=== PATIENT | female | born 1985 | race Caucasian/White ===

== ENCOUNTER 2016-07-31 20:50 | Emergency (ER) | payer SELFPAY ==
[~2016-07-31 20:50] MED LIST: ACET-749 PO; MTR600X PO; PRENTAB26 PO
[2016-07-31 20:52] VITALS: TEMP 36.7; O2SAT 98; Ht 165.1 cm
[2016-07-31] MEDS ORDERED: OXYCODONE HCL IR 5 MG TAB (IMMEDIATE RELEASE) PO STA (21:11)
[2016-07-31] MEDS ORDERED: ONDANSETRON 4MG OD TAB PO ONE (21:15)
--- NOTE | 2016-07-31 21:38 | DIAGNOSTIC IMAGING REPORT ---
HEAD CT NONCONTRAST CT DOSE: HISTORY: CHI/neck pain s/p fall TECHNIQUE: Multiaxial CT images of the head were performed without the use of intravenous contrast. Automated exposure control was utilized for this study. Comparison: None. Findings: The paranasal sinuses and mastoid air cells are clear. The calvarium and skull base are intact. The ventricles and sulci are within normal limits. There is no mass, hematoma, midline shift, or acute infarct. Impression: No acute intracranial abnormality. Electronically signed by: Adalberto Nguyen M.D. 07/31/2016 9:36 PM Dictated Date/Time: 07/31/2016 9:34 PM
--- NOTE | 2016-07-31 21:42 | DIAGNOSTIC IMAGING REPORT ---
CERVICAL SPINE CT CT DOSE: 1086.22 mGy.cm HISTORY: CHI/neck pain s/p fall TECHNIQUE: Multiaxial CT images of the cervical spine were performed and reformatted in the sagittal and coronal plane without the use of contrast. COMPARISON: None. FINDINGS: No fractures. No subluxation. Prevertebral soft tissues and the C1-C2 interval are intact. No pneumothorax. Posterior fusion defects at C1 with only a small portion of the C1 posterior arch remaining. This is considered developmental. Reversal of the normal lordotic curvature. IMPRESSION: No fractures within the cervical spine. Reversal of the normal lordotic curvature. Electronically signed by: Adalberto Nguyen M.D. 07/31/2016 9:40 PM Dictated Date/Time: 07/31/2016 9:37 PM
--- NOTE | 2016-07-31 21:49 | DIAGNOSTIC IMAGING REPORT ---
RIGHT KNEE 3 VIEWS HISTORY: R knee pain s/p fall Right COMPARISON: None. FINDINGS: There is no fracture or dislocation. Soft tissues are unremarkable. No radiopaque foreign bodies. No knee effusion. IMPRESSION: No fractures. Electronically signed by: Adalberto Nguyen M.D. 07/31/2016 9:47 PM Dictated Date/Time: 07/31/2016 9:46 PM
--- NOTE | 2016-07-31 21:50 | DIAGNOSTIC IMAGING REPORT ---
RIGHT WRIST 4 VIEWS HISTORY: R wrist pain s/p fall Right COMPARISON: None. FINDINGS: There is no fracture or dislocation. Soft tissues are unremarkable. No radiopaque foreign bodies. IMPRESSION: No fractures. Electronically signed by: Adalberto Nguyen M.D. 07/31/2016 9:49 PM Dictated Date/Time: 07/31/2016 9:47 PM
[2016-07-31] MEDS ORDERED: TRAMADOL HCL 50 MG HOME PACK PO ONE (22:30)
[2016-07-31] MEDS ORDERED: TRAM-10 PO (22:33)
[2016-07-31] MEDS ORDERED: ONDA4TAB10 SL (22:33)
[2016-07-31] MEDS ORDERED: ONDANSETRON HOME PACK 4MG OD TAB PO ONE (22:45)
[2016-07-31 23:40] VITALS: BP 133/103; PULSE 97
--- NOTE | 2016-07-31 23:54 | EMERGENCY ROOM VISIT NOTE ---
History First contact with patient: 20:56 Chief Complaint: FALL Stated Complaint: FELL DOWN HIT HEAD, ARM AND KNEE History of Present Illness The patient is a 30 year old female who presents to the Emergency Room with complaints of injuries after she slipped on a wet floor at the [employer] store. She complains of a head injury with headache. She is uncertain if she lost consciousness. She reports nausea and worsening frontal headache. She also reports mild neck pain. She also complains of significant right wrist and right knee pain from her fall. She denies back pain, chest pain, abdominal pain or left-sided extremity injuries. She rates her discomfort a 10 out of 10. Review of Systems 10 system review was performed and was negative except for pertinent positives and negatives as indicated in history of present illness Past Medical/Surgical History Medical Problems: (1) Headache (2) Toxemia of Social History Smoking Status: Never Smoker Alcohol Use: none Drug Use: none Marital Status: Housing Status: lives with significant other Current/Historical Medications Scheduled Ondasetron Odt (Zofran Odt), 4 MG SL Q6H Scheduled PRN Tramadol (Ultram), 1-2 TAB PO Q4H PRN for Pain Allergies Coded Allergies: No Known Allergies (Unverified , 07/31/16) Physical Exam Vital Signs Date Time Temp Pulse Resp B/P Pulse Ox O2 Delivery O2 Flow Rate FiO2 07/31/16 23:40 97 18 133/103 07/31/16 20:52 36.7 90 21 151/104 98 Room Air Physical Exam CONSTITUTIONAL: Healthy and well nourished. Alert and oriented X 3 with positive affect. She appears in moderately severe discomfort from her headache , and holding an emesis bag. HEENT: Normocephalic, atraumatic. No lacerations or hematomas. Pupils equal, round and reactive. No subconjunctival hemorrhage, epistaxis, hemotympanum, raccoon's eyes or Moreland sign. NECK: The patient has mild tenderness to palpation of the cervical musculature without any focal central cervical spine tenderness to palpation. RESPIRATORY: Clear to auscultation bilaterally with no wheezing, crackles, rhonchi or stridor. CARDIOVASCULAR: Regular rate and rhythm with no murmurs, rubs or gallops. GASTROINTESTINAL: Bowel sounds present in all quadrants. Soft and nontender to palpation. MUSCULOSKELETAL: Examination shows diffuse edema of the right wrist and knee. No open wounds noted. She is tender to palpation about the entire wrist and knee region. No knee effusion appreciated. The patient refused any range of motion of the wrist or knee. Capillary refill is less than 2 seconds of the right hand. She otherwise has no tenderness to palpation through the thoracolumbar spine or ribs. Distal pulses are intact. INTEGUMENTARY: No rash or other significant dermatologic conditions noted. NEUROLOGIC: No focal neurologic deficits noted. Upper and lower extremities are sensory intact. Normal finger to nose test. Negative pronator drift. Medical Decision & Procedures ER Provider Diagnostic Interpretation: My interpretation of right wrist x-rays does not show any acute fractures or carpal bone dislocation. Radiologist report is as follows: RIGHT WRIST 4 VIEWS HISTORY: R wrist pain s/p fall Right COMPARISON: None. FINDINGS: There is no fracture or dislocation. Soft tissues are unremarkable. No radiopaque foreign bodies. IMPRESSION: No fractures. My interpretation of right knee x-rays does not show any acute fractures, dislocation, patellar subluxation or joint effusion. Radiologist report is as follows: The RIGHT KNEE 3 VIEWS HISTORY: R knee pain s/p fall Right COMPARISON: None. FINDINGS: There is no fracture or dislocation. Soft tissues are unremarkable. No radiopaque foreign bodies. No knee effusion. IMPRESSION: No fractures. Noncontrast CT of the head does not show any fracture, intracranial bleed, midline shift or mass effect. Radiologist report is as follows: HEAD CT NONCONTRAST CT DOSE: HISTORY: CHI/neck pain s/p fall TECHNIQUE: Multiaxial CT images of the head were performed without the use of intravenous contrast. Automated exposure control was utilized for this study. Comparison: None. Findings: The paranasal sinuses and mastoid air cells are clear. The calvarium and skull base are intact. The ventricles and sulci are within normal limits. There is no mass, hematoma, midline shift, or acute infarct. Impression: No acute intracranial abnormality. Noncontrast CT of the cervical spine does not show any acute fracture or subluxation. Lordotic reversal is noted. Radiologist report is as follows: CERVICAL SPINE CT CT DOSE: 1086.22 mGy.cm HISTORY: CHI/neck pain s/p fall TECHNIQUE: Multiaxial CT images of the cervical spine were performed and reformatted in the sagittal and coronal plane without the use of contrast. COMPARISON: None. FINDINGS: No fractures. No subluxation. Prevertebral soft tissues and the C1-C2 interval are intact. No pneumothorax. Posterior fusion defects at C1 with only a small portion of the C1 posterior arch remaining. This is considered developmental. Reversal of the normal lordotic curvature. IMPRESSION: No fractures within the cervical spine. Reversal of the normal lordotic curvature. Medications Administered Medications (Trade) Dose Ordered Sig/[facility] Route Start Time Stop Time Status Last Admin Dose Admin Oxycodone HCl (Roxicodone Immediate Rel Tab) 5 mg NOW STAT PO 07/31/16 21:11 07/31/16 21:14 DC 07/31/16 21:11 5 MG Ondansetron HCl (Zofran Odt) 4 mg ONE ONCE PO 07/31/16 21:15 07/31/16 21:16 DC 07/31/16 21:15 4 MG Tramadol HCl (Ultram Home Pack) 1 homepack UD ONCE PO 07/31/16 22:30 07/31/16 22:31 DC 07/31/16 22:37 1 HOMEPACK Ondansetron HCl (ZOFRAN ODT 4MG Home Pack) 1 homepack UD ONCE PO 07/31/16 22:45 07/31/16 22:46 DC 07/31/16 22:37 1 HOMEPACK ED Course Patient history and physical exam were performed. Nurse's notes were reviewed. Vital signs were reviewed, showing a blood pressure 151/104. The patient is not tachycardic. The patient was administered OxyIR 5 mg and Zofran 4 mg ODT for pain and nausea. X-rays of the right wrist and right knee were normal. Noncontrast CT of the head and cervical spine were also normal. The patient was advised of her normal studies. At this point, a wrist lacer and knee immobilizer were applied. The patient was also dispensed a walker to help with ambulation. The patient was provided home packs and prescriptions for Ultram and Zofran ODT. The patient reports that she currently does not have a family doctor. She was provided contact information for the [facility] as they are next on our list for unassigned outpatient follow-up. She was also provided a concussion handout, and instructed to limit her activities until her symptoms improve. Several times throughout the evaluation, the patient's mother interjected regarding the choice of imaging studies and workup that was being performed.. Prior to discharge, she wanted to review the images. I did explain that I as well as the radiologist reviewed the x-rays and were normal. Reviewing the x- rays, it is obvious that she has not had any training reading x-rays. She became frustrated, stating that there are several areas where she hurts. The patient also was saying that her wrist and knee were still painful after being given pain medications. I had to politely advise her that she did have a fall and injury, and that the pain medications will not completely take the pain away. I offered to perform additional imaging studies and administer additional pain medication, but the patient reported that she would rather go home and go to sleep. The patient also apologized for her mother, stating that she is just worried about her injuries from her fall. The patient was welcome to return to the emergency department as needed for any additional symptoms from her fall. It is also noted that her blood pressure was elevated, likely secondary to pain response. She was instructed to discuss this with her PCP during her follow- up. The patient voiced understanding of all discharge instructions, was happy with plan of care, and rated her pain a 4 out of 10 at the time of discharge. Impression Primary Impression: Concussion Additional Impressions: Right wrist sprain Injury of right knee Fall from slipping on wet surface Elevated blood pressure reading Departure Information Prescriptions Ondasetron Odt (ZOFRAN ODT) 4 Mg Tab 4 MG SL Q6H for Nausea, #10 TAB Prov: Luis Tuttle PA 07/31/16 Tramadol (Ultram) 50 Mg Tab 1-2 TAB PO Q4H Y for Pain, #30 TAB For Initial Treatment Prov: Luis Tuttle PA 07/31/16 Referrals No Doctor, Assigned (PCP) Patient Instructions [facility] Problem Qualifiers Primary Impression: Concussion Encounter type: initial encounter Loss of consciousness presence/duration: without LOC Qualified Codes: S06.0X0A - Concussion without loss of consciousness, initial encounter Additional Impressions: Right wrist sprain Encounter type: initial encounter Qualified Codes: S63.501A - Unspecified sprain of right wrist, initial encounter Injury of right knee Encounter type: initial encounter Qualified Codes: S89.91XA - Unspecified injury of right lower leg, initial encounter Fall from slipping on wet surface Encounter type: initial encounter Qualified Codes: W01.0XXA - Fall on same level from slipping, tripping and stumbling without subsequent striking against object, initial encounter
== END 2016-07-31 23:41 | disposition home or self-care (01) ==
LOC: C.EDB 20:52 → C.EDD 23:41
DX: S06.0X0A Concussion without loss of consciousness, initial encounter (principal); S63.501A Unspecified sprain of right wrist, initial encounter; S89.91XA Unspecified injury of right lower leg, initial encounter; W01.0XXA Fall on same level from slipping, tripping and stumbling without subsequent striking against object, initial encounter; R03.0 Elevated blood-pressure reading, without diagnosis of hypertension

== ENCOUNTER → 2017-05-17 | Outpatient (CLI) | payer OTHER | END | disposition home or self-care (01) | LOC: C.PAPS 07:47 | PROVIDERS: ATTEND Obstetrics & Gynecology | DX: Z34.81 Encounter for supervision of other normal pregnancy, first trimester (principal) ==

== ENCOUNTER → 2017-05-18 | Outpatient (CLI) | payer OTHER | END | disposition home or self-care (01) | LOC: C.LABSPEC 14:25 | PROVIDERS: ATTEND Obstetrics & Gynecology | DX: Z34.81 Encounter for supervision of other normal pregnancy, first trimester (principal) ==

== ENCOUNTER → 2017-05-31 | Outpatient (CLI) | payer OTHER | END | disposition home or self-care (01) | LOC: C.LABSPEC 14:46 | PROVIDERS: ATTEND Obstetrics & Gynecology | DX: O12.11 Gestational proteinuria, first trimester (principal) ==

== ENCOUNTER → 2017-06-30 | Outpatient (CLI) | payer OTHER ==
[2017-06-30 16:00] LABS: ALBUMIN 2.8 gm/dl (3.4-5.0); BLOOD UREA NITROGEN 9 mg/dl (7-18); CALCIUM 9.2 mg/dl (8.5-10.1); CARBON DIOXIDE 24 mmol/L (21-32); CREATININE 0.55 mg/dl (0.60-1.20); GLUCOSE 93 mg/dl (70-99); POTASSIUM 3.8 mmol/L (3.5-5.1); SODIUM 135 mmol/L (136-145)
[2017-06-30 16:01] LABS: PHOSPHORUS 3.3 mg/dl (2.5-4.9)
== END | disposition home or self-care (01) ==
LOC: C.LAB1850 13:43
PROVIDERS: ATTEND Internal Medicine Nephrology
DX: R80.9 Proteinuria, unspecified (principal)

== ENCOUNTER → 2017-07-06 | Outpatient (CLI) | payer OTHER ==
--- NOTE | 2017-07-06 11:22 | DIAGNOSTIC IMAGING REPORT ---
RENAL ULTRASOUND CLINICAL HISTORY: NEPHROTIC SYNDROME COMPARISON STUDY: CT of the abdomen and pelvis September 27, 2012. TECHNIQUE: Sonography of the kidneys and the urinary bladder was performed. FINDINGS: Both kidneys measure 13.8 cm in maximal dimension. Renal echogenicity, size and cortical thickness are normal. There is no hydronephrosis. No calculi or masses are identified by sonography. Bladder is unremarkable by sonography. IMPRESSION: Normal sonographic appearance of the kidneys. No hydronephrosis. Electronically signed by: Andrae Knight M.D. 07/06/2017 11:21 AM Dictated Date/Time: 07/06/2017 11:20 AM
== END | disposition home or self-care (01) ==
LOC: C.ULTR 10:33
PROVIDERS: ATTEND Internal Medicine Nephrology
DX: N04.9 Nephrotic syndrome with unspecified morphologic changes (principal)

== ENCOUNTER → 2017-08-01 | Outpatient (CLI) | payer OTHER | END | disposition home or self-care (01) | LOC: C.LAB 14:00 | PROVIDERS: ATTEND Internal Medicine | DX: R80.9 Proteinuria, unspecified (principal) ==

== ENCOUNTER 2017-10-31 12:15 | Outpatient (CLI) | payer OTHER ==
[~2017-10-31 12:15] MED LIST changes: -ACET-749 PO; +DOXY30TA PO; +LABE100T3 PO; -MTR600X PO
== END 2017-10-31 13:20 | disposition home or self-care (01) ==
LOC: C.OPB 12:15 → C.LD 12:16 → C.OPB 13:20
PROVIDERS: ATTEND Obstetrics & Gynecology
DX: O16.9 Unspecified maternal hypertension, unspecified trimester (principal); Z3A.00 Weeks of gestation of pregnancy not specified

== ENCOUNTER 2017-11-07 20:31 | Outpatient (CLI) | payer OTHER ==
[~2017-11-07] VITALS: Ht 160 cm; Wt 108.2 kg
[2017-11-07 21:13] VITALS: Ht 160 cm; Wt 108.2 kg
== END 2017-11-07 21:05 | disposition home or self-care (01) ==
LOC: C.OPB 20:31 → C.LD 20:31 → C.OPB 21:05 → C.LD 21:05
PROVIDERS: ATTEND Obstetrics & Gynecology
DX: O26.899 Other specified pregnancy related conditions, unspecified trimester (principal); Z3A.00 Weeks of gestation of pregnancy not specified

== ENCOUNTER 2017-11-14 21:45 | Outpatient (CLI) | payer OTHER | END 2017-11-14 23:05 | disposition home or self-care (01) | LOC: C.LD 21:45 → C.OPB 21:45 | PROVIDERS: ATTEND Obstetrics & Gynecology | DX: O16.9 Unspecified maternal hypertension, unspecified trimester (principal); Z3A.00 Weeks of gestation of pregnancy not specified ==

== ENCOUNTER 2017-11-21 11:51 | Outpatient (CLI) | payer OTHER ==
[~2017-11-21 11:51] MED LIST changes: -DOXY30TA PO
--- NOTE | 2017-11-23 13:26 | EDITING REQUIRED CODING QUERY ---
DIAGNOSIS NEEDED To promote full compliance with coding requirements relating to patient care, physician participation is requested in all cases of engagement quality consultant uncertainty. Please assist us with the question(s) below: Coding Question: The patient received care in labor and delivery on 11/21/17 as noted within the record. Please document the diagnosis that is being addressed by the medication/treatment. Provider Response: DIAGNOSIS:chronic proteinuria WEEKS OF GESTATION: 35 weeks Thank you for your assistance, Bernarda Mccarthy - Engagement Quality Consultant
== END 2017-11-21 12:25 | disposition home or self-care (01) ==
LOC: C.OPB 11:51 → C.LD 11:52 → C.OPB 12:25
PROVIDERS: ATTEND Obstetrics & Gynecology
DX: O12.13 Gestational proteinuria, third trimester (principal); Z3A.35 35 weeks gestation of pregnancy

== ENCOUNTER 2017-11-28 14:55 | Outpatient (CLI) | payer OTHER ==
--- NOTE | 2017-12-01 09:16 | EDITING REQUIRED CODING QUERY ---
DIAGNOSIS NEEDED To promote full compliance with coding requirements relating to patient care, physician participation is requested in all cases of flying teacher uncertainty. Please assist us with the question(s) below: Coding Question: The patient received care in labor and delivery on 11/28/17 as noted within the record. Please document the diagnosis that is being addressed by the medication/treatment. Provider Response: DIAGNOSIS: Chronic proteinuria Intrauterine 35 weeks 5 days WEEKS OF GESTATION: Thank you for your assistance, Bernarda Mccarthy - Wildlife Photographer
== END 2017-11-28 15:53 | disposition home or self-care (01) ==
LOC: C.OPB 14:55 → C.LD 14:56 → C.OPB 15:53
PROVIDERS: ATTEND Obstetrics & Gynecology
DX: O12.13 Gestational proteinuria, third trimester (principal); Z3A.35 35 weeks gestation of pregnancy

== ENCOUNTER 2017-11-30 19:25 | Outpatient (CLI) | payer OTHER ==
[~2017-11-30] VITALS: Ht 160 cm; Wt 108.0 kg
[2017-11-30 19:59] VITALS: Ht 160 cm; Wt 108.0 kg
[2017-11-30] MEDS ORDERED: RANI1TAB77 (20:03)
--- NOTE | 2017-11-30 21:04 | HISTORY & PHYSICAL EXAMINATION ---
DATE OF ADMISSION: 11/30/2017 CHIEF COMPLAINT: Contractions, intrauterine 36 weeks gestation, chronic proteinuria. HISTORY OF PRESENT ILLNESS: The patient is a 32-year-old 2, para 1. She has a history of chronic proteinuria. She had had it for her first . Her second is well dated her due date is 12/28/2017. She is currently being followed also by a service crew leader outside of the hospital. He occasionally does lab work on her. Her due date is 12/28/2017. She has been well dated. First was an induction at 39 weeks, boy, 8 pounds 11 ounces 2-1/2 years ago. Present has been complicated by hypertension. She was placed on labetalol 3 times a day, early in her . It is well controlled, if she does not miss any of her doses. She stated that she had contractions about 5:00, called the office thought she was in labor, came to the hospital, and the cervix was posterior, closed. There were no contraction pattern noted on the monitor NST was reactive. She has not complained of any bleeding or leakage of fluid. She was instructed to return to the office later in the week and we would set up a date for induction. PAST MEDICAL HISTORY: She has 2-1/2-year-old boy in good health. ALLERGIES: No known drug allergies. PAST SURGICAL HISTORY: No previous surgery. MEDICAL HISTORY: Chronic proteinuria and hypertension. SOCIAL HISTORY: No smoking. No alcohol intake. Fabs-ma-btmw mom. FAMILY HISTORY: Mom 46 of Crohn's disease. Father 60, high blood pressure, diabetes, elevated cholesterol. Two brothers, 1 sister. One brother has high blood pressure. One sister has thyroid disease. REVIEW OF SYSTEMS: She occasionally gets headaches especially when she misses her labetalol dose. PHYSICAL EXAMINATION: GENERAL: Well-developed, well-nourished 32-year-old white female, alert, oriented x3 and cooperative in no acute distress, appears stated age. EYES: Conjunctivae are pink. Sclerae white, no evidence of jaundice. EARS: Had normal light reflex bilaterally. HEART: Had regular rhythm. S1 and S2 were normal. ABDOMEN: Soft and nontender, consistent with 36 weeks gestation. No CVA tenderness, no calf tenderness. PELVIC: Cervix is posterior, closed, presenting part floating. MUSCULOSKELETAL: No calf tenderness. IMPRESSIONS OF THIS CASE: Intrauterine 36 weeks gestation, hypertension and chronic proteinuria, false labor. YOALNDAD
== END 2017-11-30 20:42 | disposition home or self-care (01) ==
LOC: C.OPB 19:25 → C.LD 19:25 → C.OPB 20:42
PROVIDERS: ATTEND Obstetrics & Gynecology
DX: O12.13 Gestational proteinuria, third trimester (principal); O62.9 Abnormality of forces of labor, unspecified; O16.3 Unspecified maternal hypertension, third trimester; Z3A.36 36 weeks gestation of pregnancy

== ENCOUNTER 2019-12-25 21:46 | Observation (INO) ==
[2019-12-25] MEDS ORDERED: KETOROLAC 30 MG/ML VIAL IV STA (22:45)
[2019-12-25] MEDS ORDERED: SODIUM CHLORIDE 0.9% 1000ML 1,000 ML IV SCH (22:45)
[2019-12-25] MEDS ORDERED: ONDANSETRON INJ 2 MG/ML 2 ML VIAL IV STA (22:45)
[2019-12-25] MEDS ORDERED: MoRPHine SULFATE 4 MG/ML 1 ML CARP\\VIAL IV STA (22:45)
[2019-12-25 22:58] LABS: Basophils # (auto) 0.02 K/uL (0-0.2); Basophils % (auto) 0.1 %; Eosinophils # (auto) 0.05 K/uL (0-0.5); Eosinophils % (auto) 0.3 %; Hematocrit (blood only) 39.6 % (37-47); Hemoglobin 12.8 g/dL (12.0-16.0); Immature Granulocytes # (auto) 0.07 K/uL (0.00-0.02); Immature Granulocytes % (auto) 0.4 %; Lymphocytes # (auto) 1.14 K/uL (1.2-3.4); Lymphocytes % (auto) 6.5 %; Mean Corpuscular Hemoglobin 24.3 pg (25-34); Mean Corpuscular Hgb Conc 32.3 g/dL (32-36); Mean Corpuscular Volume 75.3 fL (80-100); Mean Platelet Volume 9.7 fL (7.4-10.4); Monocytes # (auto) 1.05 K/uL (0.11-0.59); Neutrophils # (auto) 15.19 K/uL (1.4-6.5); Neutrophils % (auto) 86.7 %; Platelet Count 345 K/uL (130-400); RDW Coefficient of Variation 15.7 % (11.5-14.5); RDW Standard Deviation 42.8 fL (36.4-46.3); Red Blood Count 5.26 M/uL (4.2-5.4); White Blood Count 17.52 K/uL (4.8-10.8)
[2019-12-25 23:13] LABS: Albumin Level 3.2 gm/dl (3.4-5.0); BUN Creatinine Ratio 18.6 (10-20); Est GFR (African American) 74.5; Est GFR (Non-African American) 64.3; Potassium 3.8 mmol/L (3.5-5.1)
[2019-12-25 23:16] LABS: Albumin Globulin Ratio 0.7 (0.9-2); Bilirubin,Total 0.2 mg/dl (0.2-1); Globulin 4.6 gm/dl (2.5-4.0); Total Protein 7.8 gm/dl (6.4-8.2)
[2019-12-25 23:22] LABS: Bacteria Urine Automated Negative (Negative); Blood Urine 3+ (Negative); Epithelial Cell Urine Auto >30 /lpf (0-5); Glucose Urine UA Trace (Negative); Ketones Urine Negative (Negative); Leukocyte Esterase Urine 2+ (Negative); Nitrite Urine Positive (Negative); Protein Urine 3+ (Negative); RBC Urine Automated >30 /hpf (0-4); Specific Gravity Urine 1.017 (1.000-1.030); Urobilinogen Urine Negative (Negative); WBC Urine Automated >30 /hpf (0-5)
[2019-12-25 23:33] LABS: Appearance Urine Turbid (Clear); Color Urine Red
[2019-12-25 23:43] LABS: Bilirubin Urine Negative (Negative); Ictotest Urine Negative (Negative)
[2019-12-25] MEDS ORDERED: HYDROmorphone INJ 0.5 MG/0.5 ML SYR IV STA (23:59)
--- NOTE | 2019-12-26 03:15 | History & Physical Report ---
Date of Service December 26, 2019 Assessment & Plan (1) Flank pain: s/p cystoscopy performed yesterday. Pain minimally improved by PO medication -observation to medical floor -Continue Tylenol, Percocent PRN -Toradol, Dilaudid PRN -Zofran PRN -Continue Cipro, Oxybutynin and Flomax Present on Admission?: Yes (2) GERD (gastroesophageal reflux disease): Chronic. Stable -Continue Protonix F/E/N - 1L NSS given in ER, electrolytes WNL, Regular diet as tolerated Ppx - Protonix as above, low risk for DVT Code - Full Dispo - Observation to medical floor Patient's son has missed school yesterday and will miss it again today to help take care of siblings while patient is in the hospital. Please provide a school excuse for 12/25/19 and 12/26/19 for Jacob Ritter Present on Admission?: Yes History of Present Illness Chief Complaint: flank pain Primary Care Provider: NO PCP 34yo female with history of GERD s/p cystoscopy with stent placement performed by Dr. Ley of Urology yesterday presenting with severe flank pain. Pain is mostly on right flank with radiation to anterior abdomen. Associate with nausea and one episode of non-bloody/non-bilious vomiting. She denies fevers/chill/rigors. Took PO Percocet x 2 tabs at home with minimal relief. No additional complaints at this time ER Course: Dilaudid 0.5mg, Toradol 30mg, Morphne 4mg, Zofran 4mg, NSS x 1L [place] rgies Allergy/AdvReac Type Severity Reaction Status Date / Time No Known Allergies Allergy Verified 12/25/19 22:50 Home Medications Home Medications Medication Instructions Recorded Confirmed Type pantoprazole [Protonix] 40 mg PO DAILY PRN 12/11/19 12/25/19 History tamsulosin 0.4 mg PO HS #30 cap 12/24/19 12/25/19 Rx ciprofloxacin HCl 500 mg tablet 500 mg PO BID 3 Days #6 tab 12/25/19 12/25/19 Rx oxybutynin chloride 5 mg PO BID PRN 12/25/19 12/25/19 History oxycodone-acetaminophen [Percocet] 1 tab PO Q8H PRN 09/22/20 09/22/20 History phenazopyridine [Pyridium] 200 mg PO Q8H PRN 12/25/19 12/25/19 History Past Med/Surg History Medical History (Updated 12/26/19 @ 03:13 by Radha Andino DO) Blood in urine found in u/a GERD (gastroesophageal reflux disease) Morbid obesity Proteinuria 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 Surgical History Hx of tubal ligation Hx of wisdom tooth extraction NO ANESTHESIA USED/ONLY NOVOCAINE Family History Father Family history of diabetes mellitus Brother Family history of diabetes mellitus Grandfather (Maternal) Family history of diabetes mellitus Social History Smoking Status: Former smoker Second Hand Exposure: No; Hx Alcohol Use: No Hx Substance Use: No Preferred Language: Italian Communication Ability: Effective Kiln Hand Required: No Beliefs That Will Affect Care: None marital status: Current Living Situation: Spouse Feels Safe at Home: Yes Assistive Devices: None Review of Systems Review of Systems: All systems reviewed & are unremarkable except as noted in HPI & below Physical Exam Physical Exam: General: patient resting comfortably, NAD, non-toxic in appearance, AA&O x 4 Skin: warm, dry, intact, no rashes or lesions HEENT: NC/AT, PERRL, EOMI, anicteric sclera, conjunctiva without injection, external ear normal to inspection and nontender, nares patent, moist mucus membranes, dentition intact, no oropharyngeal lesions, neck supple, trachea midline, no LAD, no thyromegaly, no JVD Heart: +S1/S2, regular, no m/r/g Lungs: equal air entry bilaterally, no rales/rhonchi/wheezes Abd: +BS, soft, mildly tender in lower abdomen, no rebound/guarding/peritoneal signs, ND, no masses/organomegaly/ascites Ext: warm, 2+ pulses in UE/LE bilaterally, no clubbing/cyanosis or edema Neuro: nonfocal, patient AA&O x 4, speech intact, no facial droop, moving all extremities on command with equal strength 5/5 Results & Data Results & Data ([facility]) Vital Signs (Past 12 Hours) Vital Signs Temp Pulse Pulse Resp BP BP Pulse Ox 12/26/19 00:10 137/87 12/25/19 23:46 87 16 97 12/25/19 21:51 36.4 C L 91 H 18 168/115 H 96 Laboratory Results Lab Results 12/25/19 12/25/19 12/25/19 Range/Units 22:34 22:34 22:59 WBC 17.52 H (4.8-10.8) K/uL RBC 5.26 (4.2-5.4) M/uL Hgb 12.8 (12.0-16.0) g/dL Hct 39.6 (37-47) % MCV 75.3 L (80-100) fL MCH 24.3 L (25-34) pg MCHC 32.3 (32-36) g/dL RDW Std Deviation 42.8 (36.4-46.3) fL RDW Coeff of Amrit 15.7 H (11.5-14.5) % Plt Count 345 (130-400) K/uL MPV 9.7 (7.4-10.4) fL Immature Gran % (Auto) 0.4 % Neut % (Auto) 86.7 % Lymph % (Auto) 6.5 % [place] % (Auto) 6.0 % Eos % (Auto) 0.3 % Baso % (Auto) 0.1 % Neut # (Auto) 15.19 H (1.4-6.5) K/uL Lymph # (Auto) 1.14 L (1.2-3.4) K/uL [place] # (Auto) 1.05 H (0.11-0.59) K/uL Eos # (Auto) 0.05 (0-0.5) K/uL Baso # (Auto) 0.02 (0-0.2) K/uL Immature Gran # (Auto) 0.07 H (0.00-0.02) K/uL Sodium 138 (136-145) mmol/L Potassium 3.8 (3.5-5.1) mmol/L Chloride 105 (98-107) mmol/L Carbon Dioxide 24 (21-32) mmol/L Anion Gap 9.0 (3-11) BUN 21 H (7-18) mg/dl Creatinine 1.11 (0.6-1.2) mg/dl Est Cr Clr Drug Dosing 89.0 ml/min Est GFR ( Amer) 74.5 Est GFR (Non-Af Amer) 64.3 BUN/Creatinine Ratio 18.6 (10-20) Glucose 144 H (70-99) mg/dl Calcium 9.0 (8.5-10.1) mg/dl Total Bilirubin 0.2 (0.2-1) mg/dl AST 15 (15-37) U/L ALT 21 (12-78) U/L Alkaline Phosphatase 95 (45-117) U/L Total Protein 7.8 (6.4-8.2) gm/dl Albumin 3.2 L (3.4-5.0) gm/dl Globulin 4.6 H (2.5-4.0) gm/dl Albumin/Globulin Ratio 0.7 L (0.9-2) Urine Color Red Urine Appearance Turbid A (Clear) Urine pH 6.0 (4.5-7.5) Ur Specific [place] 1.017 (1.000-1.030) Urine Protein 3+ H (Negative) Urine Glucose (UA) Trace H (Negative) Urine Ketones Negative (Negative) Urine Blood 3+ H (Negative) Urine Nitrite Positive A (Negative) Urine Bilirubin Negative (Negative) Urine Urobilinogen Negative (Negative) Ur Leukocyte Esterase 2+ H (Negative) Urine WBC (Auto) >30 H (0-5) /hpf Urine RBC (Auto) >30 H (0-4) /hpf U Hyaline Cast (Auto) 1-5 (0-5) /lpf U Epithel Cells (Auto) >30 H (0-5) /lpf Urine Bacteria (Auto) Negative (Negative) Code Status & VTE Plan Code Status FULL PG Care Time/CCT Total # of Minutes Spent Total Time Spent with Patient: Total time spent is greater than 50% in coordination of care (as documented) at patient's floor/unit and/or counseling patient: Coding Level of Care Code 57291 OBS Care - Level 2 Diagnoses Flank pain R10.9 GERD (gastroesophageal reflux disease) K21.9 Esophagitis presence: esophagitis presence not specified (1) GERD (gastroesophageal reflux disease) Esophagitis presence: esophagitis presence not specified Qualified Code(s): K21.9 - Gastro-esophageal reflux disease without esophagitis
--- NOTE | 2019-12-26 03:33 | Emergency Department Note ---
History of Present Illness General Chief complaint: Abdominal Pain Stated complaint: PAIN IN LOWER ABD Time Seen by Provider: 12/25/19 22:33 History of Present Illness Maximum Pain Intensity: 8 This is a 34-year-old female presenting to the emergency department for left- sided abdominal pain. The patient was seen at this facility yesterday where she was taken to the OR for persistent hematuria and proteinuria. The patient went to the operating suite under the care of Dr. Ley of urology for cystoscopy. Evidently during the procedure she was identified to have a stricture of the left distal ureter. Ureteral stent was placed without significant difficulty. The patient was given a few days of Percocet, Cipro, and Flomax for pain control. The patient states that today she has had increasing and worsening pain that she rates a 10/10. She essentially has not had anything to eat in 2 days as she was n.p.o. prior to the procedure and is very nauseated with vomiting now. She has not had fevers or chills. No chest pain, chest tightness, shortness of breath, or flank pain. She did have a negative COVID testing prior to the procedure. The patient did take 2 of her oxycodone today without significant improvement of her symptoms. She does not identify aggravating or alleviating factors. Home Medications Home Medications Medication Instructions Recorded Confirmed Type pantoprazole [Protonix] 40 mg PO DAILY PRN 12/11/19 12/25/19 History tamsulosin 0.4 mg PO HS #30 cap 12/24/19 12/25/19 Rx ciprofloxacin HCl 500 mg tablet 500 mg PO BID 3 Days #6 tab 12/25/19 12/25/19 Rx oxybutynin chloride 5 mg PO BID PRN 12/25/19 12/25/19 History oxycodone-acetaminophen [Percocet] 1 tab PO Q8H PRN 12/25/19 12/25/19 History phenazopyridine [Pyridium] 200 mg PO Q8H PRN 12/25/19 12/25/19 History Allergies Allergy/AdvReac Type Severity Reaction Status Date / Time No Known Allergies Allergy Verified 12/25/19 22:50 Past Med/Surg History Medical History Blood in urine found in u/a GERD (gastroesophageal reflux disease) Morbid obesity Proteinuria DR. SETHI [employer] Surgical History Hx of tubal ligation Hx of wisdom tooth extraction NO ANESTHESIA USED/ONLY NOVOCAINE Family History Father Family history of diabetes mellitus Brother Family history of diabetes mellitus Grandfather (Maternal) Family history of diabetes mellitus Social History Smoking Status: Former smoker Second Hand Exposure: No; Hx Alcohol Use: No Hx Substance Use: No Preferred Language: Polish Communication Ability: Effective Criminal Justice Faculty Required: No Beliefs That Will Affect Care: None marital status: Current Living Situation: Spouse Feels Safe at Home: Yes Assistive Devices: None Review of Systems A total of 10 systems reviewed and were otherwise negative Physical Exam Vital Signs Vital Signs - 24 hr 12/25/19 21:51 12/25/19 23:46 12/26/19 00:10 Temperature 36.4 C L Temperature Source Oral Pulse Rate 91 H Pulse Rate [Right Finger] 87 Respiratory Rate 18 16 Respiratory Effort / Characteristics Non-Labored Respiratory Depth Normal Normal Blood Pressure 168/115 H Blood Pressure [Right Arm] 137/87 Blood Pressure Mean 132 Blood Pressure Mean [Right Arm] 103 Pulse Oximetry 96 97 Oxygen Delivery Method Room Air Nasal Cannula Oxygen Flow Rate 2 Sepsis Recent Fever Within 48 Hours No Sepsis New/Unexplained Change in Mental Status No Sepsis Action Taken by Nursing No Action Required VITALS: Vitals are noted on the nurse's note and reviewed by myself. Vital signs stable. GENERAL: Well-developed, well-nourished, white female who is in moderate di scomfort secondary to her stated complaint. HEART: Regular rate and rhythm without murmurs gallops or rubs. LUNGS: Clear to auscultation bilaterally without wheezes, rales or rhonchi. No retractions or accessory muscle use. ABDOMEN: Positive normal bowel sounds x 4. Soft, nontender, without masses or organomegaly. No guarding or rebound tenderness. No CVA tenderness. MUSCULOSKELETAL: No muscle atrophy, erythema, or edema noted. Full range of motion in all extremities. NEURO: Patient was alert and oriented to person place and time. CN II through XII grossly intact. SKIN: The skin was without rashes, erythema, edema, or bruising. Capillary refill less than 2 seconds. Course Administered Medications Discontinued Medications Hydromorphone HCl (Hydromorphone Inj 0.5 Mg/0.5 Ml Syr) 0.5 mg IV NOW STA Stop: 12/26/19 00:00 Last Admin: 12/26/19 00:04 Dose: 0.5 mg Documented by: [id number] Sodium Chloride (Nss 1000ml) 1,000 mls @ 999 mls/hr IV .Q1H1M LIZ Stop: 12/25/19 23:45 Last Infusion: 12/26/19 00:09 Dose: 0 mls/hr Documented by: [id number] Admin: 12/25/19 22:50 Dose: 999 mls/hr Documented by: [id number] Ketorolac Tromethamine (Ketorolac 30 Mg/Ml Vial) 30 mg IV NOW STA Stop: 12/25/19 22:46 Last Admin: 12/25/19 22:50 Dose: 30 mg Documented by: [id number] Morphine Sulfate (Morphine Sulfate 4 Mg/Ml 1 Ml Carp\Vial) 4 mg IV NOW STA Stop: 12/25/19 22:46 Last Admin: 12/25/19 22:50 Dose: 4 mg Documented by: [id number] Ondansetron HCl (Ondansetron Inj 2 Mg/Ml 2 Ml Vial) 4 mg IV NOW STA Stop: 12/25/19 22:46 Last Admin: 12/25/19 22:50 Dose: 4 mg Documented by: [id number] Medical Decision Making Differential Diagnosis Differential diagnosis: Etiologies such as postprocedural pain, stent pain, ureteral calculi, UTI, biliary colic, cholecystitis, hepatitis, pancreatitis, cardiac disease, pancreatitis, gastritis, peptic ulcer disease, appendicitis, cystitis, diverticulitis, mesenteric ischemia, inflammatory bowel disease, ileus, bowel obstruction, testicular/adnexal torsion, aortic pathology, shingles, as well as others were considered Laboratory Data Result diagrams: 12/25/19 22:34 12/25/19 22:34 Lab Results 12/25/19 12/25/19 12/25/19 Range/Units 22:34 22:34 22:59 WBC 17.52 H (4.8-10.8) K/uL RBC 5.26 (4.2-5.4) M/uL Hgb 12.8 (12.0-16.0) g/dL Hct 39.6 (37-47) % MCV 75.3 L (80-100) fL MCH 24.3 L (25-34) pg MCHC 32.3 (32-36) g/dL RDW Std Deviation 42.8 (36.4-46.3) fL RDW Coeff of Amrit 15.7 H (11.5-14.5) % Plt Count 345 (130-400) K/uL MPV 9.7 (7.4-10.4) fL Immature Gran % (Auto) 0.4 % Neut % (Auto) 86.7 % Lymph % (Auto) 6.5 % [place] % (Auto) 6.0 % Eos % (Auto) 0.3 % Baso % (Auto) 0.1 % Neut # (Auto) 15.19 H (1.4-6.5) K/uL Lymph # (Auto) 1.14 L (1.2-3.4) K/uL [place] # (Auto) 1.05 H (0.11-0.59) K/uL Eos # (Auto) 0.05 (0-0.5) K/uL Baso # (Auto) 0.02 (0-0.2) K/uL Immature Gran # (Auto) 0.07 H (0.00-0.02) K/uL Sodium 138 (136-145) mmol/L Potassium 3.8 (3.5-5.1) mmol/L Chloride 105 (98-107) mmol/L Carbon Dioxide 24 (21-32) mmol/L Anion Gap 9.0 (3-11) BUN 21 H (7-18) mg/dl Creatinine 1.11 (0.6-1.2) mg/dl Est Cr Clr Drug Dosing 89.0 ml/min Est GFR ( Amer) 74.5 Est GFR (Non-Af Amer) 64.3 BUN/Creatinine Ratio 18.6 (10-20) Glucose 144 H (70-99) mg/dl Calcium 9.0 (8.5-10.1) mg/dl Total Bilirubin 0.2 (0.2-1) mg/dl AST 15 (15-37) U/L ALT 21 (12-78) U/L Alkaline Phosphatase 95 (45-117) U/L Total Protein 7.8 (6.4-8.2) gm/dl Albumin 3.2 L (3.4-5.0) gm/dl Globulin 4.6 H (2.5-4.0) gm/dl Albumin/Globulin Ratio 0.7 L (0.9-2) Urine Color Red Urine Appearance Turbid A (Clear) Urine pH 6.0 (4.5-7.5) Ur Specific [place] 1.017 (1.000-1.030) Urine Protein 3+ H (Negative) Urine Glucose (UA) Trace H (Negative) Urine Ketones Negative (Negative) Urine Blood 3+ H (Negative) Urine Nitrite Positive A (Negative) Urine Bilirubin Negative (Negative) Urine Urobilinogen Negative (Negative) Ur Leukocyte Esterase 2+ H (Negative) Urine WBC (Auto) >30 H (0-5) /hpf Urine RBC (Auto) >30 H (0-4) /hpf U Hyaline Cast (Auto) 1-5 (0-5) /lpf U Epithel Cells (Auto) >30 H (0-5) /lpf Urine Bacteria (Auto) Negative (Negative) MDM Narrative Physical exam and history were performed. Nursing notes, EMR, and Medication List were personally reviewed. Patient appears to have left sided abdominal pain bring her to the ER. She did have a left ureteral stent placed yesterday by urology. IV access was established and labs were obtained. The patient was given IV Toradol and IV morphine for comfort. She was given IV Zofran as well as hydrated with normal saline. The patient blood work is as above and was reviewed. She does have an elevated white blood cell count of 17,000, however this could be stress-induced or vomiting induced. She does not have significant anemia or gross electrolyte imbalance. BUN is 21 and creatinine is 1.11. Glucose is 144. Transaminases are not diagnostic. Urine is with protein, blood, and nitrates. She reportedly is on Cipro and no antibiotics were provided in addition to this. The patient continued to complain of pain despite initial treatment. She was given 0.5 mg IV Dilaudid. Patient was reevaluated multiple times throughout the course of her stay. She did have some mild desaturation after the Dilaudid and was put on 2 L nasal cannula. Overall I discussed further options of care with patient including options of discharge home with additional pain medication worsening in the hospital. The patient is concerned that it took fairly large amount of pain medication to control her pain, and does not feel well for discharge home. I did discuss the case with the on-call hospitalist, Dr. Andino, who agreed to evaluate the patient here in the ER. Please see her dictation for further patient course, plan, and disposition. The chart was completed utilizing [employer] Speech Voice Recognition Software. Grammatical errors, random word insertions, pronoun errors, and incomplete sentences are an occasional consequence of this system due to software limitations, ambient noise, and hardware issues. Any formal questions or concerns about the content, text, or information contained within the body of this dictation should be directly addressed to the provider for clarification. . Impression & Plan Pain due to ureteral stent, Acute flank pain, Intractable pain Discharge Plan Visit Data Chief Complaint: Abdominal Pain Stated Complaint: PAIN IN LOWER ABD ED Provider: Yu Bustos ED Midlevel Provider: Gael Mendes Discharge Problem: Pain due to ureteral stent, Acute flank pain, Intractable pain Forms Stand Alone Forms: My [facility] [place] Prescriptions Prescriptions: No Action ciprofloxacin HCl 500 mg tablet 500 mg PO BID 3 Days Qty: 6 RF: 0 pantoprazole [Protonix] 40 mg tablet,delayed release (DR/EC) 40 mg PO DAILY PRN (Reason: Stomach Upset) RF: 0 tamsulosin 0.4 mg capsule 0.4 mg PO HS Qty: 30 RF: 0 phenazopyridine [Pyridium] 200 mg tablet 200 mg PO Q8H PRN (Reason: Pain) RF: 0 oxycodone-acetaminophen [Percocet] 5-325 mg tablet 1 tab PO Q8H PRN (Reason: Pain) RF: 0 oxybutynin chloride 5 mg tablet 5 mg PO BID PRN (Reason: Bladder Spasms) RF: 0 Referrals Referrals: PCP,NO [Primary Care Provider] - Discharge Problem: Pain due to ureteral stent Qualifiers: Encounter type: initial encounter Qualified Code(s): T83.84XA - Pain due to genitourinary prosthetic devices, implants and grafts, initial encounter
[2019-12-26] MEDS ORDERED: ONDANSETRON INJ 2 MG/ML 2 ML VIAL IV PRN (04:03)
[2019-12-26] MEDS ORDERED: ACETAMINOPHEN 325 MG TAB PO PRN (04:03)
[2019-12-26] MEDS ORDERED: PANTOprazole 40 MG TAB PO PRN (04:03)
[2019-12-26] MEDS: OXYCODONE/ACETAMINOPHEN 5mg/325mg TAB PO PRN ×2 (04:44→16:04)
[2019-12-26] MEDS: OXYBUTYNIN CHLORIDE 5 MG TAB PO PRN (08:22)
[2019-12-26] MEDS: KETOROLAC TROMETHAMINE 15 MG/ML VIAL IV PRN ×3 (08:22→23:21)
[2019-12-26 09:21] LABS: Hemoglobin 11.6 g/dL (12.0-16.0); Mean Corpuscular Hemoglobin 23.6 pg (25-34); Mean Corpuscular Hgb Conc 31.4 g/dL (32-36); Mean Corpuscular Volume 75.2 fL (80-100); Mean Platelet Volume 9.3 fL (7.4-10.4); Platelet Count 272 K/uL (130-400); RDW Coefficient of Variation 15.7 % (11.5-14.5); RDW Standard Deviation 43.4 fL (36.4-46.3); Red Blood Count 4.92 M/uL (4.2-5.4); White Blood Count 10.25 K/uL (4.8-10.8)
[2019-12-26] MEDS: CIPROFLOXACIN 500 MG TAB PO SCH ×2 (09:23→21:07)
[2019-12-26] MEDS: HYDROmorphone INJ 0.5 MG/0.5 ML SYR IV PRN ×2 (09:23→20:10)
[2019-12-26 09:53] LABS: BUN Creatinine Ratio 21.8 (10-20); Creatinine Clr Calc Pharmacy 122.2 ml/min; Est GFR (African American) 110.7; Est GFR (Non-African American) 95.5; Potassium 3.5 mmol/L (3.5-5.1)
[2019-12-26 10:02] LABS: Ferritin 51.7 ng/ml (8-388)
[2019-12-26 10:03] LABS: Estimated Average Glucose 143 mg/dl; Hemoglobin A1C 6.6 % (4.5-5.6)
[2019-12-26] MEDS: PHENAZOPYRIDINE HCL 200 MG TAB PO PRN ×2 (12:46→21:07)
[2019-12-26] MEDS: FERROUS SULFATE 325 MG TAB PO SCH ×2 (12:48→17:59)
[2019-12-26] MEDS ORDERED: GLUCOSE 10 TABS/TUBE PO PRN (14:53)
[2019-12-26] MEDS ORDERED: CARBOHYDRATES FOR HYPOGLYCEMIA PO PRN (14:53)
[2019-12-26] MEDS ORDERED: GLUCOSE 40% GEL 15 GM TUBE PO PRN (14:53)
[2019-12-26] MEDS ORDERED: DEXTROSE 50% 50 ML SYRINGE IV PRN (14:53)
[2019-12-26] MEDS ORDERED: GLUCAGON FOR INJ 1 MG VIAL SQ PRN (14:53)
[2019-12-26] MEDS ORDERED: SODIUM CHLORIDE 0.9% 1000ML 1,000 ML IV SCH (15:30)
[2019-12-26] MEDS ORDERED: FERROUS SULFATE 325 MG TAB PO SCH (17:00)
--- NOTE | 2019-12-26 17:23 | Hospitalist Progress Note ---
Date of Service December 26, 2019 Assessment & Plan (1) Flank pain: * s/p cystoscopy performed 12/[address] Ley. Pain had only been minimally improved with PO medication. * WBCs 17.5k on admission, down to 10.2k on repeat -- in setting of dehydration/stress?. UCx pending. * Continue pain control, antiemetics prn * Cipro continued for prophylaxis -- UA with 3+ protein, 3+ blood, + nitrtie, 2+ leuk est, >30WBC, >30epi * Continue oxybuytnin, flomax * Dry on exam and BUN/Cr elevated to 21.8 -- will order 1L NSS @80cc/hr * Lipase wnl 344 * Kpad ordered with improvement of pain * Urology consulted -- appreciate input * Cr stable at 0.8 * Monitor AM labs (2) GERD (gastroesophageal reflux disease): * Chronic. Stable * Continue Protonix (3) Diabetes mellitus: * New - may also contribute to abd discomfort/upset. Did have reports to polyphagia, polyuria, polydipsia prior to most recent procedure and nausea/pain * A1c 6.6 * Discussed diet/exercise, as patient would like to avoid initiating metformin at this time * family living educator consulted * Diabetic diet while inpatient * ISS with accuchecks * BSGs acceptable * Discussed with Dr. Shaw -- patient would benefit from low dose lisinopril 2.5mg, will start in AM as BP stable 139/90 currently (4) Iron deficiency anemia: * H/h 12.8/39.6 on admission, down to 11.6/37.0 however did receive 1L NSS * MCV low at 75 and appeared to be low on review of previous values * Iron panel c/w iron deficiency anemia -- iron low at 27, trans % sat 8. TIBC 290, transferrin 238, ferritin 51.7 * Initiated on ferrous sulfate 325mg BID * Will add miralax/colace to prevent further constipation (5) Constipation: * likely secondary to pain medications * miralax/colace added as above * continue to monitor * would obtain KUB if worsening abd pain (6) DVT prophylaxis: Low risk, SCDs added Admission and Anticipated Discharge Date Admission Date: December 26, 2019 Subjective COMMUNICATION/BRIDGE NOTE: Patient evaluated this afternoon. Decreased abdominal pain, located R flank/RUQ but does have occasional pains LUQ and epigastric region. Controlled on current medications and states she has required less pain control. She does note no BM since day prior to cysto, so that would be prior to 12/23. She endorses feeling fatigued, shortness of breath with activity over the past several months. Previously on iron supplementations but dealt with constipation and melena and had not continued. Discussed findings c/w iron deficiency anemia and likely related to fatigue and other symptoms and may improve with replacement. Discussed adding miralax and colace while ordering this to prevent further constipation. Also discussed dry mouth, increased thirst, polyphagia prior to recent nausea/lack of appetite secondary to pain following recent cysto. Discussed elevated A1c to 6.6 and technically diabetic. Would like to avoid metformin or other agents at this time and trial diet/exercise and repeat outpatient with her PCP in 3 months. Discussed given kidney disease and elevated BPs while inpatient and that she would likely benefit from low dose CHANTEL/ARB for renal protection. She notes she had been on labetalol in the past but had discontinued when BPs improved post- . She would like to speak with Dr. Shaw prior to any medication changes. Results & Data Results & Data ([facility]) Vital Signs (Past 12 Hours) Vital Signs Temp Pulse Resp BP Pulse Ox 12/26/19 07:52 36.6 C 89 18 151/93 H 96 Laboratory Results 12/26/19 12/26/19 12/26/19 Range/Units 12:24 09:09 09:09 WBC (4.8-10.8) K/uL RBC (4.2-5.4) M/uL Hgb (12.0-16.0) g/dL Hct (37-47) % MCV (80-100) fL MCH (25-34) pg MCHC (32-36) g/dL RDW Std Deviation (36.4-46.3) fL RDW Coeff of Amrit (11.5-14.5) % Plt Count (130-400) K/uL MPV (7.4-10.4) fL Immature Gran % (Auto) % Neut % (Auto) % Lymph % (Auto) % [place] % (Auto) % Eos % (Auto) % Baso % (Auto) % Neut # (Auto) (1.4-6.5) K/uL Lymph # (Auto) (1.2-3.4) K/uL [place] # (Auto) (0.11-0.59) K/uL Eos # (Auto) (0-0.5) K/uL Baso # (Auto) (0-0.2) K/uL Immature Gran # (Auto) (0.00-0.02) K/uL Sodium (136-145) mmol/L Potassium (3.5-5.1) mmol/L Chloride (98-107) mmol/L Carbon Dioxide (21-32) mmol/L Anion Gap (3-11) BUN (7-18) mg/dl Creatinine (0.6-1.2) mg/dl Est Cr Clr Drug Dosing ml/min Est GFR ( Amer) Est GFR (Non-Af Amer) BUN/Creatinine Ratio (10-20) Glucose (70-99) mg/dl POC Glucose 152 H (70-99) mg/dl Estimat Average Glucose 143 mg/dl Hemoglobin A1c 6.6 H (4.5-5.6) % Calcium (8.5-10.1) mg/dl Iron (35-150) mcg/dl TIBC (250-450) mcg/dl Transferrin (200-360) mg/dl Transferrin % Sat (15-50) % Ferritin (8-388) ng/ml Total Bilirubin (0.2-1) mg/dl AST (15-37) U/L ALT (12-78) U/L Alkaline Phosphatase (45-117) U/L Total Protein (6.4-8.2) gm/dl Albumin (3.4-5.0) gm/dl Globulin (2.5-4.0) gm/dl Albumin/Globulin Ratio (0.9-2) Lipase 344 (73-393) U/L Urine Color Urine Appearance (Clear) Urine pH (4.5-7.5) Ur Specific [place] (1.000-1.030) Urine Protein (Negative) Urine Glucose (UA) (Negative) Urine Ketones (Negative) Urine Blood (Negative) Urine Nitrite (Negative) Urine Bilirubin (Negative) Urine Urobilinogen (Negative) Ur Leukocyte Esterase (Negative) Urine WBC (Auto) (0-5) /hpf Urine RBC (Auto) (0-4) /hpf U Hyaline Cast (Auto) (0-5) /lpf U Epithel Cells (Auto) (0-5) /lpf Urine Bacteria (Auto) (Negative) 12/26/19 12/26/19 12/25/19 Range/Units 09:09 09:09 22:59 WBC 10.25 (4.8-10.8) K/uL RBC 4.92 (4.2-5.4) M/uL Hgb 11.6 L (12.0-16.0) g/dL Hct 37.0 (37-47) % MCV 75.2 L (80-100) fL MCH 23.6 L (25-34) pg MCHC 31.4 L (32-36) g/dL RDW Std Deviation 43.4 (36.4-46.3) fL RDW Coeff of Amrit 15.7 H (11.5-14.5) % Plt Count 272 (130-400) K/uL MPV 9.3 (7.4-10.4) fL Immature Gran % (Auto) % Neut % (Auto) % Lymph % (Auto) % [place] % (Auto) % Eos % (Auto) % Baso % (Auto) % Neut # (Auto) (1.4-6.5) K/uL Lymph # (Auto) (1.2-3.4) K/uL [place] # (Auto) (0.11-0.59) K/uL Eos # (Auto) (0-0.5) K/uL Baso # (Auto) (0-0.2) K/uL Immature Gran # (Auto) (0.00-0.02) K/uL Sodium 141 (136-145) mmol/L Potassium 3.5 (3.5-5.1) mmol/L Chloride 107 (98-107) mmol/L Carbon Dioxide 26 (21-32) mmol/L Anion Gap 8.0 (3-11) BUN 18 (7-18) mg/dl Creatinine 0.80 D (0.6-1.2) mg/dl Est Cr Clr Drug Dosing 122.2 ml/min Est GFR ( Amer) 110.7 Est GFR (Non-Af Amer) 95.5 BUN/Creatinine Ratio 21.8 H (10-20) Glucose 101 H (70-99) mg/dl POC Glucose (70-99) mg/dl Estimat Average Glucose mg/dl Hemoglobin A1c (4.5-5.6) % Calcium 9.0 (8.5-10.1) mg/dl Iron 27 L (35-150) mcg/dl TIBC 290 (250-450) mcg/dl Transferrin 238 (200-360) mg/dl Transferrin % Sat 8 L (15-50) % Ferritin 51.7 (8-388) ng/ml Total Bilirubin (0.2-1) mg/dl AST (15-37) U/L ALT (12-78) U/L Alkaline Phosphatase (45-117) U/L Total Protein (6.4-8.2) gm/dl Albumin (3.4-5.0) gm/dl Globulin (2.5-4.0) gm/dl Albumin/Globulin Ratio (0.9-2) Lipase (73-393) U/L Urine Color Red Urine Appearance Turbid A (Clear) Urine pH 6.0 (4.5-7.5) Ur Specific [place] 1.017 (1.000-1.030) Urine Protein 3+ H (Negative) Urine Glucose (UA) Trace H (Negative) Urine Ketones Negative (Negative) Urine Blood 3+ H (Negative) Urine Nitrite Positive A (Negative) Urine Bilirubin Negative (Negative) Urine Urobilinogen Negative (Negative) Ur Leukocyte Esterase 2+ H (Negative) Urine WBC (Auto) >30 H (0-5) /hpf Urine RBC (Auto) >30 H (0-4) /hpf U Hyaline Cast (Auto) 1-5 (0-5) /lpf U Epithel Cells (Auto) >30 H (0-5) /lpf Urine Bacteria (Auto) Negative (Negative) 12/25/19 12/25/19 Range/Units 22:34 22:34 WBC 17.52 H (4.8-10.8) K/uL RBC 5.26 (4.2-5.4) M/uL Hgb 12.8 (12.0-16.0) g/dL Hct 39.6 (37-47) % MCV 75.3 L (80-100) fL MCH 24.3 L (25-34) pg MCHC 32.3 (32-36) g/dL RDW Std Deviation 42.8 (36.4-46.3) fL RDW Coeff of Amrit 15.7 H (11.5-14.5) % Plt Count 345 (130-400) K/uL MPV 9.7 (7.4-10.4) fL Immature Gran % (Auto) 0.4 % Neut % (Auto) 86.7 % Lymph % (Auto) 6.5 % [place] % (Auto) 6.0 % Eos % (Auto) 0.3 % Baso % (Auto) 0.1 % Neut # (Auto) 15.19 H (1.4-6.5) K/uL Lymph # (Auto) 1.14 L (1.2-3.4) K/uL [place] # (Auto) 1.05 H (0.11-0.59) K/uL Eos # (Auto) 0.05 (0-0.5) K/uL Baso # (Auto) 0.02 (0-0.2) K/uL Immature Gran # (Auto) 0.07 H (0.00-0.02) K/uL Sodium 138 (136-145) mmol/L Potassium 3.8 (3.5-5.1) mmol/L Chloride 105 (98-107) mmol/L Carbon Dioxide 24 (21-32) mmol/L Anion Gap 9.0 (3-11) BUN 21 H (7-18) mg/dl Creatinine 1.11 (0.6-1.2) mg/dl Est Cr Clr Drug Dosing 89.0 ml/min Est GFR ( Amer) 74.5 Est GFR (Non-Af Amer) 64.3 BUN/Creatinine Ratio 18.6 (10-20) Glucose 144 H (70-99) mg/dl POC Glucose (70-99) mg/dl Estimat Average Glucose mg/dl Hemoglobin A1c (4.5-5.6) % Calcium 9.0 (8.5-10.1) mg/dl Iron (35-150) mcg/dl TIBC (250-450) mcg/dl Transferrin (200-360) mg/dl Transferrin % Sat (15-50) % Ferritin (8-388) ng/ml Total Bilirubin 0.2 (0.2-1) mg/dl AST 15 (15-37) U/L ALT 21 (12-78) U/L Alkaline Phosphatase 95 (45-117) U/L Total Protein 7.8 (6.4-8.2) gm/dl Albumin 3.2 L (3.4-5.0) gm/dl Globulin 4.6 H (2.5-4.0) gm/dl Albumin/Globulin Ratio 0.7 L (0.9-2) Lipase (73-393) U/L Urine Color Urine Appearance (Clear) Urine pH (4.5-7.5) Ur Specific [place] (1.000-1.030) Urine Protein (Negative) Urine Glucose (UA) (Negative) Urine Ketones (Negative) Urine Blood (Negative) Urine Nitrite (Negative) Urine Bilirubin (Negative) Urine Urobilinogen (Negative) Ur Leukocyte Esterase (Negative) Urine WBC (Auto) (0-5) /hpf Urine RBC (Auto) (0-4) /hpf U Hyaline Cast (Auto) (0-5) /lpf U Epithel Cells (Auto) (0-5) /lpf Urine Bacteria (Auto) (Negative) PG Care Time/CCT Total # of Minutes Spent Total Time Spent with Patient: Total time spent is greater than 50% in coordination of care (as documented) at patient's floor/unit and/or counseling patient: Coding Level of Care Code None Diagnoses Flank pain R10.9 GERD (gastroesophageal reflux disease) K21.9 Esophagitis presence: esophagitis presence not specified Diabetes mellitus E11.9 Iron deficiency anemia D50.9 Constipation K59.00 DVT prophylaxis Z29.9 (1) GERD (gastroesophageal reflux disease) Esophagitis presence: esophagitis presence not specified Qualified Code(s): K21.9 - Gastro-esophageal reflux disease without esophagitis
[2019-12-26] MEDS: POLYETHYLENE (MIRALAX) 17 GM PACK PO SCH (17:59)
[2019-12-26] MEDS: INSULIN ASPART 100 UNITS/ML 3 ML PEN SC SCH ×2 (18:12→22:44)
[2019-12-26] MEDS: TAMSULOSIN HCL 0.4 MG CAP PO SCH (21:07)
[2019-12-26] MEDS: DOCUSATE SODIUM 100 MG CAP PO SCH (21:07)
[2019-12-27] MEDS: HYDROmorphone INJ 0.5 MG/0.5 ML SYR IV PRN (00:48)
[2019-12-27 06:03] LABS: Hematocrit (blood only) 37.3 % (37-47); Hemoglobin 11.6 g/dL (12.0-16.0); Mean Corpuscular Hemoglobin 23.6 pg (25-34); Mean Corpuscular Hgb Conc 31.1 g/dL (32-36); Mean Corpuscular Volume 75.8 fL (80-100); Mean Platelet Volume 9.3 fL (7.4-10.4); Platelet Count 259 K/uL (130-400); RDW Coefficient of Variation 15.6 % (11.5-14.5); RDW Standard Deviation 43.2 fL (36.4-46.3); Red Blood Count 4.92 M/uL (4.2-5.4); White Blood Count 7.03 K/uL (4.8-10.8)
[2019-12-27 06:31] LABS: Albumin Level 2.8 gm/dl (3.4-5.0); BUN Creatinine Ratio 24.1 (10-20); Calcium 8.3 mg/dl (8.5-10.1); Creatinine Clr Calc Pharmacy 143.8 ml/min; Est GFR (African American) 131.3; Est GFR (Non-African American) 113.3; Potassium 3.5 mmol/L (3.5-5.1)
[2019-12-27] MEDS ORDERED: bisacodyL 5 MG TABEC PO ONE (06:39)
[2019-12-27 06:42] LABS: Albumin Globulin Ratio 0.7 (0.9-2); Bilirubin,Total 0.3 mg/dl (0.2-1); Globulin 3.9 gm/dl (2.5-4.0); Thyroid Stimulating Hormone 3.7 uIu/ml (0.300-4.500); Total Protein 6.7 gm/dl (6.4-8.2)
[2019-12-27] MEDS: DOCUSATE SODIUM 100 MG CAP PO SCH ×2 (08:54→18:09)
[2019-12-27] MEDS: FERROUS SULFATE 325 MG TAB PO SCH ×2 (08:54→18:09)
[2019-12-27] MEDS: CIPROFLOXACIN 500 MG TAB PO SCH ×2 (08:54→18:09)
[2019-12-27] MEDS: POLYETHYLENE (MIRALAX) 17 GM PACK PO SCH (08:54)
[2019-12-27] MEDS: INSULIN ASPART 100 UNITS/ML 3 ML PEN SC SCH ×2 (09:23→13:08)
[2019-12-27] MEDS: KETOROLAC TROMETHAMINE 15 MG/ML VIAL IV PRN ×2 (10:04→15:36)
--- NOTE | 2019-12-27 12:39 | Urology Consultation ---
Date of Consultation December 27, 2019 Assessment & Plan (1) Flank pain: Patient likely experiencing significant stent discomfort after procedure on Tuesday. Discussed different options. Discussed management discussed supportive care. Plan will be to try to get stent removed in the next week. We will need to schedule through office. Otherwise we will plan to continue with supportive care. No major abnormalities found on neurological examination. Appears the patient has a significant proteinuria causing cloudiness of the urine. Is following closely with the printing press machinist for other management and other options. At this point at 1 stent is removed we will continue to follow as needed. Call if any changes or issues. History of Present Illness Attending Physician: Lakhwinder Diaz MD History of Present Illness Patient status post ureteroscopy bilaterally with significant pain on the left side likely from stent. Patient had cystoscopy and ureteroscopy due to possible issues with obstruction. She has severe proteinuria with cloudy urine. Underwent procedure and on the left side there was some minor obstruction this was dilated a stent was left in place due to mild irritation. No considerable obstructions or other explanation for her significant urine issues. She is follows closely with printing press machinist who is by to see her. No other major changes or issues majority of pain discomfort appears to be related to stent discomfort. She has significant reflux with voiding which is cause some pain. Discussed this will resolve over time. Discussed plans for stent and plans to try to remove sooner rather than later. No severe fevers or other issues. Is being treated for possible UTI, discomfort, and ill feelings. Patient developed sudden onset of pain into flank going down and radiating into groin and back in waves comes and goes. Can be severe at times. Discussed and reviewed patient's family history for any history of issues, infections, and disease. Also, discussed patient's medical/surgery history especially related to any history of urinary issues or stone disease. Patient was admitted and is undergoing observation with broad spectrum IV antibiotics. Allergies Allergy/AdvReac Type Severity Reaction Status Date / Time No Known Allergies Allergy Verified 12/25/19 22:50 Home Medications Home Medications Medication Instructions Recorded Confirmed Type pantoprazole [Protonix] 40 mg PO DAILY PRN 12/11/19 12/25/19 History tamsulosin 0.4 mg PO HS #30 cap 12/24/19 12/25/19 Rx ciprofloxacin HCl 500 mg tablet 500 mg PO BID 3 Days #6 tab 12/25/19 12/25/19 Rx oxybutynin chloride 5 mg PO BID PRN 12/25/19 12/25/19 History oxycodone-acetaminophen [Percocet] 1 tab PO Q8H PRN 12/25/19 12/25/19 History phenazopyridine [Pyridium] 200 mg PO Q8H PRN 12/25/19 12/25/19 History Patient History Medical History Blood in urine found in u/a GERD (gastroesophageal reflux disease) Morbid obesity Proteinuria 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 Surgical History Hx of tubal ligation Hx of wisdom tooth extraction NO ANESTHESIA USED/ONLY NOVOCAINE Family History Father Family history of diabetes mellitus Brother Family history of diabetes mellitus Grandfather (Maternal) Family history of diabetes mellitus Social History Smoking Status: Former smoker Second Hand Exposure: No; Hx Alcohol Use: No Hx Substance Use: No Preferred Language: Hungarian Communication Ability: Effective Edge Stitcher Required: No Beliefs That Will Affect Care: [facility] marital status: Current Living Situation: Spouse Feels Safe at Home: Yes Assistive Devices: None Review of Systems Review of Systems: All systems reviewed & are unremarkable except as noted in HPI & below Physical Exam Physical Exam: General: Alert and oriented x 3 in no acute distress. Patient is well nourished and well kept. HEENT: Normocephalic Atraumatic. Inspection normal. Cranial Nerves 2-12 Grossly intact. Nares are clear. Neck is supple. Normal inspection of face. No rmal inspection of neck. Neurologic: No deficits on inspection. Baseline for motor function and sensory. Psychologic: Normal affect. Respiratory: Nonlabored. No use of accessory muscles. No tachypnea or dyspnea. Cardiovascular: No tachycardia Skin: [place] and Dry. No rashes or visible lesions. Extremities: Moving without issues. No motor deficits on inspection Lymphatics: No edema Abdomen: Soft Non-distended. No acites. No rebound or guarding. Results & Data ([facility]) Vital Signs (Past 12 Hours) Vital Signs Temp Pulse Pulse Resp BP Pulse Ox 12/27/19 07:53 80 12/27/19 07:40 36.5 C 101 H 18 139/90 97 PG Care Time/CCT Total # of Minutes Spent Total Time Spent with Patient: Total time spent is greater than 50% in coordination of care (as documented) at patient's floor/unit and/or counseling patient: Coding Level of Care Code 63336 Inpt Consult Level 5 Diagnoses Flank pain R10.9
[2019-12-27] MEDS: PHENAZOPYRIDINE HCL 200 MG TAB PO PRN (12:51)
[2019-12-27] MEDS: OXYBUTYNIN CHLORIDE 5 MG TAB PO PRN (12:51)
--- NOTE | 2019-12-27 15:11 | Discharge Summary ---
Date of Service December 27, 2019 Admission HPI Per Admitting Provider 34yo female with history of GERD s/p cystoscopy with stent placement performed by Dr. Ley of Urology yesterday presenting with severe flank pain. Pain is mostly on right flank with radiation to anterior abdomen. Associate with nausea and one episode of non-bloody/non-bilious vomiting. She denies fevers/chill/rigors. Took PO Percocet x 2 tabs at home with minimal relief. No additional complaints at this time ER Course: Dilaudid 0.5mg, Toradol 30mg, Morphne 4mg, Zofran 4mg, NSS x 1L Admission Exam Per Admitting Provider Physical Exam: General: patient resting comfortably, NAD, non-toxic in appearance, AA&O x 4 Skin: warm, dry, intact, no rashes or lesions HEENT: NC/AT, PERRL, EOMI, anicteric sclera, conjunctiva without injection, external ear normal to inspection and nontender, nares patent, moist mucus membranes, dentition intact, no oropharyngeal lesions, neck supple, trachea midline, no LAD, no thyromegaly, no JVD Heart: +S1/S2, regular, no m/r/g Lungs: equal air entry bilaterally, no rales/rhonchi/wheezes Abd: +BS, soft, mildly tender in lower abdomen, no rebound/guarding/peritoneal signs, ND, no masses/organomegaly/ascites Ext: warm, 2+ pulses in UE/LE bilaterally, no clubbing/cyanosis or edema Neuro: nonfocal, patient AA&O x 4, speech intact, no facial droop, moving all extremities on command with equal strength 5/5 Principal Diagnosis Intractable Flank Pain due to stent irritation Discharge Exam Constitutional WD/WN, vitals as above + obese; no acute distress Eyes + anicteric sclerae; no eyelid abnormality ENMT Ears: no hearing impairment Nose: no external nose abnormality Neck normal visual inspection Respiratory normal respiratory effort, lungs clear to auscultation Auscultation: + diminished lung sounds; no crackles, no rales and no wheezes Cardiovascular RRR, no murmur, no edema Gastrointestinal (Abdomen) Inspection/Auscultation: abdomen normal to inspection and normal bowel sounds Percussion/Palpation: + abdomen tender (reported minimal tenderness to palpation diffusely) and abdomen soft Musculoskeletal no cyanosis or clubbing, extremities motor strength 5/5 Skin no rashes, warm and dry Neurologic PERRL, EOMI, accommodation nl, no face palsy, no dysarthria Psychiatric Orientation: alert and oriented x 3 Lymphatic no cervical or axillary lymphadenopathy Discharge Data Allergies Allergy/AdvReac Type Severity Reaction Status Date / Time No Known Allergies Allergy Verified 12/25/19 22:50 Consultations 12/26/19 02:12 ED Decision to Admit Stat 12/26/19 09:04 Consult Urology Routine Diabetes Follow up Diabetes Follow-up Needed for Newly Diagnosed Diabetes Hospital Course (1) Flank pain: s/p cystoscopy performed 12/[address] eLy. Pain had only been minimally improved with PO medication outpatient WBCs elevated on admission, normalized to 7.0k prior to discharge in setting of dehydration/stress/stent irritation/possible UTI (as urine culture with pin- point growth, re-incubating -- previous culture pansensitive except to nitro and was placed on cipro on admission and sent with course to complete 7 day treatment as UA with 3+ protein, 3+ blood, + nitrite, 2+ leuk est, >30 WBC, >30 epi Supportive care with IVF, pain control with IV Dilaudid and toradol while inpatient and sent with short prescription for oxycodone to utilize as needed. K-pad with relief. Urology was consulted -- plan for removal of stent within the week at follow-up. Cr remained stable, 0.68 prior to discharge. Lipase was wnl at 344. TSH wnl. Oxybuytnin, flomax continued (2) GERD (gastroesophageal reflux disease): Chronic. Stable Continued Protonix (3) Diabetes mellitus: New, A1c 6.6- may also contribute to abd discomfort/upset. Did have reports to polyphagia, polyuria, polydipsia prior to most recent procedure and nausea/pain Discussed diet/exercise, as patient would like to avoid initiating metformin at this time. Set up with PCP at discharge and recommended repeat A1c to see if diet/exercise effective prior to starting therapy although she may get added weight loss benefit Started and continued Lisinopril 2.5mg daily for renal protection and elevated BPs after discussion with her Steam Plant Operator Dr. Shaw. BPs improved. Patient with with DM as well and going to see education general manager next week which hopefully help Follow up with PCP recommended (4) Iron deficiency anemia: Found to be anemic. Iron panel c/w iron deficiency anemia with iron low at 27, trans % sat 8. TIBC 290, transferrin 238, ferritin 51.7. Started and continued on oral supplementation and instructed to utilize miralax/colace as needed for constipation. If unable to tolerate oral may want to discuss IV transfusions after discussion with PCP (5) Constipation: secondary to pain medications TSH wnl Stool softeners as above Continued to pass gas, +BS Encouraged ambulation and only utilizing pain medications as needed (6) DVT prophylaxis: Low risk, SCDs while inpatient Discharged home with cipro, zofran, pain medication, lisinopril with . Patient requested copies of most recent images and chart prior as requested. Total Time Total Time Spent Total Time Spent (In Minutes): 95 Discharge Plan Discharge Items Patient Disposition: Home - Self-Care Reason For Visit: FLANK PAIN Discharge Diagnosis: Flank Pain from Stent Irriation Goals: You have been hospitalized for an acute medical problem. During your stay at [facility], we have made an effort to correct the problem that brought you to the hospital while keeping you as comfortable as possible. Medications were used to bring your condition under control and your discharge instructions will include directions for any medications you should take after leaving the hospital. Please make sure you see your Primary Care Provider as part of your follow up plan. Activity: Resume your previous activity Non-emergency contact: Primary Care Provider and Urologist Call non-emergency contact if: you have any medication questions, your symptoms worsen and your pain is not controlled Follow-up/Referrals: Skyler Ley DO [Physician] - 01/09/20 12:40 pm () Emiliana Raza MD [Primary Care Provider] - 01/03/20 1:20 pm (A new PCP/hospital follow up has been made for you with Dr. Raza on Jan.02 at 1:20pm.) Diet: Carb Consistent or DM2 and Heart Healthy Addtl Attending Provider Instructions: You have been hospitalized for flank pain following cystoscopy and stent placement with Dr. Bergeron. You were treated with antibiotics, IV fluids, and pain medication and are being sent with prescription for the following: * Oxycodone 5mg by mouth every eight hours as needed for breakthrough pain. Please utilize Tylenol for non-severe pain and please avoid Ibuprofen/Motrin/etc to prevent bleeding issues. * Zofran 4mg under the tongue every 4-6 hours as needed for nausea Your A1c was checked and resulted as 6.6, which is technically diabetic. You were seen by our database development project manager and recommend following up with nutrition with your for dietary changes and may want to have this lab value repeated as an outpatient in 3 months to see if it has gone down or continues to increase. It is very important to keep this well controlled given your kidney issues and you were also started on Lisinopril 2.5mg by mouth daily to help with blood pressure as well as renal (kidney) protection. You should consider over the counter stool softeners such as miralax or Colace to help with any constipation as you have also been found to be iron deficient and have been started on supplementation for that as well, as discussed. If you develop issues with oral supplementation, you may want to discuss with your primary care provider about getting set up for iron transfusions as an outpatient. You have been set up with a new primary care provider and should follow up with her to monitor your progress and continue to follow your care/management of diabetes/blood pressure/general screenings. You will need follow up with Dr. Ley for stent removal, and they are expecting to have this removed in 1 week and an appointment is being made for follow-up. --You were started on ciprofloxacin (Cipro) as an antibiotic for urinary tract and will continue for the next 5 days as follows: * CIPROFLOXACIN 500mg BY MOUTH TWICE DAILY Please follow up with Dr. Shaw as previously scheduled or as needed for further surveillance. Copies of your medical record have been provided to you prior to discharge. Please return to the emergency department with any worsening pain, fever, inability to urinate, or for any other symptoms that are concerning for you. It has been a pleasure being a part of the medical team providing for you while you have been in the hospital. Take care! Pending Studies at Discharge: No Stand-Alone Forms: [facility], Work/School Release (Inpt) Medications and DC Order Prescriptions: New polyethylene glycol 3350 [Miralax] 17 gram Powder In Packet 17 g PO DAILY 30 Days RF: 0 docusate sodium 100 mg Capsule 100 mg PO BID 30 Days Qty: 60 RF: 0 ferrous sulfate 325 mg (65 mg iron) Tablet,Delayed Release (Dr/Ec) 325 mg PO BIDM Qty: 60 RF: 0 lisinopril 2.5 mg Tablet 2.5 mg PO QAM Qty: 30 RF: 0 ondansetron 4 mg film 4 mg PO Q8H PRN (Reason: nausea and vomiting) Qty: 10 RF: 0 oxycodone-acetaminophen 5-325 mg tablet 1 tab PO Q6H PRN (Reason: pain) Qty: 8 RF: 0 Continued ciprofloxacin HCl 500 mg tablet 500 mg PO BID 3 Days Qty: 6 RF: 0 pantoprazole [Protonix] 40 mg tablet,delayed release (DR/EC) 40 mg PO DAILY PRN (Reason: Stomach Upset) RF: 0 tamsulosin 0.4 mg capsule 0.4 mg PO HS Qty: 30 RF: 0 phenazopyridine [Pyridium] 200 mg tablet 200 mg PO Q8H PRN (Reason: Pain) RF: 0 oxybutynin chloride 5 mg tablet 5 mg PO BID PRN (Reason: Bladder Spasms) RF: 0 Discontinued oxycodone-acetaminophen [Percocet] 5-325 mg tablet 1 tab PO Q8H PRN (Reason: Pain) RF: 0 Discharge Orders: Discharge Order (Routine); Ordered 12/27/19 Ordered By: Sasha Mukherjee/Other Patient Handouts: A1C Admission Data Admit Date/Time: 12/26/19 03:08 Attending Provider: Lakhwinder Diaz Admit Provider: Radha Andino Primary Care Provider: Emiliana Raza Other Providers: Radha Andino ; Skyler Ley Other Interventions: Discharge Summary Assessment (RN) Last Done: 12/27/19 16:02 Coding Level of Care Code D/C Day Management >30 mins Diagnoses Flank pain R10.9 GERD (gastroesophageal reflux disease) K21.9 Esophagitis presence: esophagitis presence not specified Diabetes mellitus E11.9 Iron deficiency anemia D50.9 Constipation K59.00 DVT prophylaxis Z29.9
[2019-12-27] MEDS: OXYCODONE/ACETAMINOPHEN 5mg/325mg TAB PO PRN (15:36)
[2019-12-27] MEDS: TAMSULOSIN HCL 0.4 MG CAP PO SCH (18:09)
[2019-12-27] MEDS ORDERED: PERCOCET 5/325MG HOMEPACK PO ONE (18:45)
== END 2019-12-27 19:02 | disposition home or self-care (01) ==
LOC: ED 21:46 → 3E 21:46 → SUATTDRO 12-26 03:08 → 3E 12-26 03:34

== ENCOUNTER 2020-01-01 22:39 | Observation (INO) ==
[2020-01-01] MEDS ORDERED: ONDANSETRON INJ 2 MG/ML 2 ML VIAL IV STA (22:54)
[2020-01-01] MEDS ORDERED: HYDROmorphone INJ 1 MG/ML SYRINGE IV PRN (22:54)
[2020-01-01] MEDS ORDERED: KETOROLAC 30 MG/ML VIAL IV ONE (22:54)
[2020-01-01] MEDS ORDERED: SODIUM CHLORIDE 0.9% 1000ML 1,000 ML IV ONE (22:55)
--- NOTE | 2020-01-01 23:06 | Emergency Department Note ---
History of Present Illness General Chief complaint: Abdominal Pain Stated complaint: POST STENT REMOVAL, FLANK/ABD PAIN Time Seen by Provider: 01/01/20 22:50 Source: patient, RN notes reviewed and old records reviewed Mode of arrival: ambulatory Limitations: no limitations History of Present Illness Provider complaint: left sided flank pain Onset (ago): hour(s) 10 Location: back Radiation: flank Severity: severe Pain Consistency: + intermittent Maximum Pain Intensity: 9 Current Pain Intensity: 9 Quality: + aching Relieved By: + immobilization Exacerbated By: + movement Associated symptoms: + denies other symptoms; no chest pain, no fever/chills, no headaches, no nausea/vomiting and no shortness of breath Treatments prior to arrival: other (oxycodone) This is a 34-year-old female who presents emergency department complaining of left-sided flank pain. The patient reports she had a stent removed from the left side today. She reports since that time the pain has been consistently building. She reports she has been making urine since the stent was removed. She has been taking oxycodone without relief of the pain. She describes the pain as a burning sensation. She reports movement makes the pain worse however nothing makes the pain better. Home Medications Home Medications Medication Instructions Recorded Confirmed Type pantoprazole [Protonix] 40 mg PO DAILY PRN 12/11/19 01/01/20 History tamsulosin 0.4 mg PO HS #30 cap 12/24/19 01/01/20 Rx ciprofloxacin HCl 500 mg tablet 500 mg PO BID 3 Days #6 tab 12/25/19 01/01/20 Rx oxybutynin chloride 5 mg PO BID PRN 12/25/19 01/01/20 History docusate sodium 100 mg PO BID 30 Days #60 cap 12/27/19 01/01/20 Rx ferrous sulfate 325 mg PO BIDM #60 tab 12/27/19 01/01/20 Rx lisinopril 2.5 mg PO QAM #30 tab 12/27/19 01/01/20 Rx ondansetron 4 mg PO Q8H PRN #10 ea 12/27/19 01/01/20 Rx polyethylene glycol 3350 [Miralax] 17 g PO DAILY 30 Days ea 12/27/19 01/01/20 Rx oxycodone-acetaminophen 5 mg-325 1 tab PO Q6H PRN #7 tab 12/31/19 01/01/20 Rx mg tablet phenazopyridine 200 mg tablet 200 mg PO Q8H PRN #7 tab 12/31/19 01/01/20 Rx Allergies Allergy/AdvReac Type Severity Reaction Status Date / Time No Known Allergies Allergy Verified 01/01/20 10:59 Past Med/Surg History Medical History (Updated 01/04/20 @ 00:58 by Lan Weinstein MD) Acute flank pain Blood in urine found in u/a GERD (gastroesophageal reflux disease) Intractable pain Morbid obesity Proteinuria 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 Beliefs That Will Affect Care: None marital status: Current Living Situation: Family Other Information That Helps Us Care for You: No Feels Safe at Home: Yes Safety Concerns: Feels Safe At This Time Assistive Devices: None Review of Systems A total of 10 systems reviewed and were otherwise negative Physical Exam Vital Signs Vital Signs - 24 hr 01/01/20 22:45 01/02/20 00:40 Temperature 36.9 C Temperature Source Oral Pulse Rate 97 H 84 Respiratory Rate 20 19 Respiratory Effort / Characteristics Non-Labored Spontaneous Respiratory Depth Normal Blood Pressure 131/93 129/76 Blood Pressure Mean 105 97 Blood Pressure Position Sitting Pulse Oximetry 96 96 Oxygen Delivery Method Room Air Sepsis Recent Fever Within 48 Hours No Sepsis New/Unexplained Change in Mental Status N/A Sepsis Action Taken by Nursing No Action Required VITAL SIGNS - Vital signs and nursing notes were reviewed. GENERAL - 34-year-old female appearing extremely uncomfortable in moderate distress. Communicates well with provider and answers questions appropriately. SKIN - Without rashes. HEAD - NC/AT. EYES - PERRL with EOMI bilaterally. Sclera anicteric. Palpebral conjunctiva pink and moist with no injection noted. EARS - No deformities of external structures noted on gross examination bilaterally. No pain elicited with palpation of the tragus bilaterally. External auditory canals without discharge or otorrhea. Tympanic membranes pearly mcgill without retraction or bulging. No fluid or purulent material visualized behind the TM. Handle of malleus, umbo, cone of light, pars tensa/flaccid all easily visualized. NOSE - Midline and without cyanosis. No epistaxis or purulent drainage noted. Septum midline without deviation or septal hematoma noted. MOUTH/OROPHARYNX - Without perioral cyanosis. Buccal mucosa pink and moist and without leukoplakia. Tongue midline with equal elevation of palate bilaterally. No tonsillar hypertrophy, erythema, or exudates noted. dentition noted. NECK - Neck with FROM. Supple to palpation. lymphadenopathy noted. No nuchal rigidity. LUNGS - Chest wall symmetric without accessory muscle use, intercostals retractions, or central cyanosis. Normal vesicular breath sounds CTA B/L. No wheezes, rales, or rhonchi appreciated. CARDIAC - RRR with S1/S2. No murmur, rubs, or gallops appreciated. ABDOMEN - Abdominal contour without pulsations or visible masses. BS normoactive all four quadrants. No tenderness, palpable masses, hepatosplenomegaly, or ascites noted. EXTREMITIES - No clubbing or peripheral cyanosis. No pretibial edema present. +3/5 radial, posterior tibial, and dorsalis pedis pulses palpated throughout. +5/5 strength noted in UE/LE bilaterally. NEUROLOGIC - Cranial nerves II through XII grossly intact. Sensory intact to light touch throughout. Patellar reflexes +2/4. PSYCH - A&Ox3 and cooperates fully with examiner. Pt is very pleasant and interacts well with examiner. Course Administered Medications Acetaminophen (Acetaminophen 325 Mg Tab) 650 mg PO Q4H PRN PRN Reason: Pain Stop: 02/01/20 21:02 Last Admin: 01/03/20 23:27 Dose: 650 mg Documented by: [id number] Admin: 01/03/20 16:04 Dose: 650 mg Documented by: [id number] Docusate Sodium (Docusate Sodium 100 Mg Cap) 100 mg PO BID LIZ Stop: 02/01/20 20:59 Last Admin: 01/03/20 20:46 Dose: 100 mg Documented by: [id number] Admin: 01/03/20 08:47 Dose: 100 mg Documented by: [id number] Admin: 01/02/20 20:41 Dose: 100 mg Documented by: [id number] Ferrous Sulfate (Ferrous Sulfate 325 Mg Tab) 325 mg PO BIDM [facility] Stop: 02/01/20 16:59 Last Admin: 01/03/20 18:05 Dose: 325 mg Documented by: [id number] Admin: 01/03/20 08:48 Dose: 325 mg Documented by: [id number] Admin: 01/02/20 16:59 Dose: 325 mg Documented by: [id number] Sodium Chloride (Nss 1000ml) 1,000 mls @ 80 mls/hr IV .[id number] [facility] Stop: 02/01/20 03:31 Last Admin: 01/03/20 16:04 Dose: 80 mls/hr Documented by: [id number] Infusion: 01/03/20 16:04 Dose: 80 mls/hr Documented by: [id number] Infusion: 01/03/20 06:27 Dose: 80 mls/hr Documented by: [id number] Admin: 01/03/20 04:23 Dose: 80 mls/hr Documented by: [id number] Infusion: 01/03/20 04:05 Dose: 80 mls/hr Documented by: [id number] Admin: 01/02/20 15:35 Dose: 80 mls/hr Documented by: [id number] Infusion: 01/02/20 15:35 Dose: 80 mls/hr Documented by: [id number] Infusion: 01/02/20 08:23 Dose: 80 mls/hr Documented by: [id number] Infusion: 01/02/20 04:26 Dose: 0 mls/hr Documented by: [id number] Admin: 01/02/20 04:26 Dose: 80 mls/hr Documented by: [id number] Lisinopril (Lisinopril 2.5 Mg Tab) 2.5 mg PO QAM [facility] Stop: 02/02/20 08:59 Last Admin: 01/03/20 08:47 Dose: 2.5 mg Documented by: [id number] Oxycodone HCl (Oxycodone Hcl Ir 5 Mg Tab (Immediate Release)) 5 - 10 mg PO Q4H PRN PRN Reason: Pain Stop: 01/16/20 12:12 Last Admin: 01/03/20 23:26 Dose: 10 mg Documented by: [id number] Admin: 01/03/20 16:03 Dose: 10 mg Documented by: [id number] Admin: 01/03/20 11:24 Dose: 10 mg Documented by: [id number] Admin: 01/03/20 06:10 Dose: 10 mg Documented by: [id number] Admin: 01/02/20 23:55 Dose: 10 mg Documented by: [id number] Admin: 01/02/20 18:43 Dose: 5 mg Documented by: [id number] Admin: 01/02/20 12:24 Dose: 5 mg Documented by: [id number] Phenazopyridine HCl (Phenazopyridine Hcl 200 Mg Tab) 200 mg PO Q8H PRN PRN Reason: Pain Stop: 02/01/20 15:38 Last Admin: 01/03/20 09:26 Dose: 200 mg Documented by: [id number] Polyethylene Glycol (Polyethylene (Miralax) 17 Gm Pack) 17 gm PO DAILY LIZ Stop: 02/02/20 08:59 Last Admin: 01/03/20 08:47 Dose: 17 gm Documented by: [id number] Tamsulosin HCl (Tamsulosin Hcl 0.4 Mg Cap) 0.4 mg PO HS LIZ Stop: 02/01/20 20:59 Last Admin: 01/03/20 20:46 Dose: 0.4 mg Documented by: [id number] Admin: 01/02/20 20:41 Dose: 0.4 mg Documented by: [id number] Discontinued Medications Al Hydrox/Mg Hydrox/Simethicone (Gi Cocktail Ed Use) 1 dose PO ONE ONE Stop: 01/02/20 01:59 Last Admin: 01/02/20 06:28 Dose: Not Given Documented by: [id number] Al Hydrox/Mg Hydrox/Simethicone (Gi Cocktail Ed Use) Confirm Administered Dose 1 dose PO .STK-MED ONE Stop: 01/02/20 02:02 Last Admin: 01/02/20 06:28 Dose: Not Given Documented by: [id number] Famotidine (Famotidine 40 Mg Tablet) 40 mg PO NOW ONE Stop: 01/02/20 01:59 Last Admin: 01/02/20 06:28 Dose: Not Given Documented by: [id number] Famotidine (Famotidine 20mg/5ml Iv Push) Confirm Administered Dose 20 mg IV .STK-MED ONE Stop: 01/02/20 02:02 Last Admin: 01/02/20 06:28 Dose: Not Given Documented by: [id number] Hydromorphone HCl (Hydromorphone Inj 1 Mg/Ml Syringe) 1 mg IV Q15M PRN PRN Reason: Pain Stop: 01/15/20 22:53 Last Admin: 01/01/20 23:06 Dose: 1 mg Documented by: [id number] Sodium Chloride (Nss 1000ml) 1,000 mls @ 999 mls/hr IV .Q1H1M ONE Stop: 01/01/20 23:55 Last Infusion: 01/02/20 00:37 Dose: 0 mls/hr Documented by: [id number] Admin: 01/01/20 23:06 Dose: 999 mls/hr Documented by: [id number] Ceftriaxone Sodium (Rocephin) 2,000 mg in 70 mls @ 140 mls/hr IV NOW STA Stop: 01/02/20 00:05 Last Infusion: 01/02/20 00:37 Dose: 0 mls/hr Documented by: [id number] Admin: 01/02/20 00:02 Dose: 140 mls/hr Documented by: [id number] Ceftriaxone Sodium 2,000 mg/ (Dextrose) 70 mls @ 100 mls/hr IV Q24H [facility]; Protocol Stop: 01/12/20 19:59 Last Admin: 01/03/20 20:48 Dose: Not Given Documented by: [id number] Infusion: 01/02/20 21:53 Dose: 0 mls/hr Documented by: [id number] Admin: 01/02/20 20:40 Dose: 100 mls/hr Documented by: [id number] Ioversol (Ioversol 100ml) 100 ml IV ONCE ONE Stop: 01/02/20 01:38 Last Admin: 01/02/20 01:37 Dose: 92 ml Documented by: [id number] Ketorolac Tromethamine (Ketorolac 30 Mg/Ml Vial) 30 mg IV NOW ONE Stop: 01/01/20 22:55 Last Admin: 01/01/20 23:06 Dose: 30 mg Documented by: [id number] Ondansetron HCl (Ondansetron Inj 2 Mg/Ml 2 Ml Vial) 4 mg IV NOW STA Stop: 01/01/20 22:55 Last Admin: 01/01/20 23:06 Dose: 4 mg Documented by: [id number] Sucralfate (Sucralfate 1 Gm Tab) 1 gm PO NOW STA Stop: 01/02/20 01:59 Last Admin: 01/02/20 06:28 Dose: Not Given Documented by: [id number] Sucralfate (Sucralfate 1 Gm/10 Ml Udc) Confirm Administered Dose 1 gm .ROUTE .STK-MED ONE Stop: 01/02/20 02:02 Last Admin: 01/02/20 06:28 Dose: Not Given Documented by: [id number] Medical Decision Making Differential Diagnosis Appendicitis, ovarian cyst, ovarian torsion, ectopic , TOA, PID, infections, diverticulitis, UTI, obstruction, mesenteric ischemia, aortic pathology, inflammatory bowel disease, renal colic, PUD, pancreatitis, biliary pathology, hernia, volvulus, constipation, as well as other pathologies. Medical Records Attestation: I reviewed the patient's medical records. Home Medications Current Medication List: was personally reviewed by me Laboratory Data Attestation: I reviewed the patient's lab results. Result diagrams: 01/03/20 07:23 01/03/20 07:23 Lab Results 01/01/20 01/01/20 01/01/20 Range/Units 23:09 23:09 23:09 WBC 12.98 H (4.8-10.8) K/uL RBC 5.18 (4.2-5.4) M/uL Hgb 12.5 (12.0-16.0) g/dL Hct 39.6 (37-47) % MCV 76.4 L (80-100) fL MCH 24.1 L (25-34) pg MCHC 31.6 L (32-36) g/dL RDW Std Deviation 43.3 (36.4-46.3) fL RDW Coeff of Amrit 15.6 H (11.5-14.5) % Plt Count 346 (130-400) K/uL MPV 9.7 (7.4-10.4) fL Immature Gran % (Auto) 0.3 % Neut % (Auto) 76.5 % Lymph % (Auto) 12.9 % [place] % (Auto) 7.6 % Eos % (Auto) 2.5 % Baso % (Auto) 0.2 % Neut # (Auto) 9.93 H (1.4-6.5) K/uL Lymph # (Auto) 1.68 (1.2-3.4) K/uL [place] # (Auto) 0.99 H (0.11-0.59) K/uL Eos # (Auto) 0.32 (0-0.5) K/uL Baso # (Auto) 0.02 (0-0.2) K/uL Immature Gran # (Auto) 0.04 H (0.00-0.02) K/uL Sodium 138 (136-145) mmol/L Potassium 3.8 (3.5-5.1) mmol/L Chloride 106 (98-107) mmol/L Carbon Dioxide 26 (21-32) mmol/L Anion Gap 6.0 (3-11) BUN 14 (7-18) mg/dl Creatinine 1.00 (0.6-1.2) mg/dl Est Cr Clr Drug Dosing 92.2 ml/min Est GFR ( Amer) 84.5 Est GFR (Non-Af Amer) 72.9 BUN/Creatinine Ratio 14.5 (10-20) Glucose 105 H (70-99) mg/dl Calcium 10.0 (8.5-10.1) mg/dl Total Bilirubin 0.3 (0.2-1) mg/dl AST 13 L (15-37) U/L ALT 27 (12-78) U/L Alkaline Phosphatase 92 (45-117) U/L Total Protein 7.9 (6.4-8.2) gm/dl Albumin 3.4 (3.4-5.0) gm/dl Globulin 4.5 H (2.5-4.0) gm/dl Albumin/Globulin Ratio 0.8 L (0.9-2) Lipase 96 (73-393) U/L Urine Color [place] Urine Appearance Cloudy A (Clear) Urine pH (4.5-7.5) Ur Specific [place] 1.020 (1.000-1.060) Urine Protein Positive H (Negative) Urine Glucose (UA) (Negative) Urine Ketones (Negative) Urine Blood (Negative) Urine Nitrite (Negative) Urine Bilirubin (Negative) Urine Urobilinogen (Negative) Ur Leukocyte Esterase (Negative) Urine RBC 10-30 H (0-4) /hpf Urine WBC 10-30 H (0-5) /hpf Ur Epithelial Cells >30 H (0-5) /lpf Urine Bacteria 1+ H (Negative) Urine Mucus Present A (None Prsent) Urine Test (Negative) Blood Type Antibody Screen 01/01/20 01/02/20 Range/Units 23:09 01:39 WBC (4.8-10.8) K/uL RBC (4.2-5.4) M/uL Hgb (12.0-16.0) g/dL Hct (37-47) % MCV (80-100) fL MCH (25-34) pg MCHC (32-36) g/dL RDW Std Deviation (36.4-46.3) fL RDW Coeff of Amrit (11.5-14.5) % Plt Count (130-400) K/uL MPV (7.4-10.4) fL Immature Gran % (Auto) % Neut % (Auto) % Lymph % (Auto) % [place] % (Auto) % Eos % (Auto) % Baso % (Auto) % Neut # (Auto) (1.4-6.5) K/uL Lymph # (Auto) (1.2-3.4) K/uL [place] # (Auto) (0.11-0.59) K/uL Eos # (Auto) (0-0.5) K/uL Baso # (Auto) (0-0.2) K/uL Immature Gran # (Auto) (0.00-0.02) K/uL Sodium (136-145) mmol/L Potassium (3.5-5.1) mmol/L Chloride (98-107) mmol/L Carbon Dioxide (21-32) mmol/L Anion Gap (3-11) BUN (7-18) mg/dl Creatinine (0.6-1.2) mg/dl Est Cr Clr Drug Dosing ml/min Est GFR ( Amer) Est GFR (Non-Af Amer) BUN/Creatinine Ratio (10-20) Glucose (70-99) mg/dl Calcium (8.5-10.1) mg/dl Total Bilirubin (0.2-1) mg/dl AST (15-37) U/L ALT (12-78) U/L Alkaline Phosphatase (45-117) U/L Total Protein (6.4-8.2) gm/dl Albumin (3.4-5.0) gm/dl Globulin (2.5-4.0) gm/dl Albumin/Globulin Ratio (0.9-2) Lipase (73-393) U/L Urine Color Urine Appearance (Clear) Urine pH (4.5-7.5) Ur Specific [place] (1.000-1.060) Urine Protein (Negative) Urine Glucose (UA) (Negative) Urine Ketones (Negative) Urine Blood (Negative) Urine Nitrite (Negative) Urine Bilirubin (Negative) Urine Urobilinogen (Negative) Ur Leukocyte Esterase (Negative) Urine RBC (0-4) /hpf Urine WBC (0-5) /hpf Ur Epithelial Cells (0-5) /lpf Urine Bacteria (Negative) Urine Mucus (None Prsent) Urine Test Negative (Negative) Blood Type A Positive Antibody Screen NEGATIVE Imaging Data Attestation: I personally reviewed and interpreted this imaging study as follows: My Impression: A 1 view KUB was interpreted by me shows no evidence of free air or obstruction. Radiologist's Impression: Ultrasound renal: Left kidney measures 13.5 cm. No hydronephrosis. Subcapsular collection measuring 3.3 x 5.1 x 0.8 cm possibly a subscapular hematoma. Right kidney measures 13.3 cm no hydronephrosis. Decompressed urinary bladder, limiting evaluation. Ureteral jets are not visual ized during the course of exam. Small region of shadowing in the superior bladder, possibly intraluminal gas related to recent stent removal. MDM Narrative Patient was seen and evaluated as above in room B4. Review was performed of nursing notes and vital signs. I did review pertinent previous visits and patient history. After obtaining a thorough history and physical examination the above work up was performed. This is a 34-year-old female who presents emergency department complaining of left-sided flank pain. The patient has what appears to be a subcapsular hematoma on ultrasound confirmed by CAT scan of the abdomen and pelvis. Patient was given Dilaudid here for her pain. Her her met hemoglobin here is stable at 12.5. She is not . I did discuss the case with the urologist on-call who asked that the patient be admitted to the medicine service. Patient was started on IV antibiotics for her urine. Patient is in agreement with the treatment plan. 84 An order was placed for continuous cardiac monitoring. The monitor shows a rate of 84 with NS rhythm. The patient was evaluated during the global COVID-19 pandemic, and that diagnosis was suspected/considered upon their initial presentation. Their evaluation, treatment and testing was consistent with current guidelines for patients who present with complaints or symptoms that may be related to COVID- 19. Impression & Plan Acute right flank pain, Hematoma Discharge Plan Visit Data Chief Complaint: Abdominal Pain Stated Complaint: POST STENT REMOVAL, FLANK/ABD PAIN ED Provider: Lan Weinstein Discharge Problem: Acute right flank pain, Hematoma Patient Disposition: Admitted As Inpatient Discharge Instructions Interventions: ED Discharge Assessment Last Done: 01/02/20 03:49
[2020-01-01 23:23] LABS: Basophils # (auto) 0.02 K/uL (0-0.2); Basophils % (auto) 0.2 %; Eosinophils # (auto) 0.32 K/uL (0-0.5); Eosinophils % (auto) 2.5 %; Hematocrit (blood only) 39.6 % (37-47); Hemoglobin 12.5 g/dL (12.0-16.0); Immature Granulocytes # (auto) 0.04 K/uL (0.00-0.02); Immature Granulocytes % (auto) 0.3 %; Lymphocytes # (auto) 1.68 K/uL (1.2-3.4); Lymphocytes % (auto) 12.9 %; Mean Corpuscular Hemoglobin 24.1 pg (25-34); Mean Corpuscular Hgb Conc 31.6 g/dL (32-36); Mean Corpuscular Volume 76.4 fL (80-100); Mean Platelet Volume 9.7 fL (7.4-10.4); Monocytes # (auto) 0.99 K/uL (0.11-0.59); Monocytes % (auto) 7.6 %; Neutrophils # (auto) 9.93 K/uL (1.4-6.5); Neutrophils % (auto) 76.5 %; Platelet Count 346 K/uL (130-400); RDW Coefficient of Variation 15.6 % (11.5-14.5); RDW Standard Deviation 43.3 fL (36.4-46.3); Red Blood Count 5.18 M/uL (4.2-5.4); White Blood Count 12.98 K/uL (4.8-10.8)
[2020-01-01 23:28] LABS: Appearance Urine Cloudy (Clear); Color Urine Orange; Protein Urine Positive (Negative); Sulfosalicylic Acid Urine Positive (Negative)
[2020-01-01 23:30] LABS: Epithelial Cell Urine >30 /lpf (0-5); Mucus Urine Present (None Prsent)
[2020-01-01 23:31] LABS: Pregnancy Test, Urine Negative (Negative)
[2020-01-01 23:32] LABS: Bacteria Urine 1+ (Negative)
[2020-01-01] MEDS ORDERED: cefTRIAXone SODIUM 2,000 MG/70 ML BAG IV STA (23:36)
[2020-01-01 23:43] LABS: Albumin Level 3.4 gm/dl (3.4-5.0); BUN Creatinine Ratio 14.5 (10-20); Creatinine Clr Calc Pharmacy 92.2 ml/min; Est GFR (African American) 84.5; Est GFR (Non-African American) 72.9; Potassium 3.8 mmol/L (3.5-5.1)
[2020-01-01 23:46] LABS: Albumin Globulin Ratio 0.8 (0.9-2); Bilirubin,Total 0.3 mg/dl (0.2-1); Globulin 4.5 gm/dl (2.5-4.0); Total Protein 7.9 gm/dl (6.4-8.2)
[2020-01-02] MEDS ORDERED: IOVERSOL 100ml IV ONE (01:37)
--- NOTE | 2020-01-02 01:54 | History & Physical Report ---
Date of Service January 02, 2020 Assessment & Plan (1) Acute left flank pain: Acute left flank flank pain/status post removal of ureteral stent/questionable left subcapsular hematoma- NPO NSS + KCl 20 mEq 100 mils per hour Zofran 4 mg IV every 6 hours PRN Ceftriaxone 1 g IV daily Consult urology Present on Admission?: Yes (2) Pain due to ureteral stent: See above Present on Admission?: Yes (3) GERD (gastroesophageal reflux disease): Continue pantoprazole 40 mg daily. Given Carafate by the ED Present on Admission?: Yes History of Present Illness Chief Complaint: The patient presents to the emergency department with complaint of flank pain status post removal of ureteral stent earlier in the day. Primary Care Provider: Emiliana Raza MD The patient is a 34-year-old female with a past medical history including diabetes mellitus, GERD, gestational hypertension, toxemia , iron deficiency anemia, headache and microscopic hematuria. She had ureteral stent removed by urology Dr. Ley earlier in the day, as she was poorly tolerating the stent. Dr. Ley felt at that time that the patient would need to follow-up with nephrology to further pursue issues related to hematuria. The patient reported to the ED due to worse left flank pain. Allergies Allergy/AdvReac Type Severity Reaction Status Date / Time No Known Allergies Allergy Verified 01/01/20 10:59 Home Medications Home Medications Medication Instructions Recorded Confirmed Type pantoprazole [Protonix] 40 mg PO DAILY PRN 12/11/19 01/01/20 History tamsulosin 0.4 mg PO HS #30 cap 12/24/19 01/01/20 Rx ciprofloxacin HCl 500 mg tablet 500 mg PO BID 3 Days #6 tab 12/25/19 01/01/20 Rx oxybutynin chloride 5 mg PO BID PRN 12/25/19 01/01/20 History docusate sodium 100 mg PO BID 30 Days #60 cap 12/27/19 01/01/20 Rx ferrous sulfate 325 mg PO BIDM #60 tab 12/27/19 01/01/20 Rx lisinopril 2.5 mg PO QAM #30 tab 12/27/19 01/01/20 Rx ondansetron 4 mg PO Q8H PRN #10 ea 12/27/19 01/01/20 Rx polyethylene glycol 3350 [Miralax] 17 g PO DAILY 30 Days ea 12/27/19 01/01/20 Rx oxycodone-acetaminophen 5 mg-325 1 tab PO Q6H PRN #7 tab 12/31/19 01/01/20 Rx mg tablet phenazopyridine 200 mg tablet 200 mg PO Q8H PRN #7 tab 12/31/19 01/01/20 Rx Past Med/Surg History Medical History Acute flank pain Blood in urine found in u/a GERD (gastroesophageal reflux disease) Intractable pain Morbid obesity Proteinuria DR. 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 Beliefs That Will Affect Care: None marital status: Current Living Situation: Family Other Information That Helps Us Care for You: No Feels Safe at Home: Yes Safety Concerns: Feels Safe At This Time Assistive Devices: None Review of Systems Review of Systems: The patient denies chest pain, palpitations, shortness of breath, dyspnea on exertion, cough, lower extremity swelling, sore throat, fevers, chills, sweats, weight change, fatigue, nausea, vomiting, diarrhea, pelvic pain, blood in stool, dysuria, urinary frequency or urgency, lightheadedness, dizziness, headache, memory loss, loss of consciousness, rash, abnormal bruising or bleeding, imbalance, focal or generalized weakness, numbness or tingling in arms or legs, generalized arthralgias or myalgias, neck pain, or night sweats. The review of systems is otherwise negative other than for that already noted above, and at least 10 systems have been reviewed. Physical Exam Physical Exam: The patient is awake, alert and oriented 3, well developed and well nourished, normocephalic and atraumatic, lying in bed and in no acute distress. HEENT--PERRL, EOMI, mucous membranes and oropharynx normal. Neck--supple. No JVD. No bruits. Thyroid normal, trachea midline, no adenopathy. Heart--normal S1 and S2. No murmurs, rubs or gallops. Lungs--clear bilaterally, no respiratory distress, no accessory muscle use. Abdomen--normal bowel sounds and soft. Mild tenderness along left flank. Nondistended. Extremities--no cyanosis or clubbing. No edema. Dermatologic--normal skin turgor, normal color, no abnormal lymph nodes, no rash. Neurologic--cranial nerves II through XII grossly intact. Rheumatologic--normal range of motion. Psychiatric--normal affect. Results & Data Results & Data ([facility]) Vital Signs (Past 12 Hours) Vital Signs Temp Pulse Resp BP Pulse Ox 01/02/20 00:40 84 19 129/76 96 01/01/20 22:45 98.4 F 97 H 20 131/93 96 Laboratory Results Laboratory Results WBC 12.98 K/uL (4.8-10.8) H 01/01/20 23:09 RBC 5.18 M/uL (4.2-5.4) 01/01/20 23:09 Hgb 12.5 g/dL (12.0-16.0) 01/01/20 23:09 Hct 39.6 % (37-47) 01/01/20 23:09 MCV 76.4 fL (80-100) L 01/01/20 23:09 MCH 24.1 pg (25-34) L 01/01/20 23:09 MCHC 31.6 g/dL (32-36) L 01/01/20 23:09 RDW Std Deviation 43.3 fL (36.4-46.3) 01/01/20 23:09 RDW Coeff of Amrit 15.6 % (11.5-14.5) H 01/01/20 23:09 Plt Count 346 K/uL (130-400) 01/01/20 23:09 MPV 9.7 fL (7.4-10.4) 01/01/20 23:09 Immature Gran % (Auto) 0.3 % 01/01/20 23:09 Neut % (Auto) 76.5 % 01/01/20 23:09 Lymph % (Auto) 12.9 % 01/01/20 23:09 [place] % (Auto) 7.6 % 01/01/20 23:09 Eos % (Auto) 2.5 % 01/01/20 23:09 Baso % (Auto) 0.2 % 01/01/20 23:09 Neut # (Auto) 9.93 K/uL (1.4-6.5) H 01/01/20 23:09 Lymph # (Auto) 1.68 K/uL (1.2-3.4) 01/01/20 23:09 [place] # (Auto) 0.99 K/uL (0.11-0.59) H 01/01/20 23:09 Eos # (Auto) 0.32 K/uL (0-0.5) 01/01/20 23:09 Baso # (Auto) 0.02 K/uL (0-0.2) 01/01/20 23:09 Immature Gran # (Auto) 0.04 K/uL (0.00-0.02) H 01/01/20 23:09 Sodium 138 mmol/L (136-145) 01/01/20 23:09 Potassium 3.8 mmol/L (3.5-5.1) 01/01/20 23:09 Chloride 106 mmol/L (98-107) 01/01/20 23:09 Carbon Dioxide 26 mmol/L (21-32) 01/01/20 23:09 Anion Gap 6.0 (3-11) 01/01/20 23:09 BUN 14 mg/dl (7-18) 01/01/20 23:09 Creatinine 1.00 mg/dl (0.6-1.2) 01/01/20 23:09 Est Cr Clr Drug Dosing 92.2 ml/min 01/01/20 23:09 Est GFR ( Amer) 84.5 01/01/20 23:09 Est GFR (Non-Af Amer) 72.9 01/01/20 23:09 BUN/Creatinine Ratio 14.5 (10-20) 01/01/20 23:09 Glucose 105 mg/dl (70-99) H 01/01/20 23:09 Calcium 10.0 mg/dl (8.5-10.1) 01/01/20 23:09 Total Bilirubin 0.3 mg/dl (0.2-1) 01/01/20 23:09 AST 13 U/L (15-37) L 01/01/20 23:09 ALT 27 U/L (12-78) 01/01/20 23:09 Alkaline Phosphatase 92 U/L (45-117) 01/01/20 23:09 Total Protein 7.9 gm/dl (6.4-8.2) 01/01/20 23:09 Albumin 3.4 gm/dl (3.4-5.0) 01/01/20 23:09 Globulin 4.5 gm/dl (2.5-4.0) H 01/01/20 23:09 Albumin/Globulin Ratio 0.8 (0.9-2) L 01/01/20 23:09 Lipase 96 U/L (73-393) 01/01/20 23:09 Urine Color [place] 01/01/20 23:09 Urine Appearance Cloudy (Clear) A 01/01/20 23:09 Urine pH (4.5-7.5) 01/01/20 23:09 Ur Specific [place] 1.020 (1.000-1.060) 01/01/20 23:09 Urine Protein Positive (Negative) H 01/01/20 23:09 Urine Glucose (UA) (Negative) 01/01/20 23:09 Urine Ketones (Negative) 01/01/20 23:09 Urine Blood (Negative) 01/01/20 23:09 Urine Nitrite (Negative) 01/01/20 23:09 Urine Bilirubin (Negative) 01/01/20 23:09 Urine Urobilinogen (Negative) 01/01/20 23:09 Ur Leukocyte Esterase (Negative) 01/01/20 23:09 Urine RBC 10-30 /hpf (0-4) H 01/01/20 23:09 Urine WBC 10-30 /hpf (0-5) H 01/01/20 23:09 Ur Epithelial Cells >30 /lpf (0-5) H 01/01/20 23:09 Urine Bacteria 1+ (Negative) H 01/01/20 23:09 Urine Mucus Present (None Prsent) A 01/01/20 23:09 Urine Test Negative (Negative) 01/01/20 23:09 Blood Type A Positive 01/02/20 01:39 Antibody Screen NEGATIVE 01/02/20 01:39 Diagnostic Findings [facility] Patient: KAUSHIK LOPEZ (Female) : 83 Status: ER Date: 01/02/20 00:48 Room #: History: LEFT FLANK PAIN Slices: 51 Priors: Tech: Laron Bernarda @ [phone] Exams: US RENAL Contrast: Accession Numbers: [id number] Preliminary Findings Only See Final Report For Complete Findings US RENAL: Left kidney measures 13.5 cm. No hydronephrosis. Subcapsular collection measuring 3.3 x 5.1 x 0.8 cm, possibly a subcapsular hematoma. Right kidney measures 13.3 cm. No hydronephrosis. Decompressed urinary bladder, limiting evaluation. Ureteral jets are not visualized during the course of exam. Small region of shadowing in the superior bladder, possibly intraluminal gas related to recent stent removal. Radiologist: Danette Lindsey M.D. Study ready at 00:50 and initial results transmitted at 00:54 *This report constitutes a preliminary interpretation only. Non-acute findings felt to be unrelated to the clinical presentation may not be discussed in this report. The study will be interpreted and a final report will be generated by the local Radiologist the following shift. To reach the hospital radiology department call [phone]. If a discrepancy is found between the preliminary and final interpretations of this study, please notify us via our Client Portal at [email or web address] can also fax this report with a description of the discrepancy, or include the final report, to our daytime fax number [phone].If faxing, please indicate the severity of discrepancy using one of the following categories: [ ] 1 - Agree/Informational [ ] 2 - Unlikely to Affect Management [ ] 3 - Possible Eventual Change of Management [ ] 4 - Probable Immediate Change of Management For all other patient related information, please fax us at [phone]. [id number] [facility] Patient: KAUSHIK LOPEZ (Female) : 83 Status: ER Date: 01/02/20 01:35 Room #: History: VOMITING SUB CAPSULAR HEMATOMA Slices: 759 Priors: Fiona: Raul Abdalla @ [phone] Exams: CT ABDOMEN & PELVIS With Contrast Contrast: IV Amt: 92 ML OPTIRAY 320 Accession Numbers: [id number] Preliminary Findings Only See Final Report For Complete Findings CT ABDOMEN & PELVIS With Contrast: Comparison: Renal ultrasound 01/02/20. Left kidney low-density subcapsular fluid collection measuring 3.3 x 0.9 x 5.2 cm. This may represent a subcapsular hematoma, probably subacute to chronic. Very mild left-sided hydroureteronephrosis. No radiopaque stones. Correlate with urinalysis to exclude urinary tract infection. Right kidney and collecting system are normal. Liver, gallbladder, spleen, pancreas, adrenal glands are unremarkable. Normal appendix. No bowel obstruction or inflammation. Urinary bladder and uterus are unremarkable. No acute osseous findings. Radiologist: Danette Lindsey M.D. Study ready at 01:44 and initial results transmitted at 02:00 *This report constitutes a preliminary interpretation only. Non-acute findings felt to be unrelated to the clinical presentation may not be discussed in this report. The study will be interpreted and a final report will be generated by the local Radiologist the following shift. To reach the hospital radiology department call [phone]. If a discrepancy is found between the preliminary and final interpretations of this study, please notify us via our Client Portal at [email or web address] can also fax this report with a description of the discrepancy, or include the final report, to our daytime fax number [phone].If faxing, please indicate the severity of discrepancy using one of the following categories: [ ] 1 - Agree/Informational [ ] 2 - Unlikely to Affect Management [ ] 3 - Possible Eventual Change of Management [ ] 4 - Probable Immediate Change of Management For all other patient related information, please fax us at [phone]. [id number] Code Status & VTE Plan Code Status Full code VTE Prophylaxis Plan VTE Prophylaxis will be ordered: Yes PG Care Time/CCT Total # of Minutes Spent Total Time Spent with Patient: Total time spent is greater than 50% in coordination of care (as documented) at patient's floor/unit and/or counseling patient: Coding Level of Care Code 45001 [facility] Care - Level 3 Diagnoses Acute left flank pain R10.9 Pain due to ureteral stent T83.84XA Encounter type: initial encounter GERD (gastroesophageal reflux disease) K21.9 Esophagitis presence: esophagitis presence not specified (1) Pain due to ureteral stent Encounter type: initial encounter Qualified Code(s): T83.84XA - Pain due to genitourinary prosthetic devices, implants and grafts, initial encounter (2) GERD (gastroesophageal reflux disease) Esophagitis presence: esophagitis presence not specified Qualified Code(s): K21.9 - Gastro-esophageal reflux disease without esophagitis
[2020-01-02] MEDS ORDERED: GI COCKTAIL ED USE PO ONE ×2 (01:58→02:01)
[2020-01-02] MEDS ORDERED: FAMOTIDINE 40 MG TABLET PO ONE (01:58)
[2020-01-02] MEDS ORDERED: SUCRALFATE 1 GM TAB PO STA (01:58)
[2020-01-02] MEDS ORDERED: SUCRALFATE 1 GM/10 ML UDC ONE (02:01)
[2020-01-02] MEDS ORDERED: FAMOTIDINE 20MG/5ML IV PUSH IV ONE (02:01)
[2020-01-02] MEDS ORDERED: ONDANSETRON INJ 2 MG/ML 2 ML VIAL IV PRN (03:32)
[2020-01-02] MEDS ORDERED: HYDROmorphone INJ 0.5 MG/0.5 ML SYR IV PRN (03:32)
[2020-01-02] MEDS: SODIUM CHLORIDE 0.9% 1000ML 1,000 ML IV SCH ×2 (04:26→15:35)
--- NOTE | 2020-01-02 07:42 | XRay Report ---
KUB HISTORY: Pt c/o left sided flank pain COMPARISON: Abdomen and pelvis CT 11/27/2019. FINDINGS: The bowel gas pattern is unremarkable. There are no dilated loops of small bowel to suggest an obstruction. No renal calculi. No ureteral calculi. Calcifications in the deep pelvis likely rep resent phleboliths. These remain unchanged. No pneumoperitoneum or pneumatosis. IMPRESSION: No renal or ureteral stones. ACT 112: Negative or not required by law. Electronically signed by: Adalberto Nguyen M.D. 01/02/2020 7:41 AM
--- NOTE | 2020-01-02 07:50 | CT Scan Report ---
ABDOMEN AND PELVIS CT WITH IV CONTRAST CT DOSE: 1098.14 mGycm HISTORY: Abnormal ultrasound. Left flank pain. ?? sub capsular hematoma TECHNIQUE: Multiaxial CT images of the abdomen and pelvis were performed following the use of intrave nous contrast. A dose lowering technique was utilized adhering to the principles of ALARA. COMPARISON STUDY: Renal ultrasound 01/02/2020. Abdomen and pelvis CT 11/27/2019. FINDINGS: The lung bases are clear. A few subcentimeter hypodense lesions within the liver which are too small to characterize. There is also a subtle 2.3 cm hypodense lesion within the right hepatic lo be on image 165 and an additional subtle hypodense lesion within the left hepatic lobe measuring 1 cm on image 127. These are incompletely characterized but favor hemangiomas. The gallbladder, spleen, a drenal glands, pancreas, and right kidney are unremarkable. There is a small subcapsular hematoma wit hin the left kidney which measures a maximal thickness of 1 cm. This measures approximately 5 cm in l ength. This favors a subacute to chronic subcapsular hematoma. This results in minimal mass effect al alexsandra the left kidney. There is mild fullness within the left renal collecting system without sean hyd ronephrosis. Mild left periureteral edema is noted. Calcifications in the deep pelvis consistent with phleboliths. No ureteral stones identified. Small focus of gas within the bladder lumen. No pelvic f ree fluid. No bowel wall thickening or obstruction. A few colonic diverticula. No evidence for divert iculitis. Normal appendix. No retroperitoneal lymphadenopathy. Normal caliber abdominal aorta. No darlene picious lytic or blastic osseous lesions. IMPRESSION: 1. Small left renal subcapsular hematoma which is likely subacute to chronic. This results in minimal mass effect along the left kidney. 2. Mild fullness within the left renal collecting system and left ureter without sean hydronephrosis . No ureteral stones identified. 3. Punctate focus of gas within the bladder lumen may be due to recent instrumentation. 4. A few subtle hypodense lesions within the liver which do not represent cysts. These favor hemangio mas but are incompletely characterized on this study. ACT 112: Negative or not required by law. Electronically signed by: Adalberto Nguyen M.D. 01/02/2020 7:48 AM
--- NOTE | 2020-01-02 07:51 | Ultrasound Report ---
RENAL ULTRASOUND HISTORY: Pt c/o left sided flank pain COMPARISON: KUB 01/02/2020. Renal ultrasound 10/05/2019. FINDINGS: Right kidney: 13.3 cm. No hydronephrosis. Normal corticomedullary differentiation and cortical thickn ess. Left kidney: 13.5 cm. Mild fullness within the left renal collecting system without sean hydronephro sis. There is a small subcapsular hematoma measuring 5.1 x 3.3 x 0.8 cm. Normal corticomedullary diff erentiation and cortical thickness. Bladder: Decompressed and not well visualized. There is a small focus of gas within the bladder lumen . IMPRESSION: 1. Small left renal subcapsular hematoma measuring 5.1 x 3.3 x 0.8 cm. 2. Mild fullness within the left renal collecting system without sean hydronephrosis. 3. Small amount of gas within the bladder lumen. This could be due to recent instrumentation. ACT 112: Negative or not required by law. Electronically signed by: Adalberto Nguyen M.D. 01/02/2020 7:50 AM
--- NOTE | 2020-01-02 09:36 | Urology Consultation ---
Date of Consultation January 02, 2020 Assessment & Plan (1) Acute left flank pain: 34 year-old female patient with multiple comorbidities admitted to the hospital with intractable left flank/abdominal pain status post left ureteral stent removal. -Plan of care reviewed with Dr. Goodwin. -Patient afebrile, hemodynamically stable. -Imaging reviewed, notable for left-sided perinephric edema/small subcapsular renal hematoma. No hydronephrosis. -No acute intervention indicated at this time. -Continue supportive care including hydration and pain control. -Okay to resume diet. -Will repeat CBC and BMP today, await results. -Await results of urine culture and treat appropriately if indicated. -Will need repeat renal ultrasound in future to ensure resolution of left perinephric edema/subcapsular hematoma. -Continue to follow while inpatient. History of Present Illness Reason for Consultation: Subcapsular hematoma Attending Physician: Iglesia Keane, History of Present Illness 34 year-old female patient with past medical history including diabetes mellitus, GERD, gestational hypertension, toxemia , iron deficiency anemia, headache and microscopic hematuria, admitted to the hospital secondary to intractable left flank/abdominal pain following left ureteral stent removal. Patient known to urology service - follows with Dr. Ley for microscopic hematuria. She is status post cystoscopy, bilateral retrograde Pyelogram, ureteronephroscopy and left dilation of ureter and left stent insertion on December 24, [address] Ley. Patient found to have no major abnormalities at that time. Chart review: Afebrile Blood pressure acceptable Wbc 12.98 Hgb 12.5 Creatinine 1.00 Urinalysis positive for protein, 10-30 rbc, 10-30 wbc, +1 bacteria, + mucus. Urine culture pending. Imaging: Renal ultrasound - IMPRESSION: 1. Small left renal subcapsular hematoma measuring 5.1 x 3.3 x 0.8 cm. 2. Mild fullness within the left renal collecting system without sean hydronephrosis. 3. Small amount of gas within the bladder lumen. This could be due to recent instrumentation. CT abd/pelvis: IMPRESSION: 1. Small left renal subcapsular hematoma which is likely subacute to chronic. This results in minimal mass effect along the left kidney. 2. Mild fullness within the left renal collecting system and left ureter without sean hydronephrosis. No ureteral stones identified. 3. Punctate focus of gas within the bladder lumen may be due to recent instrumentation. 4. A few subtle hypodense lesions within the liver which do not represent cysts. These favor hemangiomas but are incompletely characterized on this study. Patient examined this morning, she is laying comfortably in bed. Reports her severe left flank/abdominal pain has significantly improved since last evening. Now reports mild left abdominal/flank "pressure". She has not required any pain medication since late last evening. She reports her nausea has resolved. Denies vomiting. Denies fevers or chills. She is unsure if she has hematuria as her urine is concentrated. Denies dysuria. Did have some frequency/urgency associated with pain yesterday but this has also resolved. She states she did not tolerate the prior stent due to discomfort. Phone update provided to her family per her request with her present in the room. Denies additional urologic concerns. Allergies Allergy/AdvReac Type Severity Reaction Status Date / Time No Known Allergies Allergy Verified 01/01/20 10:59 Home Medications Home Medications Medication Instructions Recorded Confirmed Type pantoprazole [Protonix] 40 mg PO DAILY PRN 12/11/19 01/01/20 History tamsulosin 0.4 mg PO HS #30 cap 12/24/19 01/01/20 Rx ciprofloxacin HCl 500 mg tablet 500 mg PO BID 3 Days #6 tab 12/25/19 01/01/20 Rx oxybutynin chloride 5 mg PO BID PRN 12/25/19 01/01/20 History docusate sodium 100 mg PO BID 30 Days #60 cap 12/27/19 01/01/20 Rx ferrous sulfate 325 mg PO BIDM #60 tab 12/27/19 01/01/20 Rx lisinopril 2.5 mg PO QAM #30 tab 12/27/19 01/01/20 Rx ondansetron 4 mg PO Q8H PRN #10 ea 12/27/19 01/01/20 Rx polyethylene glycol 3350 [Miralax] 17 g PO DAILY 30 Days ea 12/27/19 01/01/20 Rx oxycodone-acetaminophen 5 mg-325 1 tab PO Q6H PRN #7 tab 12/31/19 01/01/20 Rx mg tablet phenazopyridine 200 mg tablet 200 mg PO Q8H PRN #7 tab 12/31/19 01/01/20 Rx Patient History Medical History (Updated 01/02/20 @ 15:39 by JUANJO Chavez) Acute flank pain Blood in urine found in u/a GERD (gastroesophageal reflux disease) Intractable pain Morbid obesity Proteinuria 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 Surgical History Hx of tubal ligation Hx of wisdom tooth extraction NO ANESTHESIA USED/ONLY NOVOCAINE Family History Father Family history of diabetes mellitus Brother Family history of diabetes mellitus Grandfather (Maternal) Family history of diabetes mellitus Social History Smoking Status: Former smoker Second Hand Exposure: No; Hx Alcohol Use: No Hx Substance Use: No Preferred Language: Tunisian Communication Ability: Effective Dumpman Required: No Beliefs That Will Affect Care: None marital status: Current Living Situation: Family Other Information That Helps Us Care for You: No Feels Safe at Home: Yes Safety Concerns: Feels Safe At This Time Assistive Devices: None Review of Systems Constitutional: no fever and no chills Ear, Nose, Mouth, Throat: no dizziness Respiratory: no cough and no dyspnea Cardiovascular: no chest pain and no edema Gastrointestinal: as per Subjective / HPI Genitourinary: as per Subjective / HPI Musculoskeletal: no swelling Neurologic: no dizziness and no syncope Physical Exam Constitutional: well developed and well nourished; no acute distress and not ill appearing Eyes: no eyelid abnormality ENMT: Ears: no external ear abnormality Nose: no external nose abnormality Neck: normal visual inspection and trachea midline Respiratory: normal respiratory effort and able to speak in complete sentences; no respiratory distress and no audible wheezes Cardiovascular: Extremities: no calf tenderness and no edema Gastrointestinal (Abdomen): Inspection/Auscultation: abdomen normal to inspection; abdomen not distended Percussion/Palpation: + abdomen tender (Mild tenderness to left upper quadrant) and abdomen soft; no guarding Musculoskeletal: Moves all extremities without difficulty. Skin: No visible rashes, lesions, or wounds noted. Neurologic: moves all extremities and awake Psychiatric: Orientation: alert, oriented x 3 and cooperative Affect: euth ymic affect Genitourinary: no CVA tenderness Results & Data ([facility]) Vital Signs (Past 12 Hours) Vital Signs Temp Pulse Pulse Resp BP BP Pulse Ox 01/02/20 07:25 36.4 C L 75 16 114/76 97 01/02/20 02:50 36.4 C L 76 16 129/85 95 01/02/20 00:40 84 19 129/76 96 01/01/20 22:45 36.9 C 97 H 20 131/93 96 PG Care Time/CCT Total # of Minutes Spent Total Time Spent with Patient: Total time spent is greater than 50% in coordination of care (as documented) at patient's floor/unit and/or counseling patient: Coding Level of Care Code 87156 Inpt Consult Level 4 Diagnoses Acute left flank pain R10.9
[2020-01-02 10:48] LABS: Basophils # (auto) 0.01 K/uL (0-0.2); Basophils % (auto) 0.1 %; Eosinophils # (auto) 0.32 K/uL (0-0.5); Hematocrit (blood only) 37.8 % (37-47); Hemoglobin 11.7 g/dL (12.0-16.0); Immature Granulocytes # (auto) 0.03 K/uL (0.00-0.02); Immature Granulocytes % (auto) 0.3 %; Lymphocytes # (auto) 0.93 K/uL (1.2-3.4); Lymphocytes % (auto) 8.7 %; Mean Corpuscular Hemoglobin 23.6 pg (25-34); Mean Corpuscular Volume 76.4 fL (80-100); Mean Platelet Volume 9.3 fL (7.4-10.4); Monocytes # (auto) 0.69 K/uL (0.11-0.59); Monocytes % (auto) 6.4 %; Neutrophils # (auto) 8.74 K/uL (1.4-6.5); Neutrophils % (auto) 81.5 %; Platelet Count 286 K/uL (130-400); RDW Coefficient of Variation 15.7 % (11.5-14.5); RDW Standard Deviation 43.6 fL (36.4-46.3); Red Blood Count 4.95 M/uL (4.2-5.4); White Blood Count 10.72 K/uL (4.8-10.8)
[2020-01-02 11:29] LABS: BUN Creatinine Ratio 17.8 (10-20); Calcium 8.8 mg/dl (8.5-10.1); Creatinine Clr Calc Pharmacy 128.8 ml/min; Est GFR (African American) 127.9; Est GFR (Non-African American) 110.4; Potassium 3.6 mmol/L (3.5-5.1)
[2020-01-02] MEDS: OXYCODONE HCL IR 5 MG TAB (IMMEDIATE RELEASE) PO PRN ×3 (12:24→23:55)
--- NOTE | 2020-01-02 13:08 | Hospitalist Progress Note ---
Date of Service January 02, 2020 Assessment & Plan (1) Acute left flank pain: Acute left flank flank pain/status post removal of ureteral stent/questionable left subcapsular hematoma- Zofran 4 mg IV every 6 hours PRN Ceftriaxone 1 g IV daily Consulted urology - no plans for intervention at this time (2) Pain due to ureteral stent: See above (3) Hematoma: subcapsular/perinephric edema - will need follow up renal US in the future to ensure resolution Hgb stable (4) GERD (gastroesophageal reflux disease): Continue pantoprazole 40 mg daily. (5) Proteinuria: Sees Dr. Shaw locally and Dr. Betts at [facility]. Stable, kidney function normal (6) Diabetes mellitus: Type II, diagnosed last admission, A1c 6.6 Patient wished to try diet and exercise first to treat DMII diet, accucheck ac & hs (7) DVT prophylaxis: scd Admission and Anticipated Discharge Date Admission Date: January 02, 2020 Subjective Ms. Ponce's pain is much improved today, some left flank pressure yet. No nausea or vomiting. ROS Constitutional: no chills, aches, sweats or fever Respiratory: no sob,cough, sputum, or wheezing Cardiac: no chest pain, palpitations, edema, orthopnea or lightheadedness GI: no abdominal pain, nausea, vomiting, diarrhea or constipation : no dysuria or hesitancy Extremities: no joint pain or weakness Skin: no rash All other systems reviewed and negative Physical Exam Physical Exam: General: no distress Eyes: normal inspection, PERLL Respiratory: chest non tender, clear to auscultation, normal breath sounds, no respiratory distress, no accessory muscle use Cardiac: regular rate and rhythm, no rub or gallop, no murmur, no edema, no jvd GI/: active bowel sounds, no abd pain or tenderness, soft, non distended Extremities: normal range of motion, normal strength, non tender Neuro/Psych: alert and oriented x 3, normal mood and affect Skin: normal color, dry Results & Data Results & Data ([facility]) Vital Signs (Past 12 Hours) Vital Signs Temp Pulse Resp BP Pulse Ox 01/02/20 07:25 36.4 C L 75 16 114/76 97 01/02/20 02:50 36.4 C L 76 16 129/85 95 PG Care Time/CCT Total # of Minutes Spent Total Time Spent with Patient: Total time spent is greater than 50% in coordination of care (as documented) at patient's floor/unit and/or counseling patient: Coding Level of Care Code 28576 Subseq Hosp Care Lvl 2 Diagnoses Acute left flank pain R10.9 Pain due to ureteral stent T83.84XA Encounter type: initial encounter Hematoma T14.8XXA GERD (gastroesophageal reflux disease) K21.9 Esophagitis presence: esophagitis presence not specified Proteinuria R80.9 Diabetes mellitus E11.9 DVT prophylaxis Z29.9 (1) Pain due to ureteral stent Encounter type: initial encounter Qualified Code(s): T83.84XA - Pain due to genitourinary prosthetic devices, implants and grafts, initial encounter (2) GERD (gastroesophageal reflux disease) Esophagitis presence: esophagitis presence not specified Qualified Code(s): K21.9 - Gastro-esophageal reflux disease without esophagitis
[2020-01-02] MEDS ORDERED: PANTOprazole 40 MG TAB PO PRN (15:39)
[2020-01-02] MEDS ORDERED: OXYBUTYNIN CHLORIDE 5 MG TAB PO PRN (15:39)
[2020-01-02] MEDS ORDERED: PHENAZOPYRIDINE HCL 200 MG TAB PO PRN (15:39)
[2020-01-02] MEDS: FERROUS SULFATE 325 MG TAB PO SCH (16:59)
[2020-01-02] MEDS: cefTRIAXone SODIUM 2,000 MG in DEXTROSE 5% 50 ML IV SCH (20:40)
[2020-01-02] MEDS: DOCUSATE SODIUM 100 MG CAP PO SCH (20:41)
[2020-01-02] MEDS: TAMSULOSIN HCL 0.4 MG CAP PO SCH (20:41)
[2020-01-03] MEDS: SODIUM CHLORIDE 0.9% 1000ML 1,000 ML IV SCH ×2 (04:23→16:04)
[2020-01-03] MEDS: OXYCODONE HCL IR 5 MG TAB (IMMEDIATE RELEASE) PO PRN ×4 (06:10→23:26)
[2020-01-03 07:35] LABS: Hematocrit (blood only) 35.5 % (37-47); Hemoglobin 11.1 g/dL (12.0-16.0); Mean Corpuscular Hemoglobin 23.6 pg (25-34); Mean Corpuscular Hgb Conc 31.3 g/dL (32-36); Mean Corpuscular Volume 75.4 fL (80-100); Mean Platelet Volume 9.3 fL (7.4-10.4); Platelet Count 263 K/uL (130-400); RDW Coefficient of Variation 15.5 % (11.5-14.5); RDW Standard Deviation 42.7 fL (36.4-46.3); Red Blood Count 4.71 M/uL (4.2-5.4); White Blood Count 8.76 K/uL (4.8-10.8)
[2020-01-03 08:22] LABS: BUN Creatinine Ratio 16.7 (10-20); Calcium 9.1 mg/dl (8.5-10.1); Creatinine Clr Calc Pharmacy 140.7 ml/min; Est GFR (African American) 133.3; Potassium 3.5 mmol/L (3.5-5.1)
[2020-01-03] MEDS: DOCUSATE SODIUM 100 MG CAP PO SCH ×2 (08:47→20:46)
[2020-01-03] MEDS: POLYETHYLENE (MIRALAX) 17 GM PACK PO SCH (08:47)
[2020-01-03] MEDS: FERROUS SULFATE 325 MG TAB PO SCH ×2 (08:48→18:05)
--- NOTE | 2020-01-03 11:05 | Ultrasound Report ---
ULTRASOUND KIDNEYS AND BLADDER CLINICAL HISTORY: Left renal hematoma. COMPARISON STUDY: Abdominal CT and renal ultrasound dated 01/02/2020. TECHNIQUE: Real-time, grayscale, and color flow sonography of the kidneys and bladder is performed. I mages are reviewed in the transverse and longitudinal planes. FINDINGS: Kidneys: The kidneys are normal in size and echotexture. The right kidney measures 14.2 cm in length and the left kidney measures 13.7 cm in length.. The lateral collecting system is similar to previous . There is no hydronephrosis. No shadowing renal calculi are identified. A subcapsular fluid collecti on along the interpolar left kidney has modestly increased in size from yesterday. This measures 6.9 x 1.2 x 3.3 cm. There is no sonographic evidence of contour deforming renal mass lesion. \ Bladder: The bladder is normal in appearance. Bilateral ureteral jets were seen. IMPRESSION: 1. The kidneys are normal in size and without hydronephrosis. Fullness of the left renal collecting s ystem is similar to previous. 2. A subcapsular hematoma of the left kidney has modestly increased in size from yesterday. ACT 112: Negative or not required by law. Electronically signed by: Holden Marin M.D. 01/03/2020 11:04 AM
--- NOTE | 2020-01-03 12:23 | Urology Progress Note ---
Date of Service January 03, 2020 Assessment & Plan (1) Acute left flank pain: Small subcapsular hematoma after ureteroscopy; likely ureteral spasm I do not think the subcapsular hematoma will have any significance in the long run, this may contribute to her pain but I suspect ureteral spasm is the more likely cause At this point she is tolerating the discomfort with oral pain medications and I would recommend continuation of this with supportive care rather than any interventions Once deemed stable from a medical standpoint I believe discharge home would be extremely reasonable with pain control at home Admission and Anticipated Discharge Date Admission Date: January 02, 2020 Subjective 34-year-old female status post recent upper tract exploration and stent placement She has now stent free She was noted to have a small subcapsular hematoma on the left, she had some ureteral edema and hydronephrosis on initial admission Subsequent ultrasound performed earlier today shows persistence of the subcapsular hematomaminimal change, slight improvement of the dilation of the ureter She reported that she had minimal pain yesterday but has experienced pain again today No associated nausea or vomiting She greatly prefers to avoid a stent Her creatinine remained stable at 0.65 She is afebrile She is somewhat anxious to go home Physical Exam Constitutional: well developed and well nourished Respiratory: no respiratory distress Cardiovascular: Extremities: no pedal edema Gastrointestinal (Abdomen): Inspection/Auscultation: abdomen normal to inspection Results & Data ([facility]) Vital Signs (Past 12 Hours) Vital Signs Temp Pulse Resp BP Pulse Ox 01/03/20 07:14 36.7 C 84 16 120/81 95 PG Care Time/CCT Total # of Minutes Spent Total Time Spent with Patient: Total time spent is greater than 50% in coordination of care (as documented) at patient's floor/unit and/or counseling patient: Coding Level of Care Code 06919 Subseq Hosp Care Lvl 2 Diagnoses Acute left flank pain R10.9
--- NOTE | 2020-01-03 13:52 | Discharge Summary ---
Date of Service January 03, 2020 Admission HPI Per Admitting Provider The patient is a 34-year-old female with a past medical history including diabetes mellitus, GERD, gestational hypertension, toxemia , iron deficiency anemia, headache and microscopic hematuria. She had ureteral stent removed by urology Dr. Ley earlier in the day, as she was poorly tolerating the stent. Dr. Ley felt at that time that the patient would need to follow-up with nephrology to further pursue issues related to hematuria. The patient reported to the ED due to worse left flank pain. Principal Diagnosis Renal colic, ureteral spasm, subcapsular hematoma Discharge Exam Constitutional WD/WN, vitals as above Respiratory normal respiratory effort, lungs clear to auscultation Cardiovascular RRR, no murmur, no edema Gastrointestinal (Abdomen) normal bowel sounds, soft, nontender, no hepatosplenomegaly Musculoskeletal no cyanosis or clubbing, extremities motor strength 5/5 Skin no rashes, warm and dry Neurologic moves all extremities and awake Psychiatric A+Ox3, euthymic affect Discharge Data Allergies Allergy/AdvReac Type Severity Reaction Status Date / Time No Known Allergies Allergy Verified 01/01/20 10:59 Consultations 01/02/20 01:29 Consult Urology Stat 01/02/20 01:33 ED Decision to Admit Stat Ordered Studies 01/01/20 22:54 US renal/blad retro comp Urgent 01/02/20 00:51 CT abd pelvis IV con only Urgent 01/03/20 10:30 US renal/blad retro comp Routine Hospital Course (1) Acute left flank pain: Acute left flank flank pain/status post removal of ureteral stent/ left subcapsular hematoma- Repeated US of hematoma - modest increase in size. Discussed with Dr. Shaw per patient's request - continue supportive measures and keep appointment to see celery stripper at [facility] in a week. Zofran 4 mg IV every 6 hours PRN Oxycodone 5-10 mg q 6h for home, acetaminophen Ceftriaxone 1 g IV daily while inpatient - UC no growth so discontinued Consulted urology - supportive measures - suspects pain is ureteral spasm, (2) Pain due to ureteral stent: See above (3) Hematoma: subcapsular/perinephric edema - will need follow up renal US in the future to ensure resolution Hgb stable (4) GERD (gastroesophageal reflux disease): Continue pantoprazole 40 mg daily. (5) Proteinuria: Sees Dr. Colin nielson and Dr. Betts at [facility]. Stable, kidney function normal Will follow up with Dr. Betts next week. (6) Diabetes mellitus: Type II, diagnosed last admission, A1c 6.6 Patient wished to try diet and exercise first to treat DMII diet, bsgs acceptable Follow up with pcp for ongoing management (7) Liver hemangioma: Incidental finding on CT - A few subtle hypodense lesions within the liver which do not represent cysts. These favor hemangiomas but are incompletely characterized on this study. follow with pcp (8) DVT prophylaxis: scd US left leg without DVT Total Time Total Time Spent Total Time Spent (In Minutes): greater than 30 minutes Discharge Plan Discharge Items Patient Disposition: Home - Self-Care Reason For Visit: RENAL COLIC Discharge Diagnosis: Renal colic Activity: Resume your previous activity Driving/Machine Use: do not drive when taking oxycodone Non-emergency contact: Primary Care Provider and Urologist Call non-emergency contact if: you have any medication questions and your symptoms worsen Follow-up/Referrals: Emiliana Raza MD [Primary Care Provider] - 01/08/20 10:40 am () Diet: Regular Addtl Attending Provider Instructions: (1) Acute left flank pain: Your ultrasound showed a subcapsular hematoma of the left kidney. There is no intervention necessary for this condition. Your kidney function has remained normal. Please keep your follow up appointment to see the celery stripper at [facility] in a week. You will go home with a prescription for oxycodone 5-10 mg every 6 hours as needed for pain. You can also take acetaminophen 1000 mg every 8 hours. Do not exceed 3,000 mg of acetaminophen in 24 hours. Avoid non steroidal anti- inflammatories (NSAIDs) like ibuprofen and naproxen as they can worsen bleeding You will will need a follow up renal US in the future to ensure resolution in six weeks (2) Liver hemangioma: Incidental finding on CT - this is a benign finding but willl need to be follo wed by your provider The ultrasound of your leg was negative for blood clot Your insurance is calling [employer] directly to authorize coverage of your oxycodone Pending Studies at Discharge: No Stand-Alone Forms: [facility] [employer], Opioid Pain Management Medications and DC Order Prescriptions: New oxycodone 5 mg tablet 5 - 10 mg PO Q6H PRN (Reason: pain) Qty: 20 RF: 0 Continued phenazopyridine [Pyridium] 200 mg tablet 200 mg PO Q8H PRN (Reason: Pain) Qty: 7 RF: 0 pantoprazole [Protonix] 40 mg tablet,delayed release (DR/EC) 40 mg PO DAILY PRN (Reason: Stomach Upset) RF: 0 tamsulosin 0.4 mg capsule 0.4 mg PO HS Qty: 30 RF: 0 oxybutynin chloride 5 mg tablet 5 mg PO BID PRN (Reason: Bladder Spasms) RF: 0 polyethylene glycol 3350 [Miralax] 17 gram Powder In Packet 17 g PO DAILY 30 Days RF: 0 docusate sodium 100 mg Capsule 100 mg PO BID 30 Days Qty: 60 RF: 0 ferrous sulfate 325 mg (65 mg iron) Tablet,Delayed Release (Dr/Ec) 325 mg PO BIDM Qty: 60 RF: 0 lisinopril 2.5 mg Tablet 2.5 mg PO QAM Qty: 30 RF: 0 ondansetron 4 mg film 4 mg PO Q8H PRN (Reason: nausea and vomiting) Qty: 10 RF: 0 Discontinued ciprofloxacin HCl 500 mg tablet 500 mg PO BID 3 Days Qty: 6 RF: 0 oxycodone-acetaminophen 5-325 mg tablet 1 tab PO Q6H PRN (Reason: pain) Qty: 7 RF: 0 Discharge Orders: Discharge Order (Routine); Ordered 01/04/20 Ordered By: Mary Mukherjee/Other Patient Handouts: Preventing Deep Vein Thrombosis Admission Data Admit Date/Time: 01/02/20 01:52 Attending Provider: Iglesia Keane Admit Provider: Sergey Cancino Primary Care Provider: Emiliana Raza Other Providers: Vamsi Rodriguez ; Sergey Cancino Other Interventions: Discharge Summary Assessment (RN) Last Done: 01/04/20 15:39 Supervising Physician Co-Signing Physician Notes Patient seen and examined on the day of discharge. I agree with the discharge summary by Mary GEIGER. I have reviewed the chart including labs, imaging and plans for discharge. patient feeling better, says she is tired and just wants to go home pain controlled with Oxycodone - Flank pain due to perinephric, subcapsular hematoma renal function and hemoglobin stable pain controlled with Oxycodone will follow up with urology and with nephrology eating well, no breathing issues, d/c to home Coding Level of Care Code D/C Day Management >30 mins Diagnoses Acute left flank pain R10.9 Pain due to ureteral stent T83.84XA Encounter type: initial encounter Hematoma T14.8XXA GERD (gastroesophageal reflux disease) K21.9 Esophagitis presence: esophagitis presence not specified Proteinuria R80.9 Diabetes mellitus E11.9 Liver hemangioma D18.03 DVT prophylaxis Z29.9
[2020-01-03] MEDS: ACETAMINOPHEN 325 MG TAB PO PRN ×2 (16:04→23:27)
--- NOTE | 2020-01-03 16:30 | Hospitalist Progress Note ---
Date of Service January 03, 2020 Assessment & Plan (1) Acute left flank pain: Acute left flank flank pain/status post removal of ureteral stent/ left subcapsular hematoma- Repeated US of hematoma - modest increase in size. Discussed with Dr. Shaw per patient's request - continue supportive measures and keep appointment to see metal refiner at [facility] in a week. Zofran 4 mg IV every 6 hours PRN Oxycodone 5-10 mg q 4h, acetaminophen Ceftriaxone 1 g IV daily while inpatient - UC no growth so will discontinue Consulted urology - supportive measures - suspects pain is ureteral spasm (2) Pain due to ureteral stent: Post removal pain - See above (3) Hematoma: As above subcapsular/perinephric edema - will need follow up renal US in the future to ensure resolution Hgb stable (4) GERD (gastroesophageal reflux disease): Continue pantoprazole 40 mg daily. (5) Proteinuria: Sees Dr. Shaw locally and Dr. Betts at [facility]. Stable, kidney function normal Discussed patient's hematoma with Dr. Shaw as above (6) Diabetes mellitus: Type II, diagnosed last admission, A1c 6.6 Patient wished to try diet and exercise first to treat DMII diet, bsgs acceptable Follow up with pcp for ongoing management (7) Liver hemangioma: Incidental finding on CT - A few subtle hypodense lesions within the liver which do not represent cysts. These favor hemangiomas but are incompletely characterized on this study. follow with pcp (8) DVT prophylaxis: scd Admission and Anticipated Discharge Date Admission Date: January 02, 2020 Subjective Ms. Ponce is having pain in left abdomen, worse today than yesterday. She is frustrated by how much pain she is having and is concerned about dealing with it at home. ROS Constitutional: no chills, aches, sweats or fever Respiratory: no sob,cough, sputum, or wheezing Cardiac: no chest pain, palpitations, edema, orthopnea or lightheadedness GI: no abdominal pain, nausea, vomiting, diarrhea or constipation : no dysuria or hesitancy Extremities: no joint pain or weakness Skin: no rash All other systems reviewed and negative Physical Exam Physical Exam: General: no distress Eyes: normal inspection, PERLL Respiratory: chest non tender, clear to auscultation, normal breath sounds, no respiratory distress, no accessory muscle use Cardiac: regular rate and rhythm, no rub or gallop, no murmur, no edema, no jvd GI/: active bowel sounds, no abd pain or tenderness, soft, non distended Extremities: normal range of motion, normal strength, non tender Neuro/Psych: alert and oriented x 3, normal mood and affect Skin: normal color, dry Results & Data Results & Data ([facility]) Vital Signs (Past 12 Hours) Vital Signs Temp Pulse Resp BP Pulse Ox 01/03/20 15:44 36.6 C 76 16 129/84 95 01/03/20 07:14 36.7 C 84 16 120/81 95 PG Care Time/CCT Total # of Minutes Spent Total Time Spent with Patient: Total time spent is greater than 50% in coordination of care (as documented) at patient's floor/unit and/or counseling patient: Coding Level of Care Code 18644 Subseq Hosp Care Lvl 3 Diagnoses Acute left flank pain R10.9 Pain due to ureteral stent T83.84XA Encounter type: initial encounter Hematoma T14.8XXA GERD (gastroesophageal reflux disease) K21.9 Esophagitis presence: esophagitis presence not specified Proteinuria R80.9 Diabetes mellitus E11.9 Liver hemangioma D18.03 DVT prophylaxis Z29.9 (1) Pain due to ureteral stent Encounter type: initial encounter Qualified Code(s): T83.84XA - Pain due to genitourinary prosthetic devices, implants and grafts, initial encounter (2) GERD (gastroesophageal reflux disease) Esophagitis presence: esophagitis presence not specified Qualified Code(s): K21.9 - Gastro-esophageal reflux disease without esophagitis
[2020-01-03] MEDS: TAMSULOSIN HCL 0.4 MG CAP PO SCH (20:46)
[2020-01-03] MEDS: cefTRIAXone SODIUM 2,000 MG in DEXTROSE 5% 50 ML IV SCH (20:48)
[2020-01-04] MEDS: ACETAMINOPHEN 325 MG TAB PO PRN ×2 (04:30→16:38)
[2020-01-04] MEDS: OXYCODONE HCL IR 5 MG TAB (IMMEDIATE RELEASE) PO PRN ×2 (04:30→16:37)
[2020-01-04] MEDS: SODIUM CHLORIDE 0.9% 1000ML 1,000 ML IV SCH (04:31)
[2020-01-04 07:15] LABS: Hematocrit (blood only) 36.5 % (37-47); Hemoglobin 11.3 g/dL (12.0-16.0); Mean Corpuscular Hemoglobin 23.6 pg (25-34); Mean Corpuscular Volume 76.4 fL (80-100); Mean Platelet Volume 9.6 fL (7.4-10.4); Platelet Count 270 K/uL (130-400); RDW Coefficient of Variation 15.5 % (11.5-14.5); RDW Standard Deviation 43.4 fL (36.4-46.3); Red Blood Count 4.78 M/uL (4.2-5.4); White Blood Count 8.75 K/uL (4.8-10.8)
[2020-01-04 07:41] LABS: BUN Creatinine Ratio 17.7 (10-20); Calcium 8.8 mg/dl (8.5-10.1); Creatinine Clr Calc Pharmacy 115.8 ml/min; Est GFR (African American) 112.4; Potassium 3.9 mmol/L (3.5-5.1)
--- NOTE | 2020-01-04 08:44 | Urology Progress Note ---
Date of Service January 04, 2020 Assessment & Plan (1) Acute left flank pain: 34 year-old female patient with multiple comorbidities admitted to the hospital with intractable left flank/abdominal pain status post left ureteral stent removal, found to have small left subcapsular renal hematoma. -Patient remains afebrile, hemodynamically stable. -Labs reviewed, creatinine stable. -Imaging reviewed and discussed in detail with patient and . -Subcapsular hematoma may be contributing to pain, ureteral spasm is likely cause. -No acute intervention indicated at this time. -Continue supportive care including hydration and pain control. -Will plan to repeat renal ultrasound in 6 weeks with outpatient follow-up with urology service at that time. -Patient and her in agreement with plan, all questions answered. Thank you for allowing us to participate in the acute care of Mrs. Ponce. Please reconsult us with additional questions, concerns or changes in patient status. Admission and Anticipated Discharge Date Admission Date: January 02, 2020 Subjective Patient examined this morning. on telephone for update as well, per her request. Does continue to have some intermittent left flank/abdominal discomfort, worse with movement. She has not had severe left flank pain since hospital admission. Pain tolerable with PO main medication. Denies dysuria or hematuria. Does have some urinary frequency. Feels she is emptying her bladder well. Denies nausea or vomiting. Denies fevers or chills. Imaging reviewed in detail with patient and her . Chart review: Afebrile Wbc 8.75 Hgb 11.3 Creatinine 0.79 Denies additional urologic concerns today. Review of Systems Constitutional: as per Subjective / HPI; no fever and no chills Gastrointestinal: as per Subjective / HPI; no nausea and no vomiting Genitourinary: as per Subjective / HPI Physical Exam Constitutional: well developed and well nourished; no acute distress and not ill appearing Respiratory: normal respiratory effort and able to speak in complete sentences; no respiratory distress and no audible wheezes Cardiovascular: Extremities: no edema Gastrointestinal (Abdomen): Inspection/Auscultation: abdomen normal to inspection; abdomen not distended Percussion/Palpation: + abdomen tender (Tenderness to left upper quadrant) and abdomen soft; no guarding Musculoskeletal: Moves all extremities without difficulty. Skin: No visible rashes, lesions, or wounds noted. Psychiatric: Orientation: alert, oriented x 3 and cooperative Affect: euthymic affect Results & Data ([facility]) Vital Signs (Past 12 Hours) Vital Signs Temp Pulse Resp BP Pulse Ox 01/04/20 07:14 36.5 C 79 18 119/81 95 01/04/20 00:00 36.6 C 84 16 128/81 94 PG Care Time/CCT Total # of Minutes Spent Total Time Spent with Patient: Total time spent is greater than 50% in coordination of care (as documented) at patient's floor/unit and/or counseling patient: Coding Level of Care Code 33773 Subseq Hosp Care Lvl 2 Diagnoses Acute left flank pain R10.9
[2020-01-04] MEDS: DOCUSATE SODIUM 100 MG CAP PO SCH (09:14)
[2020-01-04] MEDS: FERROUS SULFATE 325 MG TAB PO SCH (09:15)
[2020-01-04] MEDS: POLYETHYLENE (MIRALAX) 17 GM PACK PO SCH (09:15)
--- NOTE | 2020-01-04 14:41 | Ultrasound Report ---
US venous doppler LE LT CLINICAL HISTORY: left lower extremity edema COMPARISON STUDY: No previous studies for comparison. FINDINGS: Real-time and color flow Doppler imaging were performed. Flow was seen within the femoral, popliteal and calf veins with no intraluminal thrombus demonstrated. The saphenous vein is patent. IMPRESSION: No evidence of left lower extremity DVT. ACT 112: Negative or not required by law. Electronically signed by: Ky Nicole M.D. 01/04/2020 2:40 PM
== END 2020-01-04 19:19 | disposition home or self-care (01) ==
LOC: ED 22:39 → SUATTDRO 01-02 01:52 → INTOOBSV 01-02 01:52 → 3N 01-02 01:52
DX: T83.84XA Pain due to genitourinary prosthetic devices, implants and grafts, initial encounter; E66.01 Morbid (severe) obesity due to excess calories; R80.9 Proteinuria, unspecified; T14.8XXA Other injury of unspecified body region, initial encounter; Y73.2 Prosthetic and other implants, materials and accessory gastroenterology and urology devices associated with adverse incidents; G89.29 Other chronic pain; Z79.899 Other long term (current) drug therapy; Z87.891 Personal history of nicotine dependence; K76.9 Liver disease, unspecified; K21.9 Gastro-esophageal reflux disease without esophagitis; D18.03 Hemangioma of intra-abdominal structures; E11.9 Type 2 diabetes mellitus without complications

== ENCOUNTER 2022-07-16 11:10 | Inpatient (IN) ==
[2022-07-16] MEDS ORDERED: ONDANSETRON INJ 2 MG/ML 2 ML VIAL IV STA (11:47)
[2022-07-16 12:13] LABS: Basophils # (auto) 0.04 K/uL (0-0.2); Basophils % (auto) 0.4 %; Hematocrit (blood only) 40.6 % (37.0-47.0); Immature Granulocytes # (auto) 0.04 K/uL (0.01-0.20); Immature Granulocytes % (auto) 0.4 %; Lymphocytes # (auto) 0.77 K/uL (1.2-3.4); Lymphocytes % (auto) 7.5 %; Mean Corpuscular Hemoglobin 24.5 pg (25.0-34.0); Mean Corpuscular Volume 76.6 fL (80.0-100.0); Mean Platelet Volume 10.2 fL (9.4-12.4); Monocytes # (auto) 0.59 K/uL (0.11-0.59); Monocytes % (auto) 5.8 %; Neutrophils # (auto) 8.72 K/uL (1.40-6.50); Neutrophils % (auto) 84.9 %; Platelet Count 341 K/uL (130-400); RDW Coefficient of Variation 14.5 % (11.5-14.5); RDW Standard Deviation 39.7 fL (36.4-46.3); White Blood Count 10.26 K/ul (4.8-10.8)
[2022-07-16 12:17] LABS: Pregnancy Test, Serum Negative (Negative)
[2022-07-16] MEDS ORDERED: SODIUM CHLORIDE 0.9% 1000ML 1,000 ML IV ONE (12:17)
[2022-07-16 12:22] LABS: Albumin Globulin Ratio 1.3 (0.9-2); Albumin Level 4.1 gm/dl (3.4-5.0); BUN Creatinine Ratio 24.3 (10-20); Bilirubin,Total 0.4 mg/dl (0.2-1.0); Calcium 9.3 mg/dl (8.6-10.3); Creatinine Clr Calc Pharmacy 126.3 ml/min; Est GFR (Non-African American) 103.5 ml/min; Globulin 3.2 gm/dl (2.5-4.0); Potassium 3.9 mmol/L (3.5-5.1); Total Protein 7.3 gm/dl (6.0-8.3)
[2022-07-16] MEDS ORDERED: MoRPHine SULFATE 4 MG/ML 1 ML CARP\\VIAL IV STA (12:25)
--- NOTE | 2022-07-16 12:31 | Emergency Department Note ---
Impression & Plan Colitis, Abdominal pain, LLQ, Bloody diarrhea ED Provider Note Provider: Jacob Fisher MD DATE OF SERVICE: 07/16/2022 CHIEF COMPLAINT: Abdominal pain left-sided, nausea, bloody stools HISTORY OF PRESENT ILLNESS: Patient is a 36-year-old female past medical history of GERD, diabetes and obesity on [place] for several months presenting here with onset over the last 2 to 3 days of nausea and diarrhea. This morning however have episode of sean bloody stools and developed some left-sided abdominal discomfort slight radiation to the back. Does not really on legs. No trauma. No sick contact or travel. Denies chest pain or shortness of breath but states she feels dehydrated and thirsty. Denies true dizziness or any headache. Has been using some Zofran at home which helped a little bit with the nausea. Has had some flares of diverticulitis in the past and has been in contact with [facility] who referred here today. Scheduled for her first colonoscopy in October at this time. No use of blood thinners reported. Did later this morning started her menstrual cycle as well but states the bleeding was clearly from her stool earlier today. PAST MEDICAL HISTORY: As noted above and prior tubal ligation MEDICATIONS: Reviewed home medications does not include blood thinners SOCIAL HISTORY: Lives at home with 2 children and PHYSICAL EXAM: GENERAL: alert and oriented in no acute distress on stretcher somewhat fatigued in appearance Head: normocephalic and atraumatic EYES: No injection, discharge or icterus. PERRL, EOMI. NECK: Trachea midline. Supple. ENT: Mucous membranes pink and somewhat dry LUNGS: Airway patent. No retractions. Breath sounds clear with good air entry bilaterally. HEART: Regular rate and rhythm. No chest wall tenderness ABDOMEN: Soft good tenderness in the left lower quadrant trace to the left flank but no left CVA tenderness. No right-sided abdominal tenderness. SKIN: Acyanotic, warm, dry, without rashes EXTREMITIES: Without swelling, tenderness or deformity NEUROLOGICAL: No focal deficits. No aphasia. No facial droop or slurred speech. Ambulatory. Patient's laboratory studies and imaging reviewed. Differential includes Appendicitis, ovarian cyst, ovarian torsion, ectopic , TOA, PID, infections, diverticulitis, UTI, obstruction, mesenteric ischemia, aortic pathology, inflammatory bowel disease, renal colic, PUD, pancreatitis, biliary pathology, hernia, as well as other pathologies. IMPRESSION/MEDICAL DECISION MAKING: Patient with 2 days of diarrhea and nausea and now transitioning to bloody diarrhea with increased pain in left lower quadrant. History of diverticulitis reported. No trauma history. Does have a history of urine infections as well. Sent for CT scan and basic blood work obtained. Treated symptomatically with IV Zofran, morphine, and fluid. Denies dizziness or headache or other neurological symptoms. No recent travel. Denies significant sick contacts. Blood work here without anemia but microcytosis noted with MCV of 76. Normal platelet count. White blood cell count normal at 10.26. No significant electrolyte abnormality or signs of renal dysfunction. No evidence of transaminitis/hepatitis or pancreatitis based on labs. Negative test. Urinalysis sent. CT scan shows diffuse colonic thickening most pronounced at the rectum concerning for proctocolitis as well as possibly some slight dilation of the appendix at 11 mm just at the tip. Diverticulitis is less likely but not excluded with a resolving old left kidney subcapsular hematoma. Discussed with the general surgery team however the patient's pain does not seem that consistent with appendicitis. Discussed with the general surgery PA who will evaluate the patient. At this time empirically given Zosyn given the findings in case there is some component of diverticulitis. Discussed with the patient. Again does not appear septic or in shock. Given her bleeding and symptoms with multiple doses of pain medicine disgusting for further evaluation here. Hospitalist contacted. Stool testing sample pending for PCR. DIAGNOSIS: Bloody diarrhea, left lower quadrant abdominal pain, proctocolitis DISPOSITION: Hospitalist will evaluate as well as general surgery Patient was agreeable with this plan. Past Med/Surg History Medical History (Updated 07/16/22 @ 17:13 by Andreia Andino PA-C) Acute flank pain Asymptomatic bacteriuria Asymptomatic microscopic hematuria Asymptomatic proteinuria Blood in urine found in u/a Blood pressure elevated without history of HTN DVT prophylaxis Flank pain GERD (gastroesophageal reflux disease) Gestational diabetes mellitus (GDM) in third trimester HTN (hypertension) Intractable pain Morbid obesity Nephrotic syndrome Proteinuria DR. SETHI [employer]GER Type 2 diabetes mellitus Surgical History Hx of tubal ligation Hx of wisdom tooth extraction NO ANESTHESIA USED/ONLY NOVOCAINE Family History Father Family history of diabetes mellitus Brother Family history of diabetes mellitus Grandfather (Maternal) Family history of diabetes mellitus Denies family history of Ovarian cancer Prostate cancer Myocardial infarction Breast cancer Colorectal cancer Social History Smoking Status: Former smoker Second Hand Exposure: No; Hx Alcohol Use: No Hx Substance Use: No Preferred Language: Cymraes Communication Ability: Effective 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 Beliefs That Will Affect Care: None marital status: Current Living Situation: Spouse Feels Safe at Home: Yes Safety Concerns: Feels Safe At This Time Assistive Devices: None Allergies Allergies Allergy/AdvReac Type Severity Reaction Status Date / Time No Known Allergies Allergy Verified 01/01/20 10:59 Home Meds Home Medications Medication Instructions Recorded Confirmed lisinopril 20 1 tab PO DAILY 07/16/22 07/16/22 mg-hydrochlorothiazide 12.5 mg tablet metformin 500 mg tablet 500 mg PO DAILY 07/16/22 07/16/22 ondansetron HCl 4 mg tablet 4 mg PO Q8H PRN Nausea 07/16/22 07/16/22 semaglutide (weight loss) 0.5 0.5 mg subcut WK 07/16/22 07/16/22 mg/0.5 mL subcutaneous pen injector (Wegovy) Results & Data (ED) Vital Signs Vital Signs - 24 hr 07/16/22 11:19 07/16/22 12:34 07/16/22 13:53 Temperature 36.5 C Temperature Source Temporal Artery Scan Pulse Rate 96 H Pulse Rate [Apical] 88 78 Respiratory Rate 20 14 14 Respiratory Effort / Characteristics Non-Labored Blood Pressure 142/91 H Blood Pressure [Left Arm] 142/100 H 122/83 Blood Pressure Mean 108 Blood Pressure Mean [Left Arm] 114 96 Pulse Oximetry 96 98 99 Oxygen Delivery Method Room Air Room Air Room Air Sepsis Recent Fever Within 48 Hours No Sepsis New/Unexplained Change in Mental Status N/A Sepsis Action Taken by Nursing No Action Required Laboratory Data 07/16/22 11:32 07/16/22 11:32 Lab Results 07/16/22 07/16/22 07/16/22 Range/Units 11:32 11:32 11:32 WBC 10.26 (4.8-10.8) K/ul RBC 5.30 (4.20-5.40) M/uL Hgb 13.0 (12.0-16.0) g/dl Hct 40.6 (37.0-47.0) % MCV 76.6 L (80.0-100.0) fL MCH 24.5 L (25.0-34.0) pg MCHC 32.0 (32.0-36.0) g/dL RDW Std Deviation 39.7 (36.4-46.3) fL RDW Coeff of Amrit 14.5 (11.5-14.5) % Plt Count 341 (130-400) K/uL MPV 10.2 (9.4-12.4) fL Immature Gran % (Auto) 0.4 % Neut % (Auto) 84.9 % Lymph % (Auto) 7.5 % [place] % (Auto) 5.8 % Eos % (Auto) 1.0 % Baso % (Auto) 0.4 % Neut # (Auto) 8.72 H (1.40-6.50) K/uL Lymph # (Auto) 0.77 L (1.2-3.4) K/uL [place] # (Auto) 0.59 (0.11-0.59) K/uL Eos # (Auto) 0.10 (0-0.50) K/uL Baso # (Auto) 0.04 (0-0.2) K/uL Immature Gran # (Auto) 0.04 (0.01-0.20) K/uL Sodium 135 L (136-145) mmol/L Potassium 3.9 (3.5-5.1) mmol/L Chloride 102 (98-107) mmol/L Carbon Dioxide 26 (21-32) mmol/L Anion Gap 7 (3-11) BUN 18 (6-23) mg/dl Creatinine 0.74 (0.6-1.2) mg/dl Est Cr Clr Drug Dosing 126.3 ml/min Est GFR ( Amer) 120.0 ml/min Est GFR (Non-Af Amer) 103.5 ml/min BUN/Creatinine Ratio 24.3 H (10-20) Glucose 109 H (70-99(Fasting)) mg/dl Calcium 9.3 (8.6-10.3) mg/dl Total Bilirubin 0.4 (0.2-1.0) mg/dl AST 12 L (13-39) U/L ALT 15 (7-52) U/L Alkaline Phosphatase 73 (34-104) U/L C-Reactive Protein 2.09 H (0-0.5) mg/dl Total Protein 7.3 (6.0-8.3) gm/dl Albumin 4.1 (3.4-5.0) gm/dl Globulin 3.2 (2.5-4.0) gm/dl Albumin/Globulin Ratio 1.3 (0.9-2) Lipase 20 (11-82) U/L HCG, Qual Negative (Negative) Urine Color Urine Appearance (Clear) Urine pH (4.5-7.5) Ur Specific [place] (1.000-1.030) Urine Protein (Negative) Urine Glucose (UA) (Negative) Urine Ketones (Negative) Urine Blood (Negative) Urine Nitrite (Negative) Urine Bilirubin (Negative) Urine Urobilinogen (Negative) Ur Leukocyte Esterase (Negative) Urine RBC (0-4) /hpf Urine WBC (0-5) /hpf Ur Epithelial Cells (0-5) /lpf Urine Bacteria (Negative) SARS-CoV-2, RNA, NAAT (NEGATIVE) 07/16/22 07/16/22 Range/Units 13:27 13:50 WBC (4.8-10.8) K/ul RBC (4.20-5.40) M/uL Hgb (12.0-16.0) g/dl Hct (37.0-47.0) % MCV (80.0-100.0) fL MCH (25.0-34.0) pg MCHC (32.0-36.0) g/dL RDW Std Deviation (36.4-46.3) fL RDW Coeff of Amrit (11.5-14.5) % Plt Count (130-400) K/uL MPV (9.4-12.4) fL Immature Gran % (Auto) % Neut % (Auto) % Lymph % (Auto) % [place] % (Auto) % Eos % (Auto) % Baso % (Auto) % Neut # (Auto) (1.40-6.50) K/uL Lymph # (Auto) (1.2-3.4) K/uL [place] # (Auto) (0.11-0.59) K/uL Eos # (Auto) (0-0.50) K/uL Baso # (Auto) (0-0.2) K/uL Immature Gran # (Auto) (0.01-0.20) K/uL Sodium (136-145) mmol/L Potassium (3.5-5.1) mmol/L Chloride (98-107) mmol/L Carbon Dioxide (21-32) mmol/L Anion Gap (3-11) BUN (6-23) mg/dl Creatinine (0.6-1.2) mg/dl Est Cr Clr Drug Dosing ml/min Est GFR ( Amer) ml/min Est GFR (Non-Af Amer) ml/min BUN/Creatinine Ratio (10-20) Glucose (70-99(Fasting)) mg/dl Calcium (8.6-10.3) mg/dl Total Bilirubin (0.2-1.0) mg/dl AST (13-39) U/L ALT (7-52) U/L Alkaline Phosphatase (34-104) U/L C-Reactive Protein (0-0.5) mg/dl Total Protein (6.0-8.3) gm/dl Albumin (3.4-5.0) gm/dl Globulin (2.5-4.0) gm/dl Albumin/Globulin Ratio (0.9-2) Lipase (11-82) U/L HCG, Qual (Negative) Urine Color Red Urine Appearance Slightly Cloudy (Clear) Urine pH 5.5 (4.5-7.5) Ur Specific [place] 1.025 (1.000-1.030) Urine Protein 3+ H (Negative) Urine Glucose (UA) Negative (Negative) Urine Ketones Negative (Negative) Urine Blood 3+ H (Negative) Urine Nitrite Negative (Negative) Urine Bilirubin 1+ H (Negative) Urine Urobilinogen Negative (Negative) Ur Leukocyte Esterase Negative (Negative) Urine RBC >30 H (0-4) /hpf Urine WBC 5-10 H (0-5) /hpf Ur Epithelial Cells 10-20 H (0-5) /lpf Urine Bacteria 1+ H (Negative) SARS-CoV-2, RNA, NAAT NEGATIVE (NEGATIVE) Administered Medications Acetaminophen (Acetaminophen 500 Mg Tab) 1,000 mg PO Q8H LIZ Stop: 08/15/22 15:59 Last Admin: 07/16/22 16:30 Dose: 1,000 mg Documented By: PACO Discontinued Medications Hydromorphone HCl (Hydromorphone Inj 0.5 Mg/0.5 Ml Syr) 0.5 mg IV NOW STA Stop: 07/16/22 13:27 Last Admin: 07/16/22 13:29 Dose: 0.5 mg Documented By: PACO Sodium Chloride (Nss 1000ml) 1,000 mls @ 999 mls/hr IV .Q1H1M ONE Stop: 07/16/22 13:17 Last Infusion: 07/16/22 13:32 Dose: 0 mls/hr Documented By: Admin: 07/16/22 12:31 Dose: 999 mls/hr Documented By: PACO Piperacillin Sod/Tazobactam Sod (Zosyn) 4.5 gm in 120 mls @ 240 mls/hr IV NOW ONE Stop: 07/16/22 15:10 Last Infusion: 07/16/22 15:33 Dose: 0 mls/hr Documented By: Admin: 07/16/22 15:03 Dose: 240 mls/hr Documented By: PACO Ioversol (Optiray 350 100ml) 88 ml IV ONCE ONE Stop: 07/16/22 13:05 Last Admin: 07/16/22 13:05 Dose: 88 ml Documented By: PHILLIP Morphine Sulfate (Morphine Sulfate 4 Mg/Ml 1 Ml Carp\Vial) 4 mg IV NOW STA Stop: 07/16/22 12:26 Last Admin: 07/16/22 12:32 Dose: 4 mg Documented By: PACO Ondansetron HCl (Ondansetron Inj 2 Mg/Ml 2 Ml Vial) 4 mg IV NOW STA Stop: 07/16/22 11:48 Last Admin: 07/16/22 12:11 Dose: 4 mg Documented By: MARIJA Imaging Data Radiologist's Impression: Abdomen/Pelvis CT 07/16/22 12:[address] WITH IV CONTRAST CT DOSE: 1076.26 mGycm HISTORY: Left-sided abdominal pain, bloody stool, nausea TECHNIQUE: Multiaxial CT images of the abdomen and pelvis were performed following the use of intravenous contrast. A dose lowering technique was utilized adhering to the principles of ALARA. COMPARISON STUDY: Abdomen and pelvis CT 01/02/2020. FINDINGS: The lung bases are clear. No pneumoperitoneum. No pneumatosis. No acute fractures identified. There are few subcentimeter hypodense lesions within the liver which are too small to characterize but remain stable and favor cysts. There are few additional subtle hypodense lesions within the liver with the largest in the right hepatic lobe measuring 2.3 cm. These are also stable and favor hemangiomas. The main portal vein is patent. The gallbladder, spleen, adrenal glands, and pancreas are unremarkable. Normal right kidney. Stable 9 mm hypodense lesion within the upper pole of the left kidney likely representing a cyst. No hydronephrosis. There is a tiny residual old subcapsular hematoma remaining within the left kidney best in image 163 measuring 6 mm in thickness. This has decreased in size. No acute subcapsular hematoma identified. No retroperitoneal lymphadenopathy. Normal caliber abdominal aorta. No pelvic lymphadenopathy or pelvic free fluid. The bladder, uterus, and ovaries are unremarkable. There is minimal inflammatory change versus a normal vessels adjacent to a few diverticula within the descending colon best seen on image 288. Mild diffuse thickening throughout of the majority colon most pronounced within the rectum. The tip the appendix is best seen image 372 and measures up to 11 mm in diameter. There is questionable minimal inflammatory change adjacent to the tip the appendix. IMPRESSION: 1. Mild diffuse thickening throughout the majority of the colon most pronounced within the rectum. This favors a mild proctocolitis. 2. The tip of the appendix measures up to 11 mm and there is question of minimal adjacent inflammatory change. An early acute tip appendicitis is not excluded. Surgical consultation recommended. 3. Minimal inflammatory change versus the normal vessels adjacent to a few diverticula within the descending colon. An acute diverticulitis is considered less likely but not entirely excluded. 4. Tiny residual old subcapsular hematoma within the left kidney which has decreased in size. 5. Additional findings as described above. ACT 112: Negative or not required by law. Electronically signed by: Adalberto Nguyen M.D. 07/16/2022 1:26 PM Discharge Plan Visit Data Chief Complaint: Urinary Symptoms Stated Complaint: BLOOD WHEN PEEING, FLANK PAIN ED Provider: Jacob Fisher Discharge Problem: Colitis, Abdominal pain, LLQ, Bloody diarrhea Patient Disposition: Admitted As Inpatient Discharge Instructions Interventions: ED Discharge Assessment Last Done: 07/16/22 17:19
[2022-07-16 12:57] LABS: C Reactive Protein 2.09 mg/dl (0-0.5)
[2022-07-16] MEDS ORDERED: OPTIRAY 350 100ml IV ONE (13:04)
[2022-07-16] MEDS ORDERED: HYDROmorphone INJ 0.5 MG/0.5 ML SYR IV STA (13:26)
--- NOTE | 2022-07-16 13:28 | CT Scan Report ---
ABDOMEN AND PELVIS CT WITH IV CONTRAST CT DOSE: 1076.26 mGycm HISTORY: Left-sided abdominal pain, bloody stool, nausea TECHNIQUE: Multiaxial CT images of the abdomen and pelvis were performed following the use of intrave nous contrast. A dose lowering technique was utilized adhering to the principles of ALARA. COMPARISON STUDY: Abdomen and pelvis CT 01/02/2020. FINDINGS: The lung bases are clear. No pneumoperitoneum. No pneumatosis. No acute fractures identifie d. There are few subcentimeter hypodense lesions within the liver which are too small to characterize but remain stable and favor cysts. There are few additional subtle hypodense lesions within the live r with the largest in the right hepatic lobe measuring 2.3 cm. These are also stable and favor artem iomas. The main portal vein is patent. The gallbladder, spleen, adrenal glands, and pancreas are unre markable. Normal right kidney. Stable 9 mm hypodense lesion within the upper pole of the left kidney likely representing a cyst. No hydronephrosis. There is a tiny residual old subcapsular hematoma tracy ining within the left kidney best in image 163 measuring 6 mm in thickness. This has decreased in siz e. No acute subcapsular hematoma identified. No retroperitoneal lymphadenopathy. Normal caliber abdom inal aorta. No pelvic lymphadenopathy or pelvic free fluid. The bladder, uterus, and ovaries are unre markable. There is minimal inflammatory change versus a normal vessels adjacent to a few diverticula within the descending colon best seen on image 288. Mild diffuse thickening throughout of the majorit y colon most pronounced within the rectum. The tip the appendix is best seen image 372 and measures u p to 11 mm in diameter. There is questionable minimal inflammatory change adjacent to the tip the ranjan endix. IMPRESSION: 1. Mild diffuse thickening throughout the majority of the colon most pronounced within the rectum. Th is favors a mild proctocolitis. 2. The tip of the appendix measures up to 11 mm and there is question of minimal adjacent inflammator y change. An early acute tip appendicitis is not excluded. Surgical consultation recommended. 3. Minimal inflammatory change versus the normal vessels adjacent to a few diverticula within the carol cending colon. An acute diverticulitis is considered less likely but not entirely excluded. 4. Tiny residual old subcapsular hematoma within the left kidney which has decreased in size. 5. Additional findings as described above. ACT 112: Negative or not required by law. Electronically signed by: Adalberto Nguyen M.D. 07/16/2022 1:26 PM
[2022-07-16 13:58] LABS: Appearance Urine Slightly Cloudy (Clear); Bilirubin Urine 1+ (Negative); Blood Urine 3+ (Negative); Color Urine Red; Glucose Urine UA Negative (Negative); Ketones Urine Negative (Negative); Leukocyte Esterase Urine Negative (Negative); Nitrite Urine Negative (Negative); Protein Urine 3+ (Negative); Specific Gravity Urine 1.025 (1.000-1.030); Urobilinogen Urine Negative (Negative); pH Urine 5.5 (4.5-7.5)
[2022-07-16 14:17] LABS: RBC Urine >30 /hpf (0-4)
[2022-07-16 14:18] LABS: Bacteria Urine 1+ (Negative)
[2022-07-16] MEDS ORDERED: PIPERACILLIN/TAZOBACTAM 4.5 GM/120 ML BAG IV ONE (14:41)
--- NOTE | 2022-07-16 15:01 | Surgery Consultation ---
Date of Consultation July 16, 2022 Assessment & Plan (1) Acute left flank pain: This is a 36yF with a PMH of GERD, DM, LUCILA who presents to the [facility] ED on 07/16/22 with complaints of nausea, left sided abdominal pain, and some blood in her stool. Nausea has been present over the last couple of weeks, but she woke up this AM with new pain in the L side of her abdomen and bloody BM. She called her GI doctor's office who referred her to come to the ER for further evaluation as she has history of diverticulitis. In the ED she underwent a CT a/p that revealed mild diffuse thickening throughout the majority of the colon most pronounced within the rectum, favoring a mild proctocolitis. It also showed the tip of the appendix measures up to 11 mm and there is question of minimal adjacent inflammatory change, and cannot rule out an early acute tip appendicitis. WBC 10. Vital signs are stable. On examination patient's abdomen is soft, non distended, with tenderness to palpation in the LLQ and mildly in the LUQ. She has no pain in the R side of abdomen [id number]. Do not believe her symptoms correlate with acute appendicitis at this time. She likely is dealing with evidence of procto-colitis. From our standpoint she may have clear liquids and see how she fairs. No abx from our standpoint for questionable appendicitis. We will check on patient again tomorrow. May benefit from GI consult. Supervising Physician Co-Signing Physician Notes I personally saw and evaluated the patient with Analilia Ramos PA-C and agree with the assessment and plan 36-year-old female with colitis and CT findings of questionable tip appendicitis CT images and results were personally reviewed by myself, she has no appreciable inflammation in the right lower quadrant around the appendix with mild dilation of the tip of the appendix On physical exam she has all left-sided abdominal pain and no tenderness in the right lower quadrant, her history also does not fit with appendicitis based on several days of symptoms I think her main issue with her bloody diarrhea is her colitis If she is being admitted to the hospital, we will follow for any worsening/localizing right lower quadrant pain No plans for any surgical intervention at this time No need for antibiotics from a surgical standpoint We will follow History of Present Illness History of Present Illness This is a 36yF with a PMH of GERD, DM, LUCILA who presents to the [facility] ED on 07/16/22 with complaints of nausea, left sided abdominal pain, and some blood in her stool. Patient states she has been nauseated over the course of the last couple weeks, but that this has correlated with her starting a new medication- Wegovy. She also has been dealing with some diarrhea. Starting this AM she woke up with pain in the L side of her abdomen and noticed when she had a BM there was some blood noticed in it. She called her GI doctor's office who referred her to come to the ER for further evaluation. In the ED she underwent a CT a/p that revealed mild diffuse thickening throughout the majority of the colon most pronounced within the rectum, favoring a mild proctocolitis. It also showed the tip of the appendix measures up to 11 mm and there is question of minimal adjacent inflammatory change, and cannot rule out an early acute tip appendicitis. Patient denies any pain in the RLQ. She reports having pain like this before, but not to this severity. Past surgical history includes a tubal ligation. Allergies Allergy/AdvReac Type Severity Reaction Status Date / Time No Known Allergies Allergy Verified 01/01/20 10:59 Home Medications Medication Instructions Recorded Confirmed Type lisinopril 2.5 mg tablet 2.5 mg PO QAM #30 tabs 03/04/20 Rx ondansetron 4 mg disintegrating 4 - 8 mg PO Q8H PRN nausea and 10/20/21 Rx tablet vomiting #14 tabs Patient History Medical History Acute flank pain Asymptomatic bacteriuria Asymptomatic microscopic hematuria Asymptomatic proteinuria Blood in urine found in u/a Blood pressure elevated without history of HTN DVT prophylaxis Flank pain GERD (gastroesophageal reflux disease) Gestational diabetes mellitus (GDM) in third trimester Intractable pain Morbid obesity Nephrotic syndrome Proteinuria DR. 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[employer]TER Surgical History Hx of tubal ligation Hx of wisdom tooth extraction NO ANESTHESIA USED/ONLY NOVOCAINE Family History Father Family history of diabetes mellitus Brother Family history of diabetes mellitus Grandfather (Maternal) Family history of diabetes mellitus Denies family history of Ovarian cancer Prostate cancer Myocardial infarction Breast cancer Colorectal cancer Social History Smoking Status: Never smoker Second Hand Exposure: No; Hx Alcohol Use: No Hx Substance Use: No Preferred Language: [place] Islander Communication Ability: Effective Custom Furrier Required: No Beliefs That Will Affect Care: None marital status: Current Living Situation: Family Feels Safe at Home: Yes Assistive Devices: None Review of Systems Constitutional: no fever and no chills Respiratory: no cough and no dyspnea Cardiovascular: no chest pain Gastrointestinal: + abdominal pain (LLQ), + nausea, + diarrhea/loose stools and + blood in stools; no vomiting Physical Exam Physical Exam: awake/alert, no distress Constitutional: well developed and well nourished; no acute distress Respiratory: normal respiratory effort Cardiovascular: Rate/Rhythm: regular rate and regular rhythm Gastrointestinal (Abdomen): Inspection/Auscultation: abdomen not distended Percussion/Palpation: + abdomen tender (LLQ abdominal pain to palpation) and abdomen soft Results & Data Vital Signs (Past 12 Hours) Vital Signs Temp Pulse Pulse Resp BP BP Pulse Ox 07/16/22 13:53 78 14 122/83 99 07/16/22 12:34 88 14 142/100 H 98 07/16/22 11:19 36.5 C 96 H 20 142/91 H 96 O2 Del Method 07/16/22 13:53 Room Air 07/16/22 12:34 Room Air 07/16/22 11:19 Room Air Diagnostic Findings ABDOMEN AND PELVIS CT WITH IV CONTRAST CT DOSE: 1076.26 mGycm HISTORY: Left-sided abdominal pain, bloody stool, nausea TECHNIQUE: Multiaxial CT images of the abdomen and pelvis were performed following the use of intravenous contrast. A dose lowering technique was utilized adhering to the principles of ALARA. COMPARISON STUDY: Abdomen and pelvis CT 01/02/2020. FINDINGS: The lung bases are clear. No pneumoperitoneum. No pneumatosis. No acute fractures identified. There are few subcentimeter hypodense lesions within the liver which are too small to characterize but remain stable and favor cysts. There are few additional subtle hypodense lesions within the liver with the largest in the right hepatic lobe measuring 2.3 cm. These are also stable and favor hemangiomas. The main portal vein is patent. The gallbladder, spleen, adrenal glands, and pancreas are unremarkable. Normal right kidney. Stable 9 mm hypodense lesion within the upper pole of the left kidney likely representing a cyst. No hydronephrosis. There is a tiny residual old subcapsular hematoma remaining within the left kidney best in image 163 measuring 6 mm in thickness. This has decreased in size. No acute subcapsular hematoma identified. No retroperitoneal lymphadenopathy. Normal caliber abdominal aorta. No pelvic lymphadenopathy or pelvic free fluid. The bladder, uterus, and ovaries are unremarkable. There is minimal inflammatory change versus a normal vessels adjacent to a few diverticula within the descending colon best seen on image 288. Mild diffuse thickening throughout of the majority colon most pronounced within the rectum. The tip the appendix is best seen image 372 and measures up to 11 mm in diameter. There is questionable minimal inflammatory change adjacent to the tip the appendix. IMPRESSION: 1. Mild diffuse thickening throughout the majority of the colon most pronounced within the rectum. This favors a mild proctocolitis. 2. The tip of the appendix measures up to 11 mm and there is question of minimal adjacent inflammatory change. An early acute tip appendicitis is not excluded. Surgical consultation recommended. 3. Minimal inflammatory change versus the normal vessels adjacent to a few diverticula within the descending colon. An acute diverticulitis is considered less likely but not entirely excluded. 4. Tiny residual old subcapsular hematoma within the left kidney which has decr eased in size. 5. Additional findings as described above. ACT 112: Negative or not required by law. Electronically signed by: Adalberto Nguyen M.D. 07/16/2022 1:26 PM PG Care Time/CCT Total # of Minutes Spent Total Time Spent with Patient: Total time spent is greater than 50% in coordination of care (as documented) at patient's floor/unit and/or counseling patient: Coding Level of Care Code 15416 IN/OBS CONSULT LVL 3,45M Diagnoses Acute left flank pain R10.9
--- NOTE | 2022-07-16 15:11 | History & Physical Report ---
Date of Service July 16, 2022 Assessment & Plan (1) Proctocolitis: Plan: This is a 36-year-old female with PMH of type 2 diabetes, hypertension, obesity on Wegovy who presents with 2 days of nausea and diarrhea found to have findings on imaging consistent with proctocolitis. N/V, bloody bowel movement this morning prior to arrival VSS, hgb stable at 13, BUN 24, Cr 0.74 Recently began following with GI due to h/o intermittent bloody bowel mvmts over past few months, mom with h/o Crohn's, due for colonoscopy in October Routine GI consult, continue pain control, antiemetics, clears for now and NPO at ME, stool cultures ordered Received empiric abx in ED, no indication to continue for now (2) Abnormal CT of the abdomen: Plan: CT a/p with mention of tip of appendix measuring up to 11 mm and there was question of minimal adjacent inflammatory change, could not rule out early acute appendicitis Patient afebrile, no leukocytosis, vital signs stable. General surgery evaluated and found abdominal exam does not be consistent with appendicitis that she has no pain in right side of abdomen Feel that clinical presentation and abdominal exam more consistent with proctocolitis. Agree with antibiotics, recommend GI consult Gen surg to follow along while admitted for any worsening/localizing of right lower quadrant pain (3) Type 2 diabetes mellitus: Plan: A1c improved to 6.4 this month, following with wt loss and nutrition as outpatient, on Wegovy for a few months. Monitor BSG on daily BMP, carb consistent diet, hold Metformin while admitted Agreed to reassess need for SQ insulin while admitted. BSG 109 (4) HTN (hypertension): Plan: Lisinopril-hctz at home. Will hold hctz for now but continued lisinopril DVT Ppx: SCDs Code status: FULL PCP: Phoebe Dispo: Admitted to med/surg Patient seen in collaboration with Dr. Trevino. Please see addendum. I spent a total of 70 minutes coordinating, documenting, and providing care for this patient excluding time spent in the performance of separately billed services. History of Present Illness Chief Complaint: Bloody diarrhea, belly pain Primary Care Provider: Cristhian Sandhu MD This is a 36-year-old female with PMH of type 2 diabetes, hypertension, obesity on Wegovy who presents with 2 days of nausea, vomiting and diarrhea that felt like a stomach bug. Diarrhea became bloody in nature earlier today with associated abdominal discomfort. Describes belly pain as left lower abdominal pain that is radiating towards her back. Called GI office as she is dealt with episodes of diverticulitis in the past, and they encouraged her to come to ED for further evaluation. Also states she has had intermittent bloody bowel move ments over the past few months, which is why she established with GI in the first place. Mother with history of Crohn's. Patient is scheduled for her first colonoscopy this coming October. Denies any fever, chills or vomiting. No headache, chest pain, shortness of breath, dysuria or constipation. Did start her period earlier today. Is not on any blood thinners. Allergies Allergy/AdvReac Type Severity Reaction Status Date / Time No Known Allergies Allergy Verified 01/01/20 10:59 Home Medications Medication Instructions Recorded Confirmed Type lisinopril 20 1 tab PO DAILY 07/16/22 07/16/22 History mg-hydrochlorothiazide 12.5 mg tablet metformin 500 mg tablet 500 mg PO DAILY 07/16/22 07/16/22 History ondansetron HCl 4 mg tablet 4 mg PO Q8H PRN Nausea 07/16/22 07/16/22 History semaglutide (weight loss) 0.5 0.5 mg subcut WK 07/16/22 07/16/22 History mg/0.5 mL subcutaneous pen injector (Wegovy) Past Med/Surg History Medical History (Updated 07/16/22 @ 17:13 by Andreia Andino PA-C) Acute flank pain Asymptomatic bacteriuria Asymptomatic microscopic hematuria Asymptomatic proteinuria Blood in urine found in u/a Blood pressure elevated without history of HTN DVT prophylaxis Flank pain GERD (gastroesophageal reflux disease) Gestational diabetes mellitus (GDM) in third trimester HTN (hypertension) Intractable pain Morbid obesity Nephrotic syndrome Proteinuria 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 Type 2 diabetes mellitus Surgical History Hx of tubal ligation Hx of wisdom tooth extraction NO ANESTHESIA USED/ONLY NOVOCAINE Family History Father Family history of diabetes mellitus Brother Family history of diabetes mellitus Grandfather (Maternal) Family history of diabetes mellitus Denies family history of Ovarian cancer Prostate cancer Myocardial infarction Breast cancer Colorectal cancer Social History Smoking Status: Former smoker Second Hand Exposure: No; Hx Alcohol Use: No Hx Substance Use: No Preferred Language: Kosovan Communication Ability: Effective Binding End Stitcher Required: No Beliefs That Will Affect Care: None marital status: Current Living Situation: Spouse Feels Safe at Home: Yes Safety Concerns: Feels Safe At This Time Assistive Devices: None Review of Systems Review of Systems: At least ten systems reviewed and negative except as noted in the HPI. Physical Exam Physical Exam: General Appearance: WD/WN, vitals as above, NAD, sitting up in bed, pleasant, conversing easily, obese Head: normocephalic, atraumatic Eyes: normal inspection, PERRL, conjunctivae normal, anicteric sclerae ENT: external ear and nose normal, oropharynx normal Neck: normal visual inspection, trachea midline, no thyromegaly Respiratory: normal respiratory effort, lungs clear to auscultation, no wheeze, rales, rhonchi. No accessory muscle use Cardiovascular: regular rate, rhythm, no murmur, normal peripheral pulses, no BLE edema. Vessels: no JVD Chest: normal inspection of chest Abdomen/GI: normal bowel sounds, soft, LLQ TTP, no hepatosplenomegaly Extremities/Musculoskeletal: no cyanosis or clubbing, extremities motor strength 5/5 Neurologic: PERRL, EOMI, accommodation nl, no face palsy, no dysarthria, CN's II-XI intact bilaterally and moves all extremities Psychiatric: A+Ox3, euthymic affect Skin: no rashes, normal color, warm/dry Results & Data Results & Data Vital Signs (Past 12 Hours) Vital Signs Temp Pulse Pulse Resp BP BP Pulse Ox 07/16/22 13:53 78 14 122/83 99 07/16/22 12:34 88 14 142/100 H 98 07/16/22 11:19 36.5 C 96 H 20 142/91 H 96 O2 Del Method 07/16/22 13:53 Room Air 07/16/22 12:34 Room Air 07/16/22 11:19 Room Air Laboratory Results Short CBC 07/16/22 Range/Units 11:32 WBC 10.26 (4.8-10.8) K/ul Hgb 13.0 (12.0-16.0) g/dl Hct 40.6 (37.0-47.0) % Plt Count 341 (130-400) K/uL BMP 07/16/22 11:32 Sodium 135 L Potassium 3.9 Chloride 102 Carbon Dioxide 26 BUN 18 Creatinine 0.74 Glucose 109 H Calcium 9.3 Liver Function 07/16/22 Range/Units 11:32 Total Bilirubin 0.4 (0.2-1.0) mg/dl AST 12 L (13-39) U/L ALT 15 (7-52) U/L Alkaline Phosphatase 73 (34-104) U/L Albumin 4.1 (3.4-5.0) gm/dl Urine 07/16/22 Range/Units 13:27 Urine Color Red Urine Appearance Slightly Cloudy (Clear) Urine pH 5.5 (4.5-7.5) Ur Specific [place] 1.025 (1.000-1.030) Urine Protein 3+ H (Negative) Urine Glucose (UA) Negative (Negative) Diagnostic Findings Abdomen/Pelvis CT 07/16/22 12:[address] WITH IV CONTRAST CT DOSE: 1076.26 mGycm HISTORY: Left-sided abdominal pain, bloody stool, nausea TECHNIQUE: Multiaxial CT images of the abdomen and pelvis were performed following the use of intravenous contrast. A dose lowering technique was utilized adhering to the principles of ALARA. COMPARISON STUDY: Abdomen and pelvis CT 01/02/2020. FINDINGS: The lung bases are clear. No pneumoperitoneum. No pneumatosis. No acute fractures identified. There are few subcentimeter hypodense lesions within the liver which are too small to characterize but remain stable and favor cysts. There are few additional subtle hypodense lesions within the liver with the largest in the right hepatic lobe measuring 2.3 cm. These are also stable and favor hemangiomas. The main portal vein is patent. The gallbladder, spleen, adrenal glands, and pancreas are unremarkable. Normal right kidney. Stable 9 mm hypodense lesion within the upper pole of the left kidney likely representing a cyst. No hydronephrosis. There is a tiny residual old subcapsular hematoma remaining within the left kidney best in image 163 measuring 6 mm in thickness. This has decreased in size. No acute subcapsular hematoma identified. No retroperitoneal lymphadenopathy. Normal caliber abdominal aorta. No pelvic lymphadenopathy or pelvic free fluid. The bladder, uterus, and ovaries are unremarkable. There is minimal inflammatory change versus a normal vessels adjacent to a few diverticula within the descending colon best seen on image 288. Mild diffuse thickening throughout of the majority colon most pronounced within the rectum. The tip the appendix is best seen image 372 and measures up to 11 mm in diameter. There is questionable minimal inflammatory change adjacent to the tip the appendix. IMPRESSION: 1. Mild diffuse thickening throughout the majority of the colon most pronounced within the rectum. This favors a mild proctocolitis. 2. The tip of the appendix measures up to 11 mm and there is question of minimal adjacent inflammatory change. An early acute tip appendicitis is not excluded. Surgical consultation recommended. 3. Minimal inflammatory change versus the normal vessels adjacent to a few diverticula within the descending colon. An acute diverticulitis is considered less likely but not entirely excluded. 4. Tiny residual old subcapsular hematoma within the left kidney which has decreased in size. 5. Additional findings as described above. ACT 112: Negative or not required by law. Electronically signed by: Adalberto Nguyen M.D. 07/16/2022 1:26 PM Supervising Physician Co-Signing Physician Notes Patient seen and examined independently. Chart reviewed. Case discussed with LUIS A. Agree with above Contacted by GI, recommend starting solumedrol 20mg IV Q8 for empiric treatment of UC flare, formal consult to follow. Stool studies pending.
[2022-07-16] MEDS ORDERED: POLYETHYLENE (MIRALAX) 17 GM PACK PO PRN (15:35)
[2022-07-16] MEDS ORDERED: ONDANSETRON INJ 2 MG/ML 2 ML VIAL IV PRN (15:35)
[2022-07-16] MEDS ORDERED: ACETAMINOPHEN 325 MG TAB PO PRN (15:35)
[2022-07-16] MEDS: ACETAMINOPHEN 500 MG TAB PO SCH (16:30)
[2022-07-16] MEDS: oxyCODONE HCL IR 5 MG TAB (IMMEDIATE RELEASE) PO PRN (19:35)
[2022-07-16] MEDS: methylPREDNISolone 20 MG in SYRINGE 0 ML IV SCH (21:10)
[2022-07-17] MEDS: ACETAMINOPHEN 500 MG TAB PO SCH ×4 (00:10→23:49)
[2022-07-17] MEDS: methylPREDNISolone 20 MG in SYRINGE 0 ML IV SCH (05:33)
[2022-07-17] MEDS: oxyCODONE HCL IR 5 MG TAB (IMMEDIATE RELEASE) PO PRN (05:36)
[2022-07-17 07:44] LABS: Hematocrit (blood only) 38.6 % (37.0-47.0); Hemoglobin 12.4 g/dl (12.0-16.0); Mean Corpuscular Hemoglobin 24.5 pg (25.0-34.0); Mean Corpuscular Hgb Conc 32.1 g/dL (32.0-36.0); Mean Corpuscular Volume 76.1 fL (80.0-100.0); Mean Platelet Volume 9.9 fL (9.4-12.4); Platelet Count 323 K/uL (130-400); RDW Coefficient of Variation 14.1 % (11.5-14.5); RDW Standard Deviation 38.5 fL (36.4-46.3); Red Blood Count 5.07 M/uL (4.20-5.40)
[2022-07-17 08:00] LABS: BUN Creatinine Ratio 18.6 (10-20); Calcium 9.1 mg/dl (8.6-10.3); Est GFR (African American) 135.7 ml/min; Est GFR (Non-African American) 117.1 ml/min; Potassium 4.2 mmol/L (3.5-5.1)
[2022-07-17] MEDS: lisinopril 20 MG TAB PO SCH (08:13)
[2022-07-17 08:20] LABS: Ferritin 76.2 ng/ml (8-388)
--- NOTE | 2022-07-17 09:51 | Gastrointestinal Consultation ---
Date of Consultation July 17, 2022 Assessment & Plan (1) Abnormal CT of the abdomen: 36 yo female with abd pain and rectal bleeding as well as loose stool alternating with constipaiton over several months. Now with 2-3 days of nausea, vomiting, abd pain and diarrhea with some blood. Feeling better today. Hungry. CT findings reviewed. Symptoms not clear for UC and no proior endoscopic or histologic diagnosis of such. Clinically she does not have appendicitis or diverticulitis. Will plan for colonoscopy Tuesday. Please start the prep early int he morning Tuesday as she is diabetic and on Wegovy and has slowed motility. An outpatient GES is already scheduled. (2) Abdominal pain: (3) Rectal bleeding: History of Present Illness Reason for Consultation: abd pain, rectal bleeding Attending Physician: Maribel Light MD History of Present Illness 36 yo female with DM and obesity (on Wegovy x 2 months) who was admitted with 2 days of nausea, vomiting and loose stool which then became blood tinged. She has not had a BM since admission. She tells me that she has had abd pain and rectal bleeding off and on for several months. Was seen int he office by JUANJO Kirkland and had a colonoscopy arranged to help figure this out in October. Her mother has Crohn's disease. Natalie tells me that she usually has a BM every 1-2 days. Small amounts. Loose at times but not always. Some bright red blood at times. THe nausea has been rpesent since starting the Wegovy, but worse the last 2-3 dsays and now with some vomiting at home. No fevers. Feels ok today. Hungry. She had a CT scan done int he ER which showed mild diffuse thickening of the colon and rectum. There was a question of inflammation involving the appendix but not having any right sided pain or symptoms ot suggest appendicitis. Allergies Allergy/AdvReac Type Severity Reaction Status Date / Time No Known Allergies Allergy Verified 01/01/20 10:59 Home Medications Medication Instructions Recorded Confirmed Type lisinopril 20 1 tab PO DAILY 07/16/22 07/16/22 History mg-hydrochlorothiazide 12.5 mg tablet metformin 500 mg tablet 500 mg PO DAILY 07/16/22 07/16/22 History ondansetron HCl 4 mg tablet 4 mg PO Q8H PRN Nausea 07/16/22 07/16/22 History semaglutide (weight loss) 0.5 0.5 mg subcut WK 07/16/22 07/16/22 History mg/0.5 mL subcutaneous pen injector (Wegovy) Patient History Medical History (Updated 07/17/22 @ 09:49 by Dayanna Valdez, DO) Acute flank pain Asymptomatic bacteriuria Asymptomatic microscopic hematuria Asymptomatic proteinuria Blood in urine found in u/a Blood pressure elevated without history of HTN DVT prophylaxis Flank pain GERD (gastroesophageal reflux disease) Gestational diabetes mellitus (GDM) in third trimester HTN (hypertension) Intractable pain Morbid obesity Nephrotic syndrome Proteinuria 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 Beliefs That Will Affect Care: None marital status: Current Living Situation: Spouse Feels Safe at Home: Yes Safety Concerns: Feels Safe At This Time Assistive Devices: None Review of Systems Review of Systems: All systems reviewed & are unremarkable except as noted in HPI & below Physical Exam Constitutional: WD/WN, vitals as above Respiratory: normal respiratory effort, lungs clear to auscultation Cardiovascular: RRR, no murmur, no edema Gastrointestinal (Abdomen): Inspection/Auscultation: normal bowel sounds Percussion/Palpation: + abdomen tender (mild left) Results & Data Vital Signs (Past 12 Hours) Vital Signs Temp Pulse Resp BP Pulse Ox O2 Del Method 07/17/22 07:34 36.4 C L 71 16 122/81 96 Room Air
--- NOTE | 2022-07-17 09:57 | Surgery Progress Note ---
Date of Service July 17, 2022 Assessment & Plan (1) Abdominal pain: Plan: She continues to have left-sided abdominal pain and no right-sided abdominal pain No plans for appendectomy We will defer to medicine and GI for further work-up/treatment plan Surgery will sign off at this time, please call with any questions or concerns (2) Proctocolitis: Admission and Anticipated Discharge Date Admission Date: July 16, 2022 Subjective Patient seen and examined. Still with left-sided abdominal pain. Has not had a bowel movement last day. Afebrile. No nausea or vomiting. Review of Systems Constitutional: no fever and no chills Gastrointestinal: + abdominal pain; no nausea and no vomiting Physical Exam Constitutional: WD/WN, vitals as above Gastrointestinal (Abdomen): Inspection/Auscultation: abdomen normal to inspection; abdomen not distended Percussion/Palpation: + abdomen tender (Left-sided) and abdomen soft; no guarding, abdomen not rigid and no hernia Results & Data Vital Signs (Past 12 Hours) Vital Signs Temp Pulse Resp BP Pulse Ox O2 Del Method 07/17/22 07:34 36.4 C L 71 16 122/81 96 Room Air PG Care Time/CCT Total # of Minutes Spent Total Time Spent with Patient: Total time spent is greater than 50% in coordination of care (as documented) at patient's floor/unit and/or counseling patient: Coding Level of Care Code 89086 SUB INP/OBS CARE 1/25MIN Diagnoses Abdominal pain R10.9 Proctocolitis K52.9
--- NOTE | 2022-07-17 16:46 | Hospitalist Progress Note ---
Date of Service July 17, 2022 Assessment & Plan (1) Proctocolitis: Plan: 36-year-old female with PMH of type 2 diabetes, hypertension, obesity on Wegovy who presents with 2 days of nausea and diarrhea Recently began following with GI due to h/o intermittent bloody bowel mvmts over past few months, mom with h/o Crohn's, due for colonoscopy in October N/V, Diarrhea with some blood on the morning prior to arrival to ER CT abd/P noted mild proctocolitis. Tiny residual old subcapsular hematoma within left kidney has decreased in size Discussed with GI Plan for colonoscopy on tuesday. Regular diet today. Start golytely tomorrow morning Solumedrol stopped for now per GI recs There was concern on CT for possible early appendicitis cannot be ruled out but this is not supported on exam. Confirmed by surgeon. No intervention needed. (2) Abnormal CT of the abdomen: (3) Type 2 diabetes mellitus: Plan: A1c improved to 6.4 this month, following with wt loss and nutrition as outpatient, on Wegovy for a few months. Carb consistent diet, Hold Metformin while admitted (4) HTN (hypertension): Plan: Lisinopril-hctz at home. Continue lisinopril DVT Ppx: SCDs Code status: FULL PCP: Phoebe Dispo: Admitted to med/surg I spent a total of 45 minutes coordinating, documenting and providing care for this patient excluding time spent in performance of separately billed services Admission and Anticipated Discharge Date Admission Date: July 16, 2022 Subjective Patient seen and examined Reports left sided abd pain has improved No vomiting today No BM today. Reported diarrhea yesterday Denied any other complaints Physical Exam Constitutional: + well hydrated and + obese; no acute distress Eyes: PERRL, conjunctivae normal, anicteric sclerae ENMT: external ear and nose normal, oropharynx normal Respiratory: normal respiratory effort, lungs clear to auscultation Cardiovascular: Rate/Rhythm: regular rate and regular rhythm S1 S2 Gastrointestinal (Abdomen): Inspection/Auscultation: abdomen normal to inspection and normal bowel sounds; abdomen not distended Left abdominal tenderness Musculoskeletal: no cyanosis or clubbing, extremities motor strength 5/5 Neurologic: PERRL, EOMI, accommodation nl, no face palsy, no dysarthria Psychiatric: A+Ox3, euthymic affect Results & Data Results & Data Vital Signs (Past 12 Hours) Vital Signs Temp Pulse Resp BP Pulse Ox O2 Del Method 07/17/22 16:22 36.4 C L 74 16 117/72 95 Room Air 07/17/22 07:34 36.4 C L 71 16 122/81 96 Room Air Laboratory Results Abnormal lab results 07/17/22 07/17/22 Range/Units 07:14 07:14 MCV 76.1 L (80.0-100.0) fL MCH 24.5 L (25.0-34.0) pg Creatinine 0.59 L (0.6-1.2) mg/dl Glucose 134 H (70-99(Fasting)) mg/dl
[2022-07-17] MEDS ORDERED: ALUMINUM/MAGNESIUM/SIMETH (MAALOX MAX) 30 ML UDC PO PRN (20:32)
[2022-07-18] MEDS ORDERED: ZOLPIDEM TARTRATE 5 MG TAB PO STA (03:15)
[2022-07-18 07:32] LABS: Hematocrit (blood only) 38.3 % (37.0-47.0); Hemoglobin 12.2 g/dl (12.0-16.0); Mean Corpuscular Hemoglobin 24.5 pg (25.0-34.0); Mean Corpuscular Hgb Conc 31.9 g/dL (32.0-36.0); Mean Corpuscular Volume 76.9 fL (80.0-100.0); Mean Platelet Volume 10.4 fL (9.4-12.4); Platelet Count 325 K/uL (130-400); RDW Coefficient of Variation 14.6 % (11.5-14.5); RDW Standard Deviation 39.8 fL (36.4-46.3); Red Blood Count 4.98 M/uL (4.20-5.40); White Blood Count 8.15 K/ul (4.8-10.8)
[2022-07-18] MEDS: lisinopril 20 MG TAB PO SCH (07:53)
[2022-07-18] MEDS: LAVAGE SOLUTION 4000ML PO SCH (07:53)
[2022-07-18 07:54] LABS: BUN Creatinine Ratio 21.3 (10-20); Calcium 9.1 mg/dl (8.6-10.3); Creatinine Clr Calc Pharmacy 154.7 ml/min; Est GFR (African American) 134.2 ml/min; Est GFR (Non-African American) 115.8 ml/min; Potassium 3.4 mmol/L (3.5-5.1)
[2022-07-18] MEDS: ACETAMINOPHEN 500 MG TAB PO SCH ×3 (07:54→23:56)
[2022-07-18] MEDS ORDERED: CETIRIZINE HCL 10 MG TABLET PO PRN (08:18)
[2022-07-18] MEDS ORDERED: POTASSIUM CHLORIDE CRTAB 20 MEQ TABCR PO STA (08:59)
[2022-07-18] MEDS: oxyCODONE HCL IR 5 MG TAB (IMMEDIATE RELEASE) PO PRN ×2 (09:05→22:17)
--- NOTE | 2022-07-18 11:49 | Hospitalist Progress Note ---
Date of Service July 18, 2022 Assessment & Plan (1) Proctocolitis: Plan: 36-year-old female with PMH of type 2 diabetes, hypertension, obesity on Wegovy who presents with 2 days of nausea and diarrhea Recently began following with GI due to h/o intermittent bloody bowel mvmts over past few months, mom with h/o Crohn's, due for colonoscopy in October N/V, Diarrhea with some blood on the morning prior to arrival to ER CT abd/P noted mild proctocolitis. Tiny residual old subcapsular hematoma within left kidney has decreased in size Plan for colonoscopy tomorrow. Continue bowel prep Clear liquid diet today. NPO PMN. There was concern on CT for possible early appendicitis cannot be ruled out but this is not supported on exam. Confirmed by surgeon. No intervention needed. Replete hypokalemia (2) Abnormal CT of the abdomen: (3) Type 2 diabetes mellitus: Plan: A1c improved to 6.4 this month, following with wt loss and nutrition as outpatient, on Wegovy for a few months. Clear liquid diet today Hold Metformin while admitted (4) HTN (hypertension): Plan: Lisinopril-hctz at home. Continue lisinopril DVT Ppx: SCDs Code status: FULL PCP: Phoebe Dispo: Admitted to med/surg I spent a total of 45 minutes coordinating, documenting and providing care for this patient excluding time spent in performance of separately billed services Admission and Anticipated Discharge Date Admission Date: July 16, 2022 Subjective Patient seen and examined Reports left sided abd pain and nausea after starting her bowel prep Has not had a BM since admission Denied any other complaints on ROS Physical Exam Constitutional: + well hydrated and + obese; no acute distress Eyes: PERRL, conjunctivae normal, anicteric sclerae ENMT: external ear and nose normal, oropharynx normal Respiratory: normal respiratory effort, lungs clear to auscultation Cardiovascular: Rate/Rhythm: regular rate and regular rhythm S1 S2 Gastrointestinal (Abdomen): Inspection/Auscultation: abdomen normal to inspection and normal bowel sounds; abdomen not distended Mild LLQ tenderness Musculoskeletal: no cyanosis or clubbing, extremities motor strength 5/5 Neurologic: PERRL, EOMI, accommodation nl, no face palsy, no dysarthria Psychiatric: A+Ox3, euthymic affect Results & Data Results & Data Vital Signs (Past 12 Hours) Vital Signs Temp Pulse Resp BP Pulse Ox O2 Del Method 07/18/22 07:05 36.5 C 67 16 123/84 96 Room Air Laboratory Results Abnormal lab results 07/18/22 07/18/22 Range/Units 06:46 06:46 MCV 76.9 L (80.0-100.0) fL MCH 24.5 L (25.0-34.0) pg MCHC 31.9 L (32.0-36.0) g/dL RDW Coeff of Amrit 14.6 H (11.5-14.5) % Potassium 3.4 L (3.5-5.1) mmol/L BUN/Creatinine Ratio 21.3 H (10-20)
[2022-07-19] MEDS: lisinopril 20 MG TAB PO SCH (07:53)
[2022-07-19] MEDS: LAVAGE SOLUTION 4000ML PO SCH (07:53)
[2022-07-19] MEDS: ACETAMINOPHEN 500 MG TAB PO SCH (07:53)
--- NOTE | 2022-07-19 08:17 | Anesthesiology Consultation ---
Date of Service July 19, 2022 Assessment & Plan Chart Review Chart Review: Acceptable Risk for Surgery Consults Requested none ASA ASA3 Proposed Anesthesia Anesthesia Type: MAC Risk / Benefits Reviewed With: PT / POA / Parent / Guardian, Accepts Plan and Informed Consent Obtained History Surgery Operation Date: 07/19/22 16:45 Proposed Procedures p Colonoscopy Dr Jairo Gill MD Height/Weight Height: 5 ft 4 in Weight: 112 kg Allergies Allergy/AdvReac Type Severity Reaction Status Date / Time No Known Allergies Allergy Verified 01/01/20 10:59 Medications Home Medications Medication Instructions Recorded Confirmed Last Taken lisinopril 20 1 tab PO DAILY 07/16/22 07/16/22 07/15/22 mg-hydrochlorothiazide 12.5 mg tablet metformin 500 mg tablet 500 mg PO DAILY 07/16/22 07/16/22 07/15/22 ondansetron HCl 4 mg tablet 4 mg PO Q8H PRN Nausea 07/16/22 07/16/22 07/15/22 semaglutide (weight loss) 0.5 0.5 mg subcut WK 07/16/22 07/16/22 07/13/22 mg/0.5 mL subcutaneous pen injector (Luis) Active Medications Generic Name Dose Route Start Last Admin Trade Name Freq PRN Reason Stop Dose Admin Acetaminophen 1,000 mg 07/16/22 16:00 07/19/22 07:53 Acetaminophen 500 Mg Tab PO 08/15/22 15:59 1,000 mg Q8H LIZ Administration Al Hydrox/Mg Hydrox/Simethicone 30 ml 07/17/22 20:32 07/17/22 21:15 Aluminum/Magnesium/Simeth (Maalox Max) 30 Ml Udc PO 08/16/22 20:31 30 ml Q6H PRN Administration Heartburn Cetirizine HCl 10 mg 07/18/22 08:18 07/18/22 09:05 Cetirizine Hcl 10 Mg Tablet PO 08/17/22 08:59 10 mg QAM PRN Administration Allergic Symptoms Methylprednisolone 20 mg/ 0.32 mls @ 1.5 mls/min 07/16/22 22:00 07/17/22 05:33 Syringe IV 08/15/22 21:59 1.5 mls/min Q8 LIZ Administration Lisinopril 20 mg 07/17/22 09:00 07/19/22 07:53 Lisinopril 20 Mg Tab PO 08/16/22 08:59 20 mg QAM LIZ Administration Ondansetron HCl 4 mg 07/16/22 15:35 07/18/22 20:48 Ondansetron Inj 2 Mg/Ml 2 Ml Vial IV 08/15/22 15:34 4 mg Q6H PRN Administration Nausea Oxycodone HCl 5 mg 07/16/22 15:58 07/18/22 22:17 Oxycodone Hcl Ir 5 Mg Tab (Immediate Release) PO 07/30/22 15:57 5 mg Q6H PRN Administration Severe Pain (Scale 7, 8, 9,10) Polyethylene Glycol/Electrolytes 16 dose 07/18/22 08:00 07/19/22 07:53 Lavage Solution 4000ml PO 08/17/22 07:59 16 dose TODAY@0800 LIZ Administration NPO Date Last Intake of Fluids: 07/18/22 Time Last Intake of Fluids: 18:00 Date Last Intake of Solids: 07/18/22 Time Last Intake of Solids: 22:00 Past Medical History Medical History Acute flank pain Asymptomatic bacteriuria Asymptomatic microscopic hematuria Asymptomatic proteinuria Blood in urine found in u/a Blood pressure elevated without history of HTN DVT prophylaxis Flank pain GERD (gastroesophageal reflux disease) Gestational diabetes mellitus (GDM) in third trimester HTN (hypertension) Intractable pain Morbid obesity Nephrotic syndrome Proteinuria DR. SETHI SIGHTER Type 2 diabetes mellitus Exercise / Class Metabolic Activity II 4-5 Yardwork/Stairs/Walk up hill Past Family History Family History Father Family history of diabetes mellitus Brother Family history of diabetes mellitus Grandfather (Maternal) Family history of diabetes mellitus Denies family history of Ovarian cancer Prostate cancer Myocardial infarction Breast cancer Colorectal cancer Past Surgical History Surgical History Hx of tubal ligation Hx of wisdom tooth extraction NO ANESTHESIA USED/ONLY NOVOCAINE Past Anesthesia History No Hx of Anesthesia Complications History of PONV No Hx of PONV Social History Smoking Status: Former smoker tobacco type: cigarettes Do You Dip or Chew Tobacco: No Hx Alcohol Use: No Hx Substance Use: No substance use type: does not use Physical Exam Vital Signs Last Vital Signs Temp 36.5 C 07/19/22 07:58 Pulse 76 07/19/22 07:58 Resp 20 07/19/22 07:58 BP 113/80 07/19/22 07:58 Pulse Ox 97 07/19/22 07:58 O2 Del Method Room Air 07/19/22 07:58 ENMT Thyromental Distance: > or= 3.5 Finger Breadths Mallampati Class: II Respiratory normal respiratory effort Auscultation: lungs clear to auscultation bilaterally Cardiovascular Rate/Rhythm: regular rate and regular rhythm Psychiatric Orientation: alert Testing Laboratory Results Urine Color Red 07/16/22 13:27 Urine Appearance Slightly Cloudy (Clear) 07/16/22 13:27 Urine pH 5.5 (4.5-7.5) 07/16/22 13:27 Ur Specific [place] 1.025 (1.000-1.030) 07/16/22 13:27 Urine Protein 3+ (Negative) H 07/16/22 13:27 Urine Glucose (UA) Negative (Negative) 07/16/22 13:27 Urine Ketones Negative (Negative) 07/16/22 13:27 Urine Nitrite Negative (Negative) 07/16/22 13:27 Ur Leukocyte Esterase Negative (Negative) 07/16/22 13:27 Urine RBC >30 /hpf (0-4) H 07/16/22 13:27 Urine WBC 5-10 /hpf (0-5) H 07/16/22 13:27 Ur Epithelial Cells 10-20 /lpf (0-5) H 07/16/22 13:27 07/16/22 13:27 Urine Culture - Final Urine,Clean Catch Three types or organisms present, all moderate counts probable skin matti. No further identifications or sensitivities to follow.
[2022-07-19 08:20] LABS: Hematocrit (blood only) 36.6 % (37.0-47.0); Hemoglobin 11.9 g/dl (12.0-16.0); Mean Corpuscular Hemoglobin 24.9 pg (25.0-34.0); Mean Corpuscular Hgb Conc 32.5 g/dL (32.0-36.0); Mean Corpuscular Volume 76.6 fL (80.0-100.0); Mean Platelet Volume 10.2 fL (9.4-12.4); Platelet Count 291 K/uL (130-400); RDW Coefficient of Variation 14.8 % (11.5-14.5); RDW Standard Deviation 41.1 fL (36.4-46.3); Red Blood Count 4.78 M/uL (4.20-5.40); White Blood Count 6.24 K/ul (4.8-10.8)
[2022-07-19] MEDS ORDERED: PROPOFOL IV EMULSION 10 MG/ML 20 ML VIAL IV ONE ×2 (08:20)
[2022-07-19] MEDS ORDERED: LIDOCAINE 2% MPF LOCAL 5 ML VIAL ONE (08:20)
--- NOTE | 2022-07-19 08:34 | Gastroenterology Progress Note ---
Date of Service July 19, 2022 Assessment & Plan (1) Abdominal pain: Plan: Plan for Colonoscopy today (2) Abnormal CT of the abdomen: (3) Rectal bleeding: Admission and Anticipated Discharge Date Admission Date: July 16, 2022 Subjective Feels well, no bleeding with prep. Physical Exam Constitutional: WD/WN, vitals as above Cardiovascular: RRR, no murmur, no edema Gastrointestinal (Abdomen): normal bowel sounds, soft, nontender, no hepatosplenomegaly Results & Data Vital Signs (Past 12 Hours) Vital Signs Temp Pulse Resp BP Pulse Ox O2 Del Method 07/19/22 08:24 36.4 C L 79 18 122/81 98 Room Air 07/19/22 07:58 36.5 C 76 20 113/80 97 Room Air 07/19/22 05:55 36.4 C L 76 18 131/92 97 Room Air
--- NOTE | 2022-07-19 09:16 | GI REPORT ---
Patient Name: Natalie Ponce Procedure Date: 07/19/2022 8:22 AM Date of : 1985 Admit Type: Inpatient Age: 36 Gender: Female Attending MD: Bakari Gill MD, Procedure: Colonoscopy Providers: Bakari Gill MD Referring MD: Roberto Keane Indications: Clinically significant diarrhea of unexplained origin, Rectal bleeding, Abnormal CT of the GI tract Medicines: Propofol per Anesthesia Complications: No immediate complications. Estimated blood loss: None. Estimated Blood Loss: Estimated blood loss was minimal. Procedure: Pre-Anesthesia Assessment: - Pre-Anesthesia Assessment: - Prior to the procedure, a History and Physical was performed, and patient medications, allergies and sensitivities were reviewed. The patient's tolerance of previous anesthesia was reviewed. Please see [employer] for complete details. - The risks and benefits of the procedure and the sedation options and risks were discussed with the patient. All questions were answered and informed consent was obtained. - Patient identification and proposed procedure were verified prior to the procedure by the physician and the nurse. The procedure was verified in the pre-procedure area in the procedure room. After obtaining informed consent, the endoscope was passed carefully and meticuously under direct vision and only advanced when the lumen was clearly identified, C02 insuflation was utilized throughout the entirity of the procedure. Throughout the procedure, the patient's blood pressure, pulse, and oxygen saturations were monitored continuously. After I obtained informed consent, the scope was passed under direct vision. Throughout the procedure, the patient's blood pressure, pulse, and oxygen saturations were monitored continuously. The Colonoscope was introduced through the anus and advanced to the terminal ileum, with identification of the appendiceal orifice and IC valve. The colonoscopy was performed without difficulty. The patient tolerated the procedure well. The quality of the bowel preparation was fair. Findings: Multiple small-mouthed diverticula were found in the sigmoid colon. Internal hemorrhoids were found during retroflexion. The terminal ileum appeared normal. Biopsies for histology were taken with a cold forceps from the entire colon for evaluation of microscopic colitis. Impression: - Preparation of the colon was fair. - Diverticulosis in the sigmoid colon. - Internal hemorrhoids. - The examined portion of the ileum was normal. - Biopsies were taken with a cold forceps from the entire colon for evaluation of microscopic colitis. Recommendation: - [facility] for possible discharge same day. - Await pathology results. - Return to nurse practitioner Ms. Roberto Keane as scheduled. Bakari Gill MD 07/19/2022 9:15:53 AM This report has been signed electronically. Note Initiated On: 07/19/2022 8:22 AM Number of Addenda: 0 I attest to the content of the Intraoperative Record and orders documented therein, exceptions below {[id number]}
[2022-07-19 09:42] LABS: Calcium 8.4 mg/dl (8.6-10.3); Potassium 3.7 mmol/L (3.5-5.1)
[2022-07-19 09:48] LABS: Creatinine Clr Calc Pharmacy 157.3 ml/min; Est GFR (Non-African American) 116.4 ml/min; Phosphorus 2.6 mg/dl (2.5-4.9)
--- NOTE | 2022-07-19 10:11 | Anesthesiology Progress Note ---
Date of Service July 19, 2022 Anesthesia Post Procedure Vital Signs Vital Signs: Temp Pulse Resp BP Pulse Ox O2 Del Method 07/19/22 09:31 61 16 128/91 97 Room Air 07/19/22 09:16 79 16 133/99 98 Room Air 07/19/22 09:01 84 18 126/71 98 Room Air 07/19/22 08:24 36.4 C L 79 18 122/81 98 Room Air 07/19/22 07:58 36.5 C 76 20 113/80 97 Room Air 07/19/22 05:55 36.4 C L 76 18 131/92 97 Room Air 07/18/22 15:06 36.6 C 65 16 118/82 96 Room Air Pain Intensity Abdomen: Pain Intensity: 5 Transfer of Care Handoff Completed per policy Notes Mental Status: alert / awake / arousable and participated in evaluation Nausea / Vomiting: adequately controlled Pain: adequately controlled Airway Patency, RR, SpO2: stable & adequate BP & HR: stable & adequate Hydration State: stable & adequate Anesthetic Complications: no major complications apparent and Pt Satisfied with anesthetic care
--- NOTE | 2022-07-19 13:47 | Discharge Summary ---
Date of Service July 19, 2022 Admission HPI Per Admitting Provider This is a 36-year-old female with PMH of type 2 diabetes, hypertension, obesity on Wegovy who presents with 2 days of nausea, vomiting and diarrhea that felt like a stomach bug. Diarrhea became bloody in nature earlier today with associated abdominal discomfort. Describes belly pain as left lower abdominal pain that is radiating towards her back. Called GI office as she is dealt with episodes of diverticulitis in the past, and they encouraged her to come to ED for further evaluation. Also states she has had intermittent bloody bowel movements over the past few months, which is why she established with GI in the first place. Mother with history of Crohn's. Patient is scheduled for her first colonoscopy this coming October. Denies any fever, chills or vomiting. No headache, chest pain, shortness of breath, dysuria or constipation. Did start her period earlier today. Is not on any blood thinners. Admission Exam Per Admitting Provider General Appearance:WD/WN, vitals as above, NAD, sitting up in bed, pleasant, conversing easily, obese Head: normocephalic, atraumatic Eyes:normal inspection, PERRL, conjunctivae normal, anicteric sclerae ENT: external ear and nose normal, oropharynx normal Neck: normal visual inspection, trachea midline, no thyromegaly Respiratory:normal respiratory effort, lungs clear to auscultation, no wheeze, rales, rhonchi. No accessory muscle use Cardiovascular: regular rate, rhythm, no murmur, normal peripheral pulses, no BLE edema. Vessels: no JVD Chest: normal inspection of chest Abdomen/GI: normal bowel sounds, soft, LLQ TTP, no hepatosplenomegaly Extremities/Musculoskeletal: no cyanosis or clubbing, extremities motor strength 5/5 Neurologic: PERRL, EOMI, accommodation nl, no face palsy, no dysarthria, CN's II-XI intact bilaterally and moves all extremities Psychiatric:A+Ox3, euthymic affect Skin: no rashes, normal color, warm/dry Principal Diagnosis Abdominal pain Proctocolitis Discharge Exam Constitutional + well hydrated and + obese; no acute distress Eyes PERRL, conjunctivae normal, anicteric sclerae ENMT external ear and nose normal, oropharynx normal Respiratory normal respiratory effort, lungs clear to auscultation Cardiovascular Rate/Rhythm: regular rate and regular rhythm S1 S2 Gastrointestinal (Abdomen) Inspection/Auscultation: abdomen normal to inspection and normal bowel sounds; abdomen not distended No tenderness Musculoskeletal no cyanosis or clubbing, extremities motor strength 5/5 Neurologic PERRL, EOMI, accommodation nl, no face palsy, no dysarthria Psychiatric A+Ox3, euthymic affect Discharge Data Allergies Allergy/AdvReac Type Severity Reaction Status Date / Time No Known Allergies Allergy Verified 07/19/22 08:21 Consultations 07/16/22 15:01 ED Decision to Admit Stat 07/16/22 15:55 Consult Gastroenterology Routine Procedures Performed Operation Date: 07/19/22 16:45 Actual Procedures p Colonoscopy Biopsy Cytology - Bakari Gill MD Ordered Studies 07/16/22 12:25 CT abd pelvis IV con only Stat The lung bases are clear. No pneumoperitoneum. No pneumatosis. No acute fractures identified. There are few subcentimeter hypodense lesions within the liver which are too small to characterize but remain stable and favor cysts. There are few additional subtle hypodense lesions within the liver with the largest in the right hepatic lobe measuring 2.3 cm. These are also stable and favor hemangiomas. The main portal vein is patent. The gallbladder, spleen, adrenal glands, and pancreas are unremarkable. Normal right kidney. Stable 9 mm hypodense lesion within the upper pole of the left kidney likely representing a cyst. No hydronephrosis. There is a tiny residual old subcapsular hematoma remaining within the left kidney best in image 163 measuring 6 mm in thickness. This has decreased in size. No acute subcapsular hematoma identified. No retroperitoneal lymphadenopathy. Normal caliber abdominal aorta. No pelvic lymphadenopathy or pelvic free fluid. The bladder, uterus, and ovaries are unremarkable. There is minimal inflammatory change versus a normal vessels adjacent to a few diverticula within the descending colon best seen on image 288. Mild diffuse thickening throughout of the majority colon most pronounced within the rectum. The tip the appendix is best seen image 372 and measures up to 11 mm in diameter. There is questionable minimal inflammatory change adjacent to the tip the appendix. IMPRESSION: 1. Mild diffuse thickening throughout the majority of the colon most pronounced within the rectum. This favors a mild proctocolitis. 2. The tip of the appendix measures up to 11 mm and there is question of minimal adjacent inflammatory change. An early acute tip appendicitis is not excluded. Surgical consultation recommended. 3. Minimal inflammatory change versus the normal vessels adjacent to a few diverticula within the descending colon. An acute diverticulitis is considered less likely but not entirely excluded. 4. Tiny residual old subcapsular hematoma within the left kidney which has decreased in size. 5. Additional findings as described above. Hospital Course (1) Proctocolitis: 36-year-old female with PMH of type 2 diabetes, hypertension, obesity on Wegovy who presents with 2 days of nausea and diarrhea Recently began following with GI due to h/o intermittent bloody bowel mvmts over past few months, mom with h/o Crohn's, due for colonoscopy in October N/V, Diarrhea with some blood on the morning prior to arrival to ER CT abd/P noted mild proctocolitis. Tiny residual old subcapsular hematoma within left kidney has decreased in size There was concern on CT for possible early appendicitis cannot be ruled out but this is not supported on exam. Confirmed by surgeon. No appendicitis No diarrhea while inpatient Patient had colonoscopy by GI today which noted multiple small-mouthed d iverticula in sigmoid colon, internal hemorrhoids. Terminal ileus appeared normal. Biopsies were taken for entire colon for evaluation of microscopic colitis. Patient tolerating diet well post procedure Nausea and vomiting resolved. Has occasional Left abd pain. Discharged home on tylenol prn and 6 tabs of oxycodone 5mg tid prn for severe pain not controlled by tylenol. Patient to follow up results with GI outpatient (2) Abnormal CT of the abdomen: (3) Type 2 diabetes mellitus: A1c improved to 6.4 this month, following with wt loss and nutrition as outpatient, on Wegovy for a few months. Continue metformin (4) HTN (hypertension): Lisinopril-hctz at home. Total Time Total Time Spent Total Time Spent (In Minutes): 45 Total Time Includes: Examination of the Patient, Discharge Planning, Medication Reconciliation and Communication With Other Providers Discharge Plan Discharge Items Patient Disposition: Home - Self-Care Reason For Visit: Abdominal pain Discharge Diagnosis: Proctocolitis Activity: Resume your previous activity Non-emergency contact: Primary Care Provider and Drop Forger Helper Call non-emergency contact if: you have any medication questions and your symptoms worsen Follow-up/Referrals: Cristhian Sandhu MD [Primary Care Provider] - (Date & Time 07/23/2022 3:20 PM Provider Cristhian Sandhu MD Department [facility] ) Diet: Carb Consistent or DM2 and Heart Healthy Addtl Attending Provider Instructions: Mrs Ferreira You came to the hospital complaining of left sided abdominal pain. You were evaluated and found to have proctocolitis. You also had colonoscopy today. Please follow up with Gastroenterology about results of biopsy. Please use the oxycodone only as needed for severe pain not controlled by tylenol. It was a pleasure taking care of you. Pending Studies at Discharge: Yes (Pathology) Stand-Alone Forms: My [facility] [employer], Smoking Cessation Medications and DC Order Prescriptions: New oxycodone 5 mg Tablet 5 mg PO TID PRN (Reason: severe pain (scale score 7-10)) Qty: 6 0RF acetaminophen [Aphen] 325 mg tablet 650 mg PO Q6H PRN (Reason: pain) Qty: 20 0RF Continued metformin 500 mg tablet 500 mg PO DAILY lisinopril-hydrochlorothiazide 20-12.5 mg tablet 1 tab PO DAILY ondansetron HCl 4 mg tablet 4 mg PO Q8H PRN (Reason: Nausea) Wegovy 0.5 mg/0.5 mL pen injector 0.5 mg SUBCUT WK Rx Instructions: TUESDAY Discharge Orders: Discharge Order (Routine); Ordered 07/19/22 Ordered By: Maribel Mukherjee/Other Patient Handouts: High Blood Sugar (Hyperglycemia), Hypoglycemia (Low Blood Sugar), Managing Type 2 Diabetes Admission Data Admit Date/Time: 07/16/22 15:13 Attending Provider: Maribel Light I. Admit Provider: Markus Trevino Primary Care Provider: Cristhian Sandhu Other Providers: Markus Trevino ; Dayanna Valdez Other Interventions: Discharge Summary Assessment (RN) Last Done: 07/19/22 14:19
== END 2022-07-19 15:25 | disposition home or self-care (01) | DRG 386 ==
LOC: ED 11:10 → SUATTDRO 15:13 → EDINP 15:13 → 3N 17:19
DX: I10 Essential (primary) hypertension; Z79.84 Long term (current) use of oral hypoglycemic drugs; Z20.822 Contact with and (suspected) exposure to COVID-19; Z68.41 Body mass index [BMI] 40.0-44.9, adult; E66.9 Obesity, unspecified; K57.30 Diverticulosis of large intestine without perforation or abscess without bleeding; K51.30 Ulcerative (chronic) rectosigmoiditis without complications; Z79.899 Other long term (current) drug therapy; R93.5 Abnormal findings on diagnostic imaging of other abdominal regions, including retroperitoneum; E11.9 Type 2 diabetes mellitus without complications; Z87.891 Personal history of nicotine dependence; K64.8 Other hemorrhoids